=== PATIENT | female | born 1930 | race Caucasian/White ===

== ENCOUNTER 2017-08-20 13:09 | Inpatient (IN) | payer MEDICARE ==
[~2017-08-20] VITALS: Ht 162.6 cm; Wt 49.9 kg
[2017-08-20] MEDS ORDERED: Sodium Chloride 500ML 500 ML IV ONE (13:15)
[2017-08-20] MEDS ORDERED: MULTIGEN FOLIC1 EACH PO (13:19)
[2017-08-20] MEDS ORDERED: DICYCLOMINE HCL10 MG PO (13:19)
--- NOTE | 2017-08-20 13:19 | Emergency Room Report ---
History of Present Illness General Chief Complaint: Multiple Trauma/Fall Source: Patient, Medical Record, EMS Present Illness HPI Patient percent with complaints of fall and left-sided hip pain patient reports that she had a slip and fall denies any lightheadedness as any chest pain denies any focal weakness prior to the fall patient ambulates without any assistance Now she presents with pain to the left hip 06/04 reports of the morphine helped a little bit Denies any neuropathy otherwise Denies any neck pain denies any loss of consciousness Allergies: Coded Allergies: GABAPENTIN (Verified Allergy, Unknown, 08/20/17) HYDROCHLOROTHIAZIDE (Verified Allergy, Unknown, 08/20/17) PENTAZOCINE (Verified Allergy, Unknown, 08/20/17) Patient History Past Medical History: see triage record Pertinent Family History: none Reviewed Nursing Documentation: PMH: Agreed, PSxH: Agreed Nursing Documentation-PMH Past Medical History: No History, Except For Hx Hypertension: Yes Review of Systems All Other Systems: negative except mentioned in HPI Physical Exam Vital Signs Date Time Temp Pulse Resp B/P (MAP) Pulse Ox O2 Delivery O2 Flow Rate FiO2 08/20/17 13:00 97.9 64 16 128/66 98 Room Air Sp02 EP Interpretation: reviewed, normal General Appearance: well appearing, no apparent distress Head: normocephalic, atraumatic Eyes: bilateral eye PERRL, bilateral eye EOMI ENT: hearing grossly normal, normal pharynx, TMs + canals normal, uvula midline Neck: full range of motion, supple, no meningismus, no bony tend Respiratory: lungs clear, normal breath sounds, no rhonchi, no respiratory distress, no retraction, no accessory muscle use Cardiovascular #1: normal peripheral pulses, regular rate, rhythm, no edema, no gallop, no JVD, no murmur Gastrointestinal: normal bowel sounds, non tender, soft, no mass, no organomegaly, non-distended, no guarding, no hernia, no pulsatile mass, no rebound Genitourinary: no CVA tenderness Musculoskeletal: other - Patient is seated with left upper leg flex and even everted, tender with any slight touch. Neurovascularly intact however Neurologic: oriented x3, responsive, sensory intact Psychiatric: mood/affect normal Skin: normal color, no rash, warm/dry, palpation normal Lymphatic: normal inspection, no adenopathy Medical Decision Making Diagnostic Impression: Primary Impression: Hip fracture, left ER Course Given the patient's history and presentation imaging studies are obtained patient had preoperative for a evaluation as well CT imaging that showed left-sided femoral neck fracture Patient was further hydrated pain medications are provided At this time patient requires admission for further care Labs Test 08/20/17 13:35 White Blood Count 9.8 K/UL (4.8-10.8) Red Blood Count 3.16 M/UL (4.20-5.40) Hemoglobin 11.7 G/DL (12.0-16.0) Hematocrit 34.1 % (37.0-47.0) Mean Corpuscular Volume 108 FL (80-99) Mean Corpuscular Hemoglobin 37.1 PG (27.0-31.0) Mean Corpuscular Hemoglobin Concent 34.4 G/DL (32.0-36.0) Red Cell Distribution Width 11.6 % (11.6-14.8) Platelet Count 284 K/UL (150-450) Mean Platelet Volume 5.8 FL (6.5-10.1) Neutrophils (%) (Auto) 75.1 % (45.0-75.0) Lymphocytes (%) (Auto) 14.3 % (20.0-45.0) Monocytes (%) (Auto) 5.5 % (1.0-10.0) Eosinophils (%) (Auto) 4.2 % (0.0-3.0) Basophils (%) (Auto) 0.8 % (0.0-2.0) Prothrombin Time 9.6 SEC (9.30-11.50) Prothromb Time International Ratio 0.9 (0.9-1.1) Activated Partial Thromboplast Time 25 SEC (23-33) Sodium Level 141 MMOL/L (136-145) Potassium Level 4.4 MMOL/L (3.5-5.1) Chloride Level 106 MMOL/L (98-107) Carbon Dioxide Level 25 MMOL/L (21-32) Anion Gap 11 mmol/L (5-15) Blood Urea Nitrogen 32 mg/dL (7-18) Creatinine 1.3 MG/DL (0.55-1.30) Estimat Glomerular Filtration Rate mL/min (>60) Glucose Level 114 MG/DL (74-106) Calcium Level 9.4 MG/DL (8.5-10.1) Total Bilirubin 0.2 MG/DL (0.2-1.0) Aspartate Amino Transf (AST/SGOT) 27 U/L (15-37) Alanine Aminotransferase (ALT/SGPT) 34 U/L (12-78) Alkaline Phosphatase 85 U/L (46-116) Total Creatine Kinase 112 U/L (26-308) Creatine Kinase MB 2.1 NG/ML (0.0-3.6) Creatine Kinase MB Relative Index 1.8 Troponin I 0.017 ng/mL (0.000-0.056) Total Protein 6.9 G/DL (6.4-8.2) Albumin 3.7 G/DL (3.4-5.0) Globulin 3.2 g/dL Albumin/Globulin Ratio 1.2 (1.0-2.7) EKG Diagnostic Results Rate: normal Rhythm: NSR ST Segments: no acute changes Rhythm Strip Diag. Results EP Interpretation: yes Rate: 77 Rhythm: NSR, no PVC's, no ectopy Other X-Ray Diagnostic Results Other X-Ray Diagnostic Results : X-Ray ordered: left femur # of Views/Limited Vs Complete: 2 View Indication: Pain EP Interpretation: Yes Interpretation: no soft tissue swelling, other - Femoral neck fracture, displaced Impression: Other - acute fracture femoral neck Electronically Signed by: Kaveh Santa, CT/MRI/US Diagnostic Results CT/MRI/US Diagnostic Results : Impression CT pelvic:Impression: Severely comminuted and displaced fracture of the distal femoral neck and intertrochanteric region, as described Constipation Possible sequelae of prior L5-S1 spinal fusion with some retained hardware. Grade 1-2 spondylolisthesis of L5 on S1, no associated spondylolysis Other post surgical changes as described,, including right-sided sacral stimulator, evidence of prior hernia repair Colonic diverticulosis. The CT scanner at [facility] is accredited by the [employer] [place] [employer] and the scans are performed using protocols designed to limit radiation exposure to as low as reasonably achievable to attain images of sufficient resolution adequate for diagnostic evaluation. Last Vital Signs Date Time Temp Pulse Resp B/P (MAP) Pulse Ox O2 Delivery O2 Flow Rate FiO2 08/20/17 13:00 97.9 64 16 128/66 98 Room Air Status: improved Disposition: ADMITTED INPATIENT Condition: Serious KAEVH SANTA D.O. Aug 20, 2017 13:19
[2017-08-20] MEDS ORDERED: BUPRENORPHINE1 EAC1 TD (13:28)
[2017-08-20] MEDS ORDERED: BROMELAINS500 MG PO (13:28)
[2017-08-20] MEDS ORDERED: LEVOTHYROXINE75 MCG ORAL (13:28)
[2017-08-20] MEDS ORDERED: NAMENDA10 MG ORAL (13:28)
[2017-08-20] MEDS ORDERED: ASPIR 8181 MG ORAL (13:28)
[2017-08-20] MEDS ORDERED: METOPROLOL SUCC25 MG ORAL (13:28)
[2017-08-20] MEDS ORDERED: PRAVACHOL40 MG ORAL (13:28)
[2017-08-20] MEDS ORDERED: ZANTAC150 MG ORAL (13:28)
[2017-08-20] MEDS ORDERED: BIOTIN5000 MCG PO (13:28)
[2017-08-20] MEDS ORDERED: ALPHA LIPOIC AC50 M1 PO (13:28)
[2017-08-20] MEDS ORDERED: PAMELOR25 MG ORAL (13:28)
[2017-08-20] MEDS: Hydromorphone 0.5mg/0.5ml inj IVP ONE ×2 (13:35→13:37)
[2017-08-20] MEDS ORDERED: Morphine Sulfate 10mg/ml Inj IVP ONE (14:15)
[2017-08-20 14:21] LABS: BASOPHILS % (AUTO) 0.8 % (0.0-2.0); EOSINOPHILS % (AUTO) 4.2 % (0.0-3.0); HEMATOCRIT 34.1 % (37.0-47.0); HEMOGLOBIN 11.7 G/DL (12.0-16.0); LYMPHOCYTES % (AUTO) 14.3 % (20.0-45.0); MEAN CORPUSCULAR VOLUME 108 FL (80-99); MONOCYTES % (AUTO) 5.5 % (1.0-10.0); NEUTROPHILS % (AUTO) 75.1 % (45.0-75.0); PLATELET COUNT 284 K/UL (150-450); RED BLOOD COUNT 3.16 M/UL (4.20-5.40); RED CELL DISTRIBUTION WIDTH 11.6 % (11.6-14.8); WHITE BLOOD COUNT 9.8 K/UL (4.8-10.8)
[2017-08-20 14:28] LABS: INR 0.9 (0.9-1.1)
--- NOTE | 2017-08-20 14:42 | Diagnostic Imaging Report ---
Indication: TRAUMA left hip pain status post fall Technique: Noncontrast spiral acquisitions obtained through the pelvis. Multiplanar reconstructions generated. Total dose length product 369 mGycm. CTDIvol(s) 13 mGy. Dose reduction achieved using automated exposure control Comparison: None Findings: There is a complex severely comminuted fracture of the left femur. The fracture involves the distal femoral neck and the intertrochanteric region. The intertrochanteric portion of the fracture is severely comminuted. The distal femoral shaft is displaced anteriorly by over one bone width and significantly overrides, and the intervening fragments are severely angulated and displaced. There is only minimal if any overlying soft tissue contusion. There is no evidence of associated pelvic fracture. Right hip appears intact. There is a right buttock sacral stimulator artifact in place, with stimulator wire extending through the right S2 neural foramen into the posterior pelvis. The right lateral aspect of the L5-S1 disc appears to be ankylosed. Metallic foreign bodies in this area may represent old spinal fusion surgery hardware. There is grade 1-2 spondylolisthesis of L5 on S1. No associated pars defect The pelvic soft tissues are remarkable for the presence of considerable retained colonic fecal material. There is colonic diverticulosis. Hernia mesh anchors are seen in the anterior lower pelvis, especially to the left of midline Impression: Severely comminuted and displaced fracture of the distal femoral neck and intertrochanteric region, as described Constipation Possible sequelae of prior L5-S1 spinal fusion with some retained hardware. Grade 1-2 spondylolisthesis of L5 on S1, no associated spondylolysis Other post surgical changes as described,, including right-sided sacral stimulator, evidence of prior hernia repair Colonic diverticulosis. The CT scanner at [facility] is accredited by the [employer] and the scans are performed using protocols designed to limit radiation exposure to as low as reasonably achievable to attain images of sufficient resolution adequate for diagnostic evaluation.
[2017-08-20 14:44] LABS: ALANINE AMINOTRANSFERASE 34 U/L (12-78); ALBUMIN 3.7 G/DL (3.4-5.0); ALBUMIN/GLOBULIN RATIO 1.2 (1.0-2.7); ALKALINE PHOSPHATASE 85 U/L (46-116); ANION GAP 11 mmol/L (5-15); ASPARTATE AMINO TRANSFERASE 27 U/L (15-37); BILIRUBIN,TOTAL 0.2 MG/DL (0.2-1.0); BLOOD UREA NITROGEN 32 mg/dL (7-18); CALCIUM 9.4 MG/DL (8.5-10.1); CARBON DIOXIDE 25 MMOL/L (21-32); CHLORIDE 106 MMOL/L (98-107); CKMB 2.1 NG/ML (0.0-3.6); CREATINE KINASE 112 U/L (26-308); CREATININE 1.3 MG/DL (0.55-1.30); POTASSIUM 4.4 MMOL/L (3.5-5.1); SODIUM 141 MMOL/L (136-145)
[2017-08-20] MEDS ORDERED: Mylanta II UD 30ml ORAL PRN (14:45)
[2017-08-20] MEDS ORDERED: Miralax 17gm pkt ORAL PRN (14:45)
[2017-08-20] MEDS ORDERED: Zolpidem 5mg tab ORAL PRN (14:45)
[2017-08-20] MEDS ORDERED: Morphine Sulfate 2mg/ml Inj IVP PRN (14:45)
[2017-08-20 14:56] VITALS: BP 137/63
--- NOTE | 2017-08-20 15:17 | Diagnostic Imaging Report ---
Indication: Chest pain, status post fall Technique: One view of the chest Comparison: none Findings: Lungs are equivocally somewhat hyperinflated. Lung bases are clear. There is extensive tracheobronchial calcification. The heart size is normal. The aorta is tortuous and ectatic. Impression: Possible pulmonary hyperinflation, could indicate COPD changes. No acute process Findings as noted
--- NOTE | 2017-08-20 15:19 | Diagnostic Imaging Report ---
Indications: Pain, trauma, status post fall Technique: One view of the left femur Comparison: CT scan earlier the same day Findings: Severely comminuted fracture of the intertrochanteric region of the left femur noted. This demonstrates significant override, anterior displacement by one bone width. No distal fracture demonstrated. Impression: Positive for left hip intertrochanteric fracture, also previously reported in detail on recent CT scan
[2017-08-20 15:45] VITALS: BP 142/70
[2017-08-20] MEDS: D5 1/2NS 1,000 ML IV SCH (16:00)
[2017-08-20] MEDS: Morphine Sulfate 2mg/ml Inj IVP PRN (17:52)
[2017-08-20 18:00] VITALS: BP 139/70
--- NOTE | 2017-08-20 19:09 | History & Physical ---
History and Physical History & Physicial Dictated for Int Med-Dr Leigh no. [id number]. AEV DICKNISON Aug 20, 2017 19:09
--- NOTE | 2017-08-20 19:09 | History & Physical ---
History and Physical History & Physicial Dictated for Int Med-Dr Leigh no. [id number]. AVE DICKINSON Aug 20, 2017 19:09
--- NOTE | 2017-08-20 19:09 | History & Physical ---
History and Physical History & Physicial Dictated for Int Med-Dr Leigh no. [id number]. AVE DICKINSON Aug 20, 2017 19:09
[2017-08-20 20:00] VITALS: BP 132/69
[2017-08-20] MEDS: Memantine 10mg tab ORAL SCH (20:09)
[2017-08-20] MEDS: Heparin 5000 units/ml inj SUBQ SCH (20:45)
[2017-08-20] MEDS: NovoLOG Insulin Flexpen SUBQ SCH (20:46)
--- NOTE | 2017-08-20 22:01 | History and Physical Report ---
DATE OF ADMISSION: 08/20/2017 CHIEF COMPLAINT: The patient is an 86-year-old white female presents with a chief complaint of left hip pain. HISTORY OF PRESENT ILLNESS: It began approximately at 2:30 this afternoon. The patient was walking from the bedroom to the bathroom. The patient had a slip and fall injury. The patient denies loss of consciousness. The patient presented to [place] emergency room. The patient was complaining of left hip pain. A CT scan and x-rays revealed displaced fracture of the left intertrochanteric femoral neck. The patient is admitted with left intertrochanteric femur fracture. PAST MEDICAL HISTORY: Significant for: 1. Type 2 diabetes. 2. Hypertension. 3. Hypothyroidism. PAST SURGICAL HISTORY: Significant for: 1. Appendectomy. 2. Thyroidectomy. 3. Right elbow open reduction internal fixation. 4. Abdominal hernia repair. CURRENT MEDICATIONS: 1. Aspirin 81 mg one tablet p.o. daily. 2. Buprenorphine patch apply weekly. 3. Bentyl 20 mg one tablet p.o. q.6 hours p.r.n. 4. Iron sulfate one tablet p.o. twice daily. 5. Levoxyl 0.075 mg p.o. daily. 6. Metoprolol 25 mg one tablet p.o. daily. 7. Nortriptyline 75 mg one tablet p.o. daily. 8. Pravachol 40 mg one tablet p.o. at bedtime. 9. Zantac 150 mg one tablet p.o. daily. 10. Metformin 500 mg one tablet p.o. twice daily. ALLERGIES: 1. Pollen. 2. Neurontin. 3. Hydrochlorothiazide. 4. Pentazocine. SOCIAL HISTORY: The patient is and lives with her . The patient denies tobacco or alcohol use. REVIEW OF SYSTEMS: CONSTITUTIONAL: The patient denies weight loss or weight gain. The patient denies fevers or chills. HEENT: The patient denies ear or throat pain. The patient denies headache. CARDIOVASCULAR: The patient denies palpitations or chest pain. CHEST: The patient denies wheeze or shortness of breath. ABDOMEN: The patient denies nausea, vomiting, diarrhea, or constipation. GENITOURINARY: The patient denies dysuria or increased frequency of urination. NEUROMUSCULAR: The patient complains of left hip pain as above. The patient denies seizures or generalized weakness. PHYSICAL EXAMINATION: VITAL SIGNS: Temperature 97.9 degrees, respirations 16, pulse 64, and blood pressure 120/66. GENERAL: The patient is a well-developed and well-nourished, thin appearing, white female, in no apparent distress. HEENT: Eyes, pupils equal and responsive to light and accommodation. Extraocular movements are intact. NECK: Supple without lymphadenopathy. CHEST: Lungs are clear to auscultation bilaterally without wheezes or rales. CARDIOVASCULAR: Regular rhythm and rate. S1 and S2 are normal without murmurs, rubs, or gallops. ABDOMEN: Soft, nontender, and nondistended. Positive bowel sounds. No evidence of hepatosplenomegaly. Currently, no rebound or guarding noted. EXTREMITIES: Negative for clubbing, cyanosis, or edema. There is pain to palpation of the left hip. NEUROLOGIC: Cranial nerves II to XII are grossly intact without focal deficits. LABORATORY STUDIES: WBC 9.8, hemoglobin 11.7, hematocrit 34.1, and platelets 284,000. Sodium 141, potassium 4.4, chloride 106, CO2 25, BUN 32, creatinine 1.3, and glucose 114. A CT scan and x-ray of the left hip revealed a displaced left intertrochanteric femur fracture. ASSESSMENT: This is an 86-year-old white female. 1. Displaced left intertrochanteric femur fracture. 2. Left hip pain. 3. Diabetes type 2. 4. Hypothyroidism. 5. Hypertension. 6. Alzheimer's dementia. TREATMENT: 1. Left hip pain/displaced left intertrochanteric femur fracture. An Orthopedic consultation was obtained with Dr. Guy Granados. A Cardiology clearance for surgery is pending. We will follow recommendations of Orthopedic Surgery. 2. Diabetes type 2. The patient is currently not on antihyperglycemic medication. Accu-Cheks will be performed daily before meals and at bedtime. 3. Hypothyroidism. Continue Levoxyl as above. 4. Hypertension. Continue metoprolol as above. 5. Alzheimer's dementia. Continue Namenda as above. Elliott Alcantara M.D. DR: ALEXANDER JOB#: [id number] CC:
[2017-08-20] MEDS: LORazepam Inj 2mg/ml 1ml IV PRN (23:10)
[2017-08-21] VITALS (18 sets, daily range): BP systolic 88–143; BP diastolic 45–81
[2017-08-21] MEDS: Morphine Sulfate 2mg/ml Inj IVP PRN ×2 (01:43→05:54)
[2017-08-21] MEDS ORDERED: Morphine Sulfate 4mg/ml Inj ONE (05:49)
[2017-08-21] MEDS: NovoLOG Insulin Flexpen SUBQ SCH ×4 (06:02→21:00)
[2017-08-21 07:54] LABS: BASOPHILS % (AUTO) 0.7 % (0.0-2.0); EOSINOPHILS % (AUTO) 0.6 % (0.0-3.0); HEMATOCRIT 29.2 % (37.0-47.0); HEMOGLOBIN 9.9 G/DL (12.0-16.0); LYMPHOCYTES % (AUTO) 22.8 % (20.0-45.0); MEAN CORPUSCULAR VOLUME 107 FL (80-99); MONOCYTES % (AUTO) 16.2 % (1.0-10.0); NEUTROPHILS % (AUTO) 59.7 % (45.0-75.0); PLATELET COUNT 271 K/UL (150-450); RED BLOOD COUNT 2.73 M/UL (4.20-5.40); RED CELL DISTRIBUTION WIDTH 11.6 % (11.6-14.8); WHITE BLOOD COUNT 9.2 K/UL (4.8-10.8)
[2017-08-21 08:06] LABS: INR 0.9 (0.9-1.1)
[2017-08-21 08:22] LABS: ALANINE AMINOTRANSFERASE 26 U/L (12-78); ALBUMIN 3.5 G/DL (3.4-5.0); ALBUMIN/GLOBULIN RATIO 1.1 (1.0-2.7); ALKALINE PHOSPHATASE 73 U/L (46-116); ANION GAP 9 mmol/L (5-15); ASPARTATE AMINO TRANSFERASE 19 U/L (15-37); BILIRUBIN,TOTAL 0.3 MG/DL (0.2-1.0); BLOOD UREA NITROGEN 31 mg/dL (7-18); CALCIUM 8.8 MG/DL (8.5-10.1); CARBON DIOXIDE 25 MMOL/L (21-32); CHLORIDE 105 MMOL/L (98-107); CREATININE 1.5 MG/DL (0.55-1.30); POTASSIUM 4.3 MMOL/L (3.5-5.1); SODIUM 139 MMOL/L (136-145)
[2017-08-21] MEDS: Heparin 5000 units/ml inj SUBQ SCH ×2 (09:00→21:00)
[2017-08-21] MEDS: Nortriptyline 25mg cap ORAL SCH (09:00)
[2017-08-21] MEDS: Memantine 10mg tab ORAL SCH ×2 (09:00→18:00)
--- NOTE | 2017-08-21 09:17 | Consultation ---
History of Present Illness General Date patient seen: Aug 21, 2017 Chief Complaint: Multiple Trauma/Fall Present Illness Allergies: Coded Allergies: GABAPENTIN (Verified Allergy, Unknown, 08/20/17) HYDROCHLOROTHIAZIDE (Verified Allergy, Unknown, 08/20/17) PENTAZOCINE (Verified Allergy, Unknown, 08/20/17) Medication History Scheduled Alpha Lipoic Acid (Alpha Lipoic Acid), Unknown Dose PO DAILY, (Reported) Aspirin* (Aspir 81*), 81 MG ORAL DAILY, (Reported) Biotin (Biotin), 5,000 MCG PO DAILY, (Reported) Bromelains (Bromelains), 500 MG PO DAILY, (Reported) Dicyclomine Hcl* (Dicyclomine Hcl*), 20 MG PO Q6HR, (Reported) Iron Aspgly/C/B12/Fa/Ca-Th/Suc (Multigen Folic Caplet), 1 EACH PO BID, (Reported ) Levothyroxine Sodium* (Levothyroxine Sodium*), 75 MCG ORAL DAILY, (Reported) Memantine Hcl* (Namenda*), 10 MG ORAL TWICE A DAY, (Reported) Metoprolol Succinate* (Metoprolol Succinate*), 25 MG ORAL DAILY, (Reported) Nortriptyline Hcl* (Pamelor*), 75 MG ORAL DAILY, (Reported) Pravastatin Sodium (Pravachol), 40 MG ORAL BEDTIME, (Reported) Ranitidine Hcl* (Zantac*), 150 MG ORAL DAILY, (Reported) Miscellaneous Medications Buprenorphine (Buprenorphine), 1 EACH TD, (Reported) Patient History Healthcare decision maker Resuscitation status Full Code Advanced Directive on File Physical Exam Last 24 Hour Vital Signs Date Time Temp Pulse Resp B/P (MAP) Pulse Ox O2 Delivery O2 Flow Rate FiO2 08/21/17 08:00 99.4 74 18 143/66 98 Room Air 08/21/17 04:09 98.9 69 19 118/81 97 Room Air 08/21/17 00:04 99.9 75 18 131/63 97 Room Air 08/20/17 20:00 99.0 74 18 132/69 95 Room Air 08/20/17 18:00 98.3 60 18 139/70 100 Room Air 08/20/17 15:45 98.5 59 17 142/70 100 Room Air 08/20/17 15:12 97.8 61 16 137/63 100 Room Air 08/20/17 14:56 61 16 137/63 100 Room Air 08/20/17 14:49 97.8 08/20/17 13:00 97.9 64 16 128/66 98 Room Air Laboratory Tests Test 08/20/17 13:35 08/21/17 05:40 White Blood Count 9.8 K/UL (4.8-10.8) 9.2 K/UL (4.8-10.8) Red Blood Count 3.16 M/UL (4.20-5.40) L 2.73 M/UL (4.20-5.40) L Hemoglobin 11.7 G/DL (12.0-16.0) L 9.9 G/DL (12.0-16.0) L Hematocrit 34.1 % (37.0-47.0) L 29.2 % (37.0-47.0) L Mean Corpuscular Volume 108 FL (80-99) H 107 FL (80-99) H Mean Corpuscular Hemoglobin 37.1 PG (27.0-31.0) H 36.2 PG (27.0-31.0) H Mean Corpuscular Hemoglobin Concent 34.4 G/DL (32.0-36.0) 33.9 G/DL (32.0-36.0) Red Cell Distribution Width 11.6 % (11.6-14.8) 11.6 % (11.6-14.8) Platelet Count 284 K/UL (150-450) 271 K/UL (150-450) Mean Platelet Volume 5.8 FL (6.5-10.1) L 5.8 FL (6.5-10.1) L Neutrophils (%) (Auto) 75.1 % (45.0-75.0) H 59.7 % (45.0-75.0) Lymphocytes (%) (Auto) 14.3 % (20.0-45.0) L 22.8 % (20.0-45.0) Monocytes (%) (Auto) 5.5 % (1.0-10.0) 16.2 % (1.0-10.0) H Eosinophils (%) (Auto) 4.2 % (0.0-3.0) H 0.6 % (0.0-3.0) Basophils (%) (Auto) 0.8 % (0.0-2.0) 0.7 % (0.0-2.0) Prothrombin Time 9.6 SEC (9.30-11.50) 9.6 SEC (9.30-11.50) Prothromb Time International Ratio 0.9 (0.9-1.1) 0.9 (0.9-1.1) Activated Partial Thromboplast Time 25 SEC (23-33) Sodium Level 141 MMOL/L (136-145) 139 MMOL/L (136-145) Potassium Level 4.4 MMOL/L (3.5-5.1) 4.3 MMOL/L (3.5-5.1) Chloride Level 106 MMOL/L (98-107) 105 MMOL/L (98-107) Carbon Dioxide Level 25 MMOL/L (21-32) 25 MMOL/L (21-32) Anion Gap 11 mmol/L (5-15) 9 mmol/L (5-15) Blood Urea Nitrogen 32 mg/dL (7-18) H 31 mg/dL (7-18) H Creatinine 1.3 MG/DL (0.55-1.30) 1.5 MG/DL (0.55-1.30) H Estimat Glomerular Filtration Rate mL/min (>60) mL/min (>60) Glucose Level 114 MG/DL (74-106) H 109 MG/DL (74-106) H Hemoglobin A1c 6.1 % (4.3-6.0) H Calcium Level 9.4 MG/DL (8.5-10.1) 8.8 MG/DL (8.5-10.1) Total Bilirubin 0.2 MG/DL (0.2-1.0) 0.3 MG/DL (0.2-1.0) Aspartate Amino Transf (AST/SGOT) 27 U/L (15-37) 19 U/L (15-37) Alanine Aminotransferase (ALT/SGPT) 34 U/L (12-78) 26 U/L (12-78) Alkaline Phosphatase 85 U/L (46-116) 73 U/L (46-116) Total Creatine Kinase 112 U/L (26-308) Creatine Kinase MB 2.1 NG/ML (0.0-3.6) Creatine Kinase MB Relative Index 1.8 Troponin I 0.017 ng/mL (0.000-0.056) Total Protein 6.9 G/DL (6.4-8.2) 6.6 G/DL (6.4-8.2) Albumin 3.7 G/DL (3.4-5.0) 3.5 G/DL (3.4-5.0) Globulin 3.2 g/dL 3.1 g/dL Albumin/Globulin Ratio 1.2 (1.0-2.7) 1.1 (1.0-2.7) Thyroid Stimulating Hormone (TSH) 1.192 uiU/mL (0.360-3.740) Height (Feet): 5 Height (Inches): 4.00 Weight (Pounds): 110 Medications Current Medications Medications (Trade) Dose Ordered Sig/Lesa Route PRN Reason Start Time Stop Time Status Last Admin Dose Admin Acetaminophen (Tylenol) 650 mg Q4H PRN ORAL fever 08/20/17 14:45 09/19/17 14:44 Acetaminophen/ Hydrocodone Bitart (Catherine 10) 1 ea Q6H PRN ORAL moderate pain 08/21/17 09:15 08/28/17 09:14 UNV Al Hydroxide/Mg Hydroxide (Mylanta II) 30 ml Q6H PRN ORAL dyspepsia 08/20/17 14:45 09/19/17 14:44 Dextrose (Dextrose 50%) STAT PRN IV Hypoglycemia 08/20/17 14:45 09/19/17 14:44 Dextrose (Dextrose 50%) STAT PRN IV Hypoglycemia 08/20/17 19:15 09/19/17 19:14 Dextrose/Sodium Chloride 1,000 ml @ 50 mls/hr Q20H IV 08/20/17 14:40 09/19/17 14:39 08/20/17 16:00 Heparin Sodium (Porcine) (Heparin 5000 units/ml) 5,000 units EVERY 12 HOURS SUBQ 08/20/17 21:00 09/19/17 20:59 08/20/17 20:45 Insulin Aspart (NovoLOG) BEFORE MEALS AND HS SUBQ 08/20/17 21:00 09/19/17 20:59 08/21/17 06:02 Levothyroxine Sodium (Synthroid) 75 mcg DAILY ORAL 08/21/17 09:00 09/20/17 08:59 Lorazepam (Ativan 2mg/ml 1ml) 0.5 mg Q4H PRN IV For Anxiety 08/20/17 14:45 08/27/17 14:44 08/20/17 23:10 Memantine (Namenda) 10 mg TWICE A DAY ORAL 08/20/17 18:00 09/19/17 17:59 08/20/17 20:09 Metoprolol Succinate (Toprol XL) 25 mg DAILY ORAL 08/21/17 09:00 09/20/17 08:59 Morphine Sulfate (Morphine Sulfate) 4 mg Q4H PRN IVP For Pain 7-10 08/20/17 14:45 08/27/17 14:44 Nortriptyline HCl (Pamelor) 75 mg DAILY ORAL 08/21/17 09:00 09/20/17 08:59 Ondansetron HCl (Zofran) 4 mg Q6H PRN IVP Nausea & Vomiting 08/20/17 14:45 09/19/17 14:44 Polyethylene Glycol (Miralax) 17 gm HSPRN PRN ORAL Constipation 08/20/17 14:45 09/19/17 14:44 Pravastatin Sodium (Pravachol) 40 mg BEDTIME ORAL 08/20/17 21:00 09/19/17 20:59 08/20/17 20:42 Ranitidine HCl (Zantac) 150 mg DAILY ORAL 08/21/17 09:00 09/20/17 08:59 Zolpidem Tartrate (Ambien) 5 mg HSPRN PRN ORAL Insomnia 08/20/17 14:45 08/27/17 14:44 Assessment/Plan Assessment/Plan (1) Left hip pain (2) Left hip fracture (3) Lumbar DDD (4) Lumbar Spondylosis (5) H/o Lumbar fusion seen dictated BOBY SARMIENTO Aug 21, 2017 09:17
[2017-08-21] MEDS: Metoprolol Succinate XL 25mg tab ORAL SCH (09:41)
[2017-08-21] MEDS ORDERED: Morphine Sulfate 10mg/ml Inj IVP PRN (09:45)
[2017-08-21] MEDS ORDERED: Norco 10mg/325mg tab ORAL PRN (10:00)
[2017-08-21] MEDS: D5 1/2NS 1,000 ML IV SCH (10:16)
--- NOTE | 2017-08-21 12:59 | Cardiac Electrophysiology PN ---
Subjective Subjective consult dictated [id number] EF. Mild , No CHF or CAD. No ischemia on ECG. OK to proceed with Left hip ORIF from cardiac stand point Objective Last 24 Hour Vital Signs Date Time Temp Pulse Resp B/P (MAP) Pulse Ox O2 Delivery O2 Flow Rate FiO2 08/21/17 11:44 98.5 68 20 122/66 98 Room Air 08/21/17 09:41 74 143/66 08/21/17 08:00 99.4 74 18 143/66 98 Room Air 08/21/17 04:09 98.9 69 19 118/81 97 Room Air 08/21/17 00:04 99.9 75 18 131/63 97 Room Air 08/20/17 20:00 99.0 74 18 132/69 95 Room Air 08/20/17 18:00 98.3 60 18 139/70 100 Room Air 08/20/17 15:45 98.5 59 17 142/70 100 Room Air 08/20/17 15:12 97.8 61 16 137/63 100 Room Air 08/20/17 14:56 61 16 137/63 100 Room Air 08/20/17 14:49 97.8 08/20/17 13:00 97.9 64 16 128/66 98 Room Air Intake and Output 08/21/17 08/22/17 19:00 07:00 # Voids 1 Laboratory Tests Test 08/20/17 13:35 08/21/17 05:40 White Blood Count 9.8 K/UL (4.8-10.8) 9.2 K/UL (4.8-10.8) Red Blood Count 3.16 M/UL (4.20-5.40) L 2.73 M/UL (4.20-5.40) L Hemoglobin 11.7 G/DL (12.0-16.0) L 9.9 G/DL (12.0-16.0) L Hematocrit 34.1 % (37.0-47.0) L 29.2 % (37.0-47.0) L Mean Corpuscular Volume 108 FL (80-99) H 107 FL (80-99) H Mean Corpuscular Hemoglobin 37.1 PG (27.0-31.0) H 36.2 PG (27.0-31.0) H Mean Corpuscular Hemoglobin Concent 34.4 G/DL (32.0-36.0) 33.9 G/DL (32.0-36.0) Red Cell Distribution Width 11.6 % (11.6-14.8) 11.6 % (11.6-14.8) Platelet Count 284 K/UL (150-450) 271 K/UL (150-450) Mean Platelet Volume 5.8 FL (6.5-10.1) L 5.8 FL (6.5-10.1) L Neutrophils (%) (Auto) 75.1 % (45.0-75.0) H 59.7 % (45.0-75.0) Lymphocytes (%) (Auto) 14.3 % (20.0-45.0) L 22.8 % (20.0-45.0) Monocytes (%) (Auto) 5.5 % (1.0-10.0) 16.2 % (1.0-10.0) H Eosinophils (%) (Auto) 4.2 % (0.0-3.0) H 0.6 % (0.0-3.0) Basophils (%) (Auto) 0.8 % (0.0-2.0) 0.7 % (0.0-2.0) Prothrombin Time 9.6 SEC (9.30-11.50) 9.6 SEC (9.30-11.50) Prothromb Time International Ratio 0.9 (0.9-1.1) 0.9 (0.9-1.1) Activated Partial Thromboplast Time 25 SEC (23-33) Sodium Level 141 MMOL/L (136-145) 139 MMOL/L (136-145) Potassium Level 4.4 MMOL/L (3.5-5.1) 4.3 MMOL/L (3.5-5.1) Chloride Level 106 MMOL/L (98-107) 105 MMOL/L (98-107) Carbon Dioxide Level 25 MMOL/L (21-32) 25 MMOL/L (21-32) Anion Gap 11 mmol/L (5-15) 9 mmol/L (5-15) Blood Urea Nitrogen 32 mg/dL (7-18) H 31 mg/dL (7-18) H Creatinine 1.3 MG/DL (0.55-1.30) 1.5 MG/DL (0.55-1.30) H Estimat Glomerular Filtration Rate mL/min (>60) mL/min (>60) Glucose Level 114 MG/DL (74-106) H 109 MG/DL (74-106) H Hemoglobin A1c 6.1 % (4.3-6.0) H Calcium Level 9.4 MG/DL (8.5-10.1) 8.8 MG/DL (8.5-10.1) Total Bilirubin 0.2 MG/DL (0.2-1.0) 0.3 MG/DL (0.2-1.0) Aspartate Amino Transf (AST/SGOT) 27 U/L (15-37) 19 U/L (15-37) Alanine Aminotransferase (ALT/SGPT) 34 U/L (12-78) 26 U/L (12-78) Alkaline Phosphatase 85 U/L (46-116) 73 U/L (46-116) Total Creatine Kinase 112 U/L (26-308) Creatine Kinase MB 2.1 NG/ML (0.0-3.6) Creatine Kinase MB Relative Index 1.8 Troponin I 0.017 ng/mL (0.000-0.056) Total Protein 6.9 G/DL (6.4-8.2) 6.6 G/DL (6.4-8.2) Albumin 3.7 G/DL (3.4-5.0) 3.5 G/DL (3.4-5.0) Globulin 3.2 g/dL 3.1 g/dL Albumin/Globulin Ratio 1.2 (1.0-2.7) 1.1 (1.0-2.7) Thyroid Stimulating Hormone (TSH) 1.192 uiU/mL (0.360-3.740) VIVIAN MCCONNELL Aug 21, 2017 12:59
--- NOTE | 2017-08-21 13:53 | Consultation ---
History of Present Illness General Date patient seen: Aug 21, 2017 Time patient seen: 13:00 Chief Complaint: Multiple Trauma/Fall Referring physician: dr Leigh Reason for Consultation: inpatient management Present Illness HPI 86 y/old female with PMH of DM , HTN, hypothyroidism sustained mechanical fall while ambulated to the bathroom in her house She denied LOS, blackouts, dizziness, lightheadedness, head injury, trauma workup in ED revealed left hip severely comminuted and displaced fracture of the distal femoral neck and intertrochanteric region, patient was admitted for further management Allergies: Coded Allergies: GABAPENTIN (Verified Allergy, Unknown, 08/20/17) HYDROCHLOROTHIAZIDE (Verified Allergy, Unknown, 08/20/17) PENTAZOCINE (Verified Allergy, Unknown, 08/20/17) Medication History Scheduled Alpha Lipoic Acid (Alpha Lipoic Acid), Unknown Dose PO DAILY, (Reported) Aspirin* (Aspir 81*), 81 MG ORAL DAILY, (Reported) Biotin (Biotin), 5,000 MCG PO DAILY, (Reported) Bromelains (Bromelains), 500 MG PO DAILY, (Reported) Dicyclomine Hcl* (Dicyclomine Hcl*), 20 MG PO Q6HR, (Reported) Iron Aspgly/C/B12/Fa/Ca-Th/Suc (Multigen Folic Caplet), 1 EACH PO BID, (Reported ) Levothyroxine Sodium* (Levothyroxine Sodium*), 75 MCG ORAL DAILY, (Reported) Memantine Hcl* (Namenda*), 10 MG ORAL TWICE A DAY, (Reported) Metoprolol Succinate* (Metoprolol Succinate*), 25 MG ORAL DAILY, (Reported) Nortriptyline Hcl* (Pamelor*), 75 MG ORAL DAILY, (Reported) Pravastatin Sodium (Pravachol), 40 MG ORAL BEDTIME, (Reported) Ranitidine Hcl* (Zantac*), 150 MG ORAL DAILY, (Reported) Miscellaneous Medications Buprenorphine (Buprenorphine), 1 EACH TD, (Reported) Patient History History Provided By: Patient Healthcare decision maker Resuscitation status Full Code Advanced Directive on File Past Medical/Surgical History Past Medical/Surgical History: (1) Hypothyroidism (2) Diabetes (3) HTN (hypertension) Review of Systems Constitutional: Reports: weakness Eye: Reports: no symptoms ENT: Reports: no symptoms Respiratory: Reports: no symptoms Cardiovascular: Reports: other - HTN Gastrointestinal: Reports: no symptoms Genitourinary: Reports: no symptoms Musculoskeletal: Reports: see HPI Skin: Reports: no symptoms Psychiatric: Reports: no symptoms Neurological: Reports: no symptoms Endocrine: Reports: other - DM, hypothyroidism Hematologic/Lymphatic: Reports: no symptoms Physical Exam General Appearance: alert, other - thin female in NAD Lines, tubes and drains: peripheral HEENT: normocephalic, atraumatic, anicteric Neck: non-tender, supple Respiratory/Chest: lungs clear, no respiratory distress, no accessory muscle use Cardiovascular/Chest: normal peripheral pulses, normal rate, regular rhythm, no JVD Abdomen: normal bowel sounds, non tender, soft Extremities: other - left hi with external rotation Neurologic: abnormal gait, alert, oriented x 3, responsive Last 24 Hour Vital Signs Date Time Temp Pulse Resp B/P (MAP) Pulse Ox O2 Delivery O2 Flow Rate FiO2 08/21/17 11:44 98.5 68 20 122/66 98 Room Air 08/21/17 09:41 74 143/66 08/21/17 08:00 99.4 74 18 143/66 98 Room Air 08/21/17 04:09 98.9 69 19 118/81 97 Room Air 08/21/17 00:04 99.9 75 18 131/63 97 Room Air 08/20/17 20:00 99.0 74 18 132/69 95 Room Air 08/20/17 18:00 98.3 60 18 139/70 100 Room Air 08/20/17 15:45 98.5 59 17 142/70 100 Room Air 08/20/17 15:12 97.8 61 16 137/63 100 Room Air 08/20/17 14:56 61 16 137/63 100 Room Air 08/20/17 14:49 97.8 Intake and Output 08/21/17 08/22/17 19:00 07:00 # Voids 1 Laboratory Tests Test 08/21/17 05:40 White Blood Count 9.2 K/UL (4.8-10.8) Red Blood Count 2.73 M/UL (4.20-5.40) L Hemoglobin 9.9 G/DL (12.0-16.0) L Hematocrit 29.2 % (37.0-47.0) L Mean Corpuscular Volume 107 FL (80-99) H Mean Corpuscular Hemoglobin 36.2 PG (27.0-31.0) H Mean Corpuscular Hemoglobin Concent 33.9 G/DL (32.0-36.0) Red Cell Distribution Width 11.6 % (11.6-14.8) Platelet Count 271 K/UL (150-450) Mean Platelet Volume 5.8 FL (6.5-10.1) L Neutrophils (%) (Auto) 59.7 % (45.0-75.0) Lymphocytes (%) (Auto) 22.8 % (20.0-45.0) Monocytes (%) (Auto) 16.2 % (1.0-10.0) H Eosinophils (%) (Auto) 0.6 % (0.0-3.0) Basophils (%) (Auto) 0.7 % (0.0-2.0) Prothrombin Time 9.6 SEC (9.30-11.50) Prothromb Time International Ratio 0.9 (0.9-1.1) Sodium Level 139 MMOL/L (136-145) Potassium Level 4.3 MMOL/L (3.5-5.1) Chloride Level 105 MMOL/L (98-107) Carbon Dioxide Level 25 MMOL/L (21-32) Anion Gap 9 mmol/L (5-15) Blood Urea Nitrogen 31 mg/dL (7-18) H Creatinine 1.5 MG/DL (0.55-1.30) H Estimat Glomerular Filtration Rate mL/min (>60) Glucose Level 109 MG/DL (74-106) H Calcium Level 8.8 MG/DL (8.5-10.1) Total Bilirubin 0.3 MG/DL (0.2-1.0) Aspartate Amino Transf (AST/SGOT) 19 U/L (15-37) Alanine Aminotransferase (ALT/SGPT) 26 U/L (12-78) Alkaline Phosphatase 73 U/L (46-116) Total Protein 6.6 G/DL (6.4-8.2) Albumin 3.5 G/DL (3.4-5.0) Globulin 3.1 g/dL Albumin/Globulin Ratio 1.1 (1.0-2.7) Thyroid Stimulating Hormone (TSH) 1.192 uiU/mL (0.360-3.740) Height (Feet): 5 Height (Inches): 4.00 Weight (Pounds): 110 Medications Current Medications Medications (Trade) Dose Ordered Sig/Lesa Route PRN Reason Start Time Stop Time Status Last Admin Dose Admin Acetaminophen (Tylenol) 650 mg Q4H PRN ORAL fever 08/20/17 14:45 09/19/17 14:44 Acetaminophen/ Hydrocodone Bitart ([place] 10/325) 1 ea Q6H PRN ORAL Moderate Pain (Pain Scale 4-6) 08/21/17 10:00 08/28/17 09:59 Al Hydroxide/Mg Hydroxide (Mylanta II) 30 ml Q6H PRN ORAL dyspepsia 08/20/17 14:45 09/19/17 14:44 Dextrose (Dextrose 50%) STAT PRN IV Hypoglycemia 08/20/17 19:15 09/19/17 19:14 Dextrose/Sodium Chloride 1,000 ml @ 50 mls/hr Q20H IV 08/20/17 14:40 09/19/17 14:39 08/21/17 10:16 Heparin Sodium (Porcine) (Heparin 5000 units/ml) 5,000 units EVERY 12 HOURS SUBQ 08/20/17 21:00 09/19/17 20:59 08/20/17 20:45 Insulin Aspart (NovoLOG) BEFORE MEALS AND HS SUBQ 08/20/17 21:00 09/19/17 20:59 08/21/17 06:02 Levothyroxine Sodium (Synthroid) 75 mcg DAILY ORAL 08/21/17 09:00 09/20/17 08:59 Lorazepam (Ativan 2mg/ml 1ml) 0.5 mg Q4H PRN IV For Anxiety 08/20/17 14:45 08/27/17 14:44 08/20/17 23:10 Memantine (Namenda) 10 mg TWICE A DAY ORAL 08/20/17 18:00 09/19/17 17:59 08/20/17 20:09 Metoprolol Succinate (Toprol XL) 25 mg DAILY ORAL 08/21/17 09:00 09/20/17 08:59 08/21/17 09:41 Morphine Sulfate (Morphine Sulfate) 4 mg Q4H PRN IVP For Pain 7-10 08/21/17 09:45 08/28/17 13:44 Nortriptyline HCl (Pamelor) 75 mg DAILY ORAL 08/21/17 09:00 09/20/17 08:59 Ondansetron HCl (Zofran) 4 mg Q6H PRN IVP Nausea & Vomiting 08/20/17 14:45 09/19/17 14:44 Polyethylene Glycol (Miralax) 17 gm HSPRN PRN ORAL Constipation 08/20/17 14:45 09/19/17 14:44 Pravastatin Sodium (Pravachol) 40 mg BEDTIME ORAL 08/20/17 21:00 09/19/17 20:59 08/20/17 20:42 Ranitidine HCl (Zantac) 150 mg DAILY ORAL 08/21/17 09:00 09/20/17 08:59 Zolpidem Tartrate (Ambien) 5 mg HSPRN PRN ORAL Insomnia 08/20/17 14:45 08/27/17 14:44 Assessment/Plan Assessment/Plan ASSESSMENT s/p mechanical fall severely comminuted and displaced fracture of the distal femoral neck and intertrochanteric region left hip pain DM HTN anemia possible malnutrition PLAN OF CARE MS floor NPO ortho seen and evaluated , need surgery ORIF L hup cardio follows per cardio -NL EF. Mild , No CHF or CAD. No ischemia on ECG. clearance given for surgery surgery today pain management start DVT prophylaxis after surgery when celared by surgeon start PT after surgery IS at the bedside BS, BP management dietary eval case discussed and evaluated by supervising physician Bethany Rebolledo NP ([place]) Aug 21, 2017 13:53
--- NOTE | 2017-08-21 15:07 | Pre-Procedure Note/Attestation ---
Pre-Procedure Note/Attestation Complete Prior to Procedure Planned Procedure: left Procedure Narrative: hip orif Indications for Procedure Pre-Operative Diagnosis: left hip fracture Attestation I attest that I discussed the nature of the procedure; its benefits; risks and complications; and alternatives (and the risks and benefits of such alternatives ), prior to the procedure, with the patient (or the patient's legal professional healthcare representative). I attest that, if there was a reasonable possibility of needing a blood transfusion, the patient (or the patient's legal professional healthcare representative) was given the [facility] of Health Services standardized written summary, pursuant to the Howard Brinkley Blood Safety Act ([place] Health and Safety Code # 1645, as amended). I attest that I re-evaluated the patient just prior to the surgery and that there has been no change in the patient's H&P, except as documented below: DARIAN ESPARZA Aug 21, 2017 15:07
--- NOTE | 2017-08-21 15:07 | Pre-Procedure Note/Attestation ---
Pre-Procedure Note/Attestation Complete Prior to Procedure Planned Procedure: left Procedure Narrative: hip orif Indications for Procedure Pre-Operative Diagnosis: left hip fracture Attestation I attest that I discussed the nature of the procedure; its benefits; risks and complications; and alternatives (and the risks and benefits of such alternatives ), prior to the procedure, with the patient (or the patient's legal payroll representative). I attest that, if there was a reasonable possibility of needing a blood transfusion, the patient (or the patient's legal payroll representative) was given the [facility] of Health Services standardized written summary, pursuant to the Howard Sebastian Blood Safety Act ([place] Health and Safety Code # 1645, as amended). I attest that I re-evaluated the patient just prior to the surgery and that there has been no change in the patient's H&P, except as documented below: DARIAN ESPARZA Aug 21, 2017 15:07
--- NOTE | 2017-08-21 15:07 | Pre-Procedure Note/Attestation ---
Pre-Procedure Note/Attestation Complete Prior to Procedure Planned Procedure: left Procedure Narrative: hip orif Indications for Procedure Pre-Operative Diagnosis: left hip fracture Attestation I attest that I discussed the nature of the procedure; its benefits; risks and complications; and alternatives (and the risks and benefits of such alternatives ), prior to the procedure, with the patient (or the patient's legal personal banking representative). I attest that, if there was a reasonable possibility of needing a blood transfusion, the patient (or the patient's legal personal banking representative) was given the [facility] of Health Services standardized written summary, pursuant to the Howard Truro Blood Safety Act ([place] Health and Safety Code # 1645, as amended). I attest that I re-evaluated the patient just prior to the surgery and that there has been no change in the patient's H&P, except as documented below: DARIAN ESPARZA Aug 21, 2017 15:07
--- NOTE | 2017-08-21 15:08 | Operative Note - PDOC ---
Operative Note Operative Note Pre-op Diagnosis: left hip fracture Procedure: left hip orif Post-op Diagnosis: same as pre-op plus Operative Findings: consistent w/pre-op dx studies Anesthesia: regional Specimen: none Complications: none Condition: stable Estimated Blood Loss: minimal Implant(s) used?: Yes DARIAN ESPARZA Aug 21, 2017 15:08
[2017-08-21] MEDS ORDERED: cloNIDine 1000mcg/10ml inj ONE (15:30)
[2017-08-21] MEDS ORDERED: Bupivacaine 0.5% Inj 30 ml vial INJ ONE (15:30)
--- NOTE | 2017-08-21 15:57 | Anethesia Preoperative Eval ---
Anesthesia Pre-op PMH/ROS General Date of Evaluation: Aug 21, 2017 Time of Evaluation: 16:16 Anesthesiologist: Samina ASA Score: ASA 3 - Emergency Mallampati Score Class I : Soft palate, uvula, fauces, pillars visible Class II: Soft palate, uvula, fauces visible Class III: Soft palate, base of uvula visible Class IV: Only hard plate visible Mallampati Classification: Class II Surgeon: Darwin Diagnosis: L Hip FX Surgical Procedure: ORIF L Hip Anesthesia History: none Family History: no anesthesia problems Allergies: Coded Allergies: GABAPENTIN (Verified Allergy, Unknown, 08/20/17) HYDROCHLOROTHIAZIDE (Verified Allergy, Unknown, 08/20/17) PENTAZOCINE (Verified Allergy, Unknown, 08/20/17) Medications: see eMAR Past Medical History Cardiovascular: Reports: HTN Endocrine: Reports: DM Hematology/Immune: Reports: anemia PSxH Narrative: Appendectomy, Bladder SX Anesthesia Pre-op Phys. Exam Physician Exam Last Vital Signs Date Time Temp Pulse Resp B/P (MAP) Pulse Ox O2 Delivery O2 Flow Rate FiO2 08/21/17 11:44 98.5 68 20 122/66 98 Room Air Constitutional: NAD Neurologic: CN 2-12 intact Cardiovascular: RRR Respiratory: CTA Gastrointestinal: S/NT/ND Airway Exam Mallampati Score: Class II MO: limited ROM: limited Teeth: missing, intact Anesthesia Pre-op A/P Labs Hematology Test 08/21/17 05:40 White Blood Count 9.2 K/UL (4.8-10.8) Red Blood Count 2.73 M/UL (4.20-5.40) L Hemoglobin 9.9 G/DL (12.0-16.0) L Hematocrit 29.2 % (37.0-47.0) L Mean Corpuscular Volume 107 FL (80-99) H Mean Corpuscular Hemoglobin 36.2 PG (27.0-31.0) H Mean Corpuscular Hemoglobin Concent 33.9 G/DL (32.0-36.0) Red Cell Distribution Width 11.6 % (11.6-14.8) Platelet Count 271 K/UL (150-450) Mean Platelet Volume 5.8 FL (6.5-10.1) L Neutrophils (%) (Auto) 59.7 % (45.0-75.0) Lymphocytes (%) (Auto) 22.8 % (20.0-45.0) Monocytes (%) (Auto) 16.2 % (1.0-10.0) H Eosinophils (%) (Auto) 0.6 % (0.0-3.0) Basophils (%) (Auto) 0.7 % (0.0-2.0) Coagulation Test 08/21/17 05:40 Prothrombin Time 9.6 SEC (9.30-11.50) Prothromb Time International Ratio 0.9 (0.9-1.1) Chemistry Test 08/21/17 05:40 Sodium Level 139 MMOL/L (136-145) Potassium Level 4.3 MMOL/L (3.5-5.1) Chloride Level 105 MMOL/L (98-107) Carbon Dioxide Level 25 MMOL/L (21-32) Anion Gap 9 mmol/L (5-15) Blood Urea Nitrogen 31 mg/dL (7-18) H Creatinine 1.5 MG/DL (0.55-1.30) H Estimat Glomerular Filtration Rate mL/min (>60) Glucose Level 109 MG/DL (74-106) H Calcium Level 8.8 MG/DL (8.5-10.1) Total Bilirubin 0.3 MG/DL (0.2-1.0) Aspartate Amino Transf (AST/SGOT) 19 U/L (15-37) Alanine Aminotransferase (ALT/SGPT) 26 U/L (12-78) Alkaline Phosphatase 73 U/L (46-116) Total Protein 6.6 G/DL (6.4-8.2) Albumin 3.5 G/DL (3.4-5.0) Globulin 3.1 g/dL Albumin/Globulin Ratio 1.1 (1.0-2.7) Thyroid Stimulating Hormone (TSH) 1.192 uiU/mL (0.360-3.740) Risk Assessment & Plan Assessment: ASA 3E Plan: GA, Spinal, BIS Status Change Before Surgery: No Pre-Antibiotics Dru Grams Ancef IV Given Within 1 Hr of Incision: Yes Time Given: 16:21 Junaid Haas MD Aug 21, 2017 15:57
--- NOTE | 2017-08-21 15:58 | Immediate Post-Op Evaluation ---
Immediate Post-Op Evalulation Immediate Post-Op Evalulation Procedure: ORIF L Hip Date of Evaluation: Aug 21, 2017 Time of Evaluation: 17:59 IV Fluids: 700 LR Blood Products: 0 Estimated Blood Loss: 50 Urinary Output: 0 Blood Pressure Systolic: 121 Blood Pressure Diastolic: 82 Pulse Rate: 85 Respiratory Rate: 16 O2 Sat by Pulse Oximetry: 96 Temperature (Fahrenheit): 99.7 Pain Score (1-10): 1 Nausea: No Vomiting: No Complications 0 Patient Status: awake, reacts, patent, none Hydration Status: adequate Dru Grams Ancef IV Given Within 1 Hr of Incision: Yes Time Given: 16:21 Junaid Haas MD Aug 21, 2017 15:58
--- NOTE | 2017-08-21 15:59 | 48 Hour Post Anesthesia Eval ---
Post Anesthesia Evaluation Procedure: ORIF L Hip Date of Evaluation: Aug 21, 2017 Time of Evaluation: 20:14 Blood Pressure Systolic: 117 0: 72 Pulse Rate: 83 Respiratory Rate: 18 Temperature (Fahrenheit): 99.7 O2 Sat by Pulse Oximetry: 100 Airway: patent Nausea: No Vomiting: No Pain Intensity: 1 Hydration Status: adequate Cardiopulmonary Status: Stable Mental Status/LOC: patient returned to baseline Follow-up Care/Observations: 0 Post-Anesthesia Complications: 0 Follow-up care needed: N/A Junaid Haas MD Aug 21, 2017 15:59
[2017-08-21] MEDS ORDERED: Norco 5mg/325mg tab ORAL PRN (16:00)
[2017-08-21] MEDS ORDERED: NS Irrig 1000ml ONE (16:00)
[2017-08-21] MEDS ORDERED: LR 1000ml ONE (16:00)
[2017-08-21] MEDS ORDERED: fentaNYL 100 mcg/2 mL IV PRN (16:00)
[2017-08-21] MEDS ORDERED: Sterile Water Irrig 1000ml IRRIG ONE (16:00)
[2017-08-21] MEDS ORDERED: DiphenhydrAMINE 50mg/ml Inj IVP PRN (16:00)
[2017-08-21] MEDS ORDERED: Norco 7.5mg/325mg tab ORAL PRN (16:00)
[2017-08-21] MEDS ORDERED: Propofol 200mg/20ml IV ONE (16:00)
[2017-08-21] MEDS ORDERED: Atropine Inj 1mg/10ml Syr IV PRN (16:00)
[2017-08-21] MEDS ORDERED: Ketorolac 60mg Inj IV PRN (16:00)
[2017-08-21] MEDS ORDERED: Hydromorphone 0.5mg/0.5ml inj IVP PRN (16:00)
[2017-08-21] MEDS ORDERED: Midazolam 2mg/2ml Inj IVP PRN (16:00)
[2017-08-21] MEDS ORDERED: oxyCODONE HCL/Acetaminophen 5/325mg ORAL PRN (16:00)
[2017-08-21] MEDS: D5 1/2NS w/KCl 20mEq 1,000 ML IV SCH (16:00)
[2017-08-21] MEDS ORDERED: LORazepam Inj 2mg/ml 1ml IV PRN (16:00)
[2017-08-21] MEDS ORDERED: Lidocaine 1% MPF 10mg/ml 5ml ONE (16:00)
[2017-08-21] MEDS ORDERED: Alfentanil 2ml Inj ONE (16:00)
[2017-08-21] MEDS ORDERED: Metoclopramide 10mg/2ml Inj IVP PRN (16:00)
[2017-08-21] MEDS ORDERED: Midazolam 2mg/2ml Inj ONE (16:00)
[2017-08-21] MEDS ORDERED: Dexamethasone 4mg/ml vial ONE (16:00)
[2017-08-21] MEDS ORDERED: Ketorolac 30mg Inj IV PRN (16:00)
[2017-08-21] MEDS ORDERED: NeoSporin Gu Irrig 1ml Amp IRRIG ONE (16:21)
[2017-08-21] MEDS ORDERED: Bacitracin 50000 Units Vial ONE (16:21)
[2017-08-21] MEDS ORDERED: Bupivacaine 0.25% Inj 30ml INJ ONE (16:28)
[2017-08-21] MEDS ORDERED: LR 1000ml 1,000 ML IVLG SCH (17:30)
--- NOTE | 2017-08-21 18:00 | Consultation ---
DATE OF CONSULTATION: ORTHOPEDIC CONSULTATION HISTORY OF PRESENT ILLNESS: The patient is a pleasant 86-year-old female, who sustained a mechanical fall. She has been complaining of difficulty ambulation and brought to the ER where imaging study showed a left intertrochanteric fracture. Orthopedic consultation was obtained for further care and recommendation. PAST MEDICAL HISTORY: Reviewed from the intake chart. PAST SURGICAL HISTORY: Reviewed from the intake chart. MEDICATIONS: Reviewed from the intake chart. PHYSICAL EXAMINATION: GENERAL: The patient is alert and oriented. She is resting comfortably in the exam bed. VITAL SIGNS: Afebrile. Stable vital signs. IMAGING: Imaging studies show left transverse subtrochanteric-intertrochanteric hip fracture. ASSESSMENT: Left subtrochanteric-intertrochanteric hip fracture. DISCUSSION: At this point, what we are going to do is proceed with open reduction and internal fixation. Risks, limitations, expectations, and complications of the procedure were discussed in detail. We are going to have her get cleared for surgery later on today. She will be made NPO in anticipation of clearance. Alternatives discussed with the patient along with risks of surgery. Omar Granados M.D. DR: Karla JOB#: [id number] CC:
--- NOTE | 2017-08-21 18:45 | Consultation ---
DATE OF CONSULTATION: 08/21/2017 PAIN MANAGEMENT CONSULTATION REFERRING PHYSICIANS: 1. Elliott Alcantara M.D. 2. Jeff Leigh M.D. CONSULTING PHYSICIAN: Kushal Foy M.D. PHYSICIAN FUR STRETCHER: Che Mtz CHIEF COMPLAINT: Left hip pain. HISTORY OF PRESENT ILLNESS: This is an 86-year-old female, who is being seen on the Med/Surg floor of [facility] for initial comprehensive pain management consultation. The patient reports that she has been having left hip pain, which started due to fall walking from bedroom to bathroom, found to have a left hip fracture, awaiting to be scheduled for surgery on the left hip. At this time, receiving morphine 2 to 4 mg IV every 4 hours as needed for [id number] pain with minimal pain relief. Due to this, we were consulted so that the patient would have adequate pain control while here in the hospital. PAST MEDICAL HISTORY: Diabetes mellitus, hypertension, and hypothyroidism. PAST SURGICAL HISTORY: Appendectomy, thyroidectomy, right elbow surgery, abdominal hernia repair, lumbar fusion, right toe surgery. MEDICATIONS: Aspirin, buprenorphine, Bentyl, iron, Levoxyl, metoprolol, nortriptyline, Pravachol, Zantac, and metformin. ALLERGIES: Pollen, Neurontin, hydrochlorothiazide, and pentazocine. SOCIAL HISTORY: Denies smoking tobacco, drinking alcohol, or IV drug abuse. REVIEW OF SYSTEMS: Denies rash, fever, chills, sweating, dizziness, drowsiness, blurred vision, sore throat, or change in weight. No shortness of breath, chest pain, palpitations, or cough. No nausea, vomiting, diarrhea, or blood in the stool or urine. No bowel or bladder incontinence. No dysuria. She is complaining of left hip pain. PHYSICAL EXAMINATION: GENERAL: Alert, awake, and oriented. VITAL SIGNS: Blood pressure 143/66, heart rate 74, oxygen saturation 98%, respiratory rate is 18, and temperature is 99.4 degrees Fahrenheit. Height is 5 feet 4 inches and weight is 110 pounds. HEENT: PERRLA. NECK: Range of motion is full in all directions. No tenderness to paracervical muscles. No adenopathy. LUNGS: Clear. HEART: S1 and S2 regular. ABDOMEN: Benign. BACK: Range of motion is decreased in flexion and extension with a surgical scar noted in the lower lumbar spine. EXTREMITIES: Upper extremity range of motion is full in all directions. Motor is intact. No cyanosis. No clubbing. No edema. Sensory is intact. Reflexes are not obtainable. No adenopathy. Lower extremity range of motion is decreased due to the patient's clinical condition with tenderness to palpation of left hip. Sensory is intact. Reflexes are not obtainable. No adenopathy. ASSESSMENT AND PLAN: This is an 86-year-old female with lumbar degenerative disk disease, lumbar spondylosis, history of lumbar fusion, left hip fracture, and left hip pain. The patient will be discontinued off the morphine 2 mg IV and continued on the 4 mg IV every 4 hours as needed for severe pain. She will be started on [place] 10/325 mg 1 tablet every 6 hours as needed for moderate pain and will be continued on the morphine 4 mg IV every 4 hours as needed for severe pain. Waiting to be seen by orthopedic surgeon to be scheduled for surgery once cleared by the staff pharmacist. The patient was discussed with Dr. Foy and Dr. Foy concurred. We will follow the patient. Thank you very much for the courtesy of this consultation. Kushal Foy M.D. ELY Mtz DR: Bhavesh JOB#: [id number] CC:
--- NOTE | 2017-08-21 18:45 | Consultation ---
DATE OF CONSULTATION: 08/21/2017 PAIN MANAGEMENT CONSULTATION REFERRING PHYSICIANS: 1. Elliott Alcantara M.D. 2. Jeff Leigh M.D. CONSULTING PHYSICIAN: Kushal Foy M.D. PHYSICIAN LOOM FIXER: Che Mtz CHIEF COMPLAINT: Left hip pain. HISTORY OF PRESENT ILLNESS: This is an 86-year-old female, who is being seen on the Med/Surg floor of [facility] for initial comprehensive pain management consultation. The patient reports that she has been having left hip pain, which started due to fall walking from bedroom to bathroom, found to have a left hip fracture, awaiting to be scheduled for surgery on the left hip. At this time, receiving morphine 2 to 4 mg IV every 4 hours as needed for [id number] pain with minimal pain relief. Due to this, we were consulted so that the patient would have adequate pain control while here in the hospital. PAST MEDICAL HISTORY: Diabetes mellitus, hypertension, and hypothyroidism. PAST SURGICAL HISTORY: Appendectomy, thyroidectomy, right elbow surgery, abdominal hernia repair, lumbar fusion, right toe surgery. MEDICATIONS: Aspirin, buprenorphine, Bentyl, iron, Levoxyl, metoprolol, nortriptyline, Pravachol, Zantac, and metformin. ALLERGIES: Pollen, Neurontin, hydrochlorothiazide, and pentazocine. SOCIAL HISTORY: Denies smoking tobacco, drinking alcohol, or IV drug abuse. REVIEW OF SYSTEMS: Denies rash, fever, chills, sweating, dizziness, drowsiness, blurred vision, sore throat, or change in weight. No shortness of breath, chest pain, palpitations, or cough. No nausea, vomiting, diarrhea, or blood in the stool or urine. No bowel or bladder incontinence. No dysuria. She is complaining of left hip pain. PHYSICAL EXAMINATION: GENERAL: Alert, awake, and oriented. VITAL SIGNS: Blood pressure 143/66, heart rate 74, oxygen saturation 98%, respiratory rate is 18, and temperature is 99.4 degrees Fahrenheit. Height is 5 feet 4 inches and weight is 110 pounds. HEENT: PERRLA. NECK: Range of motion is full in all directions. No tenderness to paracervical muscles. No adenopathy. LUNGS: Clear. HEART: S1 and S2 regular. ABDOMEN: Benign. BACK: Range of motion is decreased in flexion and extension with a surgical scar noted in the lower lumbar spine. EXTREMITIES: Upper extremity range of motion is full in all directions. Motor is intact. No cyanosis. No clubbing. No edema. Sensory is intact. Reflexes are not obtainable. No adenopathy. Lower extremity range of motion is decreased due to the patient's clinical condition with tenderness to palpation of left hip. Sensory is intact. Reflexes are not obtainable. No adenopathy. ASSESSMENT AND PLAN: This is an 86-year-old female with lumbar degenerative disk disease, lumbar spondylosis, history of lumbar fusion, left hip fracture, and left hip pain. The patient will be discontinued off the morphine 2 mg IV and continued on the 4 mg IV every 4 hours as needed for severe pain. She will be started on [place] 10/325 mg 1 tablet every 6 hours as needed for moderate pain and will be continued on the morphine 4 mg IV every 4 hours as needed for severe pain. Waiting to be seen by orthopedic surgeon to be scheduled for surgery once cleared by the hospital supervisor. The patient was discussed with Dr. Foy and Dr. Foy concurred. We will follow the patient. Thank you very much for the courtesy of this consultation. Kushal Foy M.D. ELY Mtz DR: Bhavesh JOB#: [id number] CC:
--- NOTE | 2017-08-21 18:45 | Consultation ---
DATE OF CONSULTATION: 08/21/2017 PAIN MANAGEMENT CONSULTATION REFERRING PHYSICIANS: 1. Elliott Alcantara M.D. 2. Jeff Leigh M.D. CONSULTING PHYSICIAN: Kushal Foy M.D. PHYSICIAN TUBE BALANCER: Che Mtz CHIEF COMPLAINT: Left hip pain. HISTORY OF PRESENT ILLNESS: This is an 86-year-old female, who is being seen on the Med/Surg floor of [facility] for initial comprehensive pain management consultation. The patient reports that she has been having left hip pain, which started due to fall walking from bedroom to bathroom, found to have a left hip fracture, awaiting to be scheduled for surgery on the left hip. At this time, receiving morphine 2 to 4 mg IV every 4 hours as needed for [id number] pain with minimal pain relief. Due to this, we were consulted so that the patient would have adequate pain control while here in the hospital. PAST MEDICAL HISTORY: Diabetes mellitus, hypertension, and hypothyroidism. PAST SURGICAL HISTORY: Appendectomy, thyroidectomy, right elbow surgery, abdominal hernia repair, lumbar fusion, right toe surgery. MEDICATIONS: Aspirin, buprenorphine, Bentyl, iron, Levoxyl, metoprolol, nortriptyline, Pravachol, Zantac, and metformin. ALLERGIES: Pollen, Neurontin, hydrochlorothiazide, and pentazocine. SOCIAL HISTORY: Denies smoking tobacco, drinking alcohol, or IV drug abuse. REVIEW OF SYSTEMS: Denies rash, fever, chills, sweating, dizziness, drowsiness, blurred vision, sore throat, or change in weight. No shortness of breath, chest pain, palpitations, or cough. No nausea, vomiting, diarrhea, or blood in the stool or urine. No bowel or bladder incontinence. No dysuria. She is complaining of left hip pain. PHYSICAL EXAMINATION: GENERAL: Alert, awake, and oriented. VITAL SIGNS: Blood pressure 143/66, heart rate 74, oxygen saturation 98%, respiratory rate is 18, and temperature is 99.4 degrees Fahrenheit. Height is 5 feet 4 inches and weight is 110 pounds. HEENT: PERRLA. NECK: Range of motion is full in all directions. No tenderness to paracervical muscles. No adenopathy. LUNGS: Clear. HEART: S1 and S2 regular. ABDOMEN: Benign. BACK: Range of motion is decreased in flexion and extension with a surgical scar noted in the lower lumbar spine. EXTREMITIES: Upper extremity range of motion is full in all directions. Motor is intact. No cyanosis. No clubbing. No edema. Sensory is intact. Reflexes are not obtainable. No adenopathy. Lower extremity range of motion is decreased due to the patient's clinical condition with tenderness to palpation of left hip. Sensory is intact. Reflexes are not obtainable. No adenopathy. ASSESSMENT AND PLAN: This is an 86-year-old female with lumbar degenerative disk disease, lumbar spondylosis, history of lumbar fusion, left hip fracture, and left hip pain. The patient will be discontinued off the morphine 2 mg IV and continued on the 4 mg IV every 4 hours as needed for severe pain. She will be started on [place] 10/325 mg 1 tablet every 6 hours as needed for moderate pain and will be continued on the morphine 4 mg IV every 4 hours as needed for severe pain. Waiting to be seen by orthopedic surgeon to be scheduled for surgery once cleared by the project drilling engineer. The patient was discussed with Dr. Foy and Dr. Foy concurred. We will follow the patient. Thank you very much for the courtesy of this consultation. Kushal Foy M.D. ELY Mtz DR: Bhavesh JOB#: [id number] CC:
--- NOTE | 2017-08-21 19:13 | Internal Med Progress Note ---
Subjective Date of Service: Aug 21, [address] Dickinson Attending Physician Jeff Leigh MD Current Medications Medications (Trade) Dose Ordered Sig/Lesa Route PRN Reason Start Time Stop Time Status Last Admin Dose Admin Acetaminophen (Tylenol) 650 mg Q4H PRN ORAL fever 08/20/17 14:45 09/19/17 14:44 Acetaminophen/ Hydrocodone Bitart ([place] 10/325) 1 ea Q6H PRN ORAL Moderate Pain (Pain Scale 4-6) 08/21/17 10:00 08/28/17 09:59 Acetaminophen/ Hydrocodone Bitart ([place] 5/325) 1 tab Q1H PRN ORAL Mild Pain (Pain Scale 1-3) 08/21/17 16:00 08/21/17 22:00 Acetaminophen/ Hydrocodone Bitart ([place] 7.5/325) 1 ea Q1H PRN ORAL Moderate Pain (Pain Scale 4-6) 08/21/17 16:00 08/21/17 23:00 Al Hydroxide/Mg Hydroxide (Mylanta II) 30 ml Q6H PRN ORAL dyspepsia 08/20/17 14:45 09/19/17 14:44 Al Hydroxide/Mg Hydroxide (Mylanta) 15 ml Q1H PRN ORAL gi upset 08/21/17 16:00 08/21/17 23:00 Atropine Sulfate (Atropine) 0.5 mg Q5M PRN IV HR <40 08/21/17 16:00 08/21/17 23:00 Dextrose (Dextrose 50%) STAT PRN IV Hypoglycemia 08/20/17 19:15 09/19/17 19:14 Dextrose/ Electrolytes 1,000 ml @ 75 mls/hr [id number] IV 08/21/17 16:00 09/20/17 15:59 Dextrose/Sodium Chloride 1,000 ml @ 50 mls/hr Q20H IV 08/20/17 14:40 09/19/17 14:39 08/21/17 10:16 Diphenhydramine HCl (Benadryl) 25 mg Q15M PRN IVP Itching 08/21/17 16:00 08/21/17 23:00 Fentanyl Citrate (Sublimaze 100 mcg/2 mL) 25 mcg Q10M PRN IV Moderate Pain (Pain Scale 4-6) 08/21/17 16:00 08/21/17 22:00 Heparin Sodium (Porcine) (Heparin 5000 units/ml) 5,000 units EVERY 12 HOURS SUBQ 08/20/17 21:00 09/19/17 20:59 08/20/17 20:45 Hydralazine HCl (Apresoline) 5 mg Q30M PRN IV SBP>160 / DBP>90 08/21/17 16:00 08/21/17 23:00 Hydromorphone HCl (Dilaudid) 0.5 mg Q15M PRN IVP Severe Pain (Pain Scale 7-10) 08/21/17 16:00 08/21/17 22:00 Insulin Aspart (NovoLOG) BEFORE MEALS AND HS SUBQ 08/20/17 21:00 09/19/17 20:59 08/21/17 06:02 Ketorolac Tromethamine (Toradol 30mg) 15 mg Q1H PRN IV Moderate Breakthru Pain (5-7) 08/21/17 16:00 08/21/17 23:00 Ketorolac Tromethamine (Toradol) 60 mg Q1H PRN IV Severe Breakthru Pain (>7) 08/21/17 16:00 08/21/17 23:00 Lactated Ringer's 1,000 ml @ 10 mls/hr Q24H IVLG 08/21/17 17:30 08/21/17 23:00 Levothyroxine Sodium (Synthroid) 75 mcg DAILY ORAL 08/21/17 09:00 09/20/17 08:59 Lorazepam (Ativan 2mg/ml 1ml) 0.5 mg Q4H PRN IV For Anxiety 08/20/17 14:45 08/27/17 14:44 08/20/17 23:10 Lorazepam (Ativan 2mg/ml 1ml) 1 mg Q15M PRN IV For Anxiety 08/21/17 16:00 08/21/17 23:00 Memantine (Namenda) 10 mg TWICE A DAY ORAL 08/20/17 18:00 09/19/17 17:59 08/20/17 20:09 Metoclopramide HCl (Reglan) 10 mg Q1H PRN IVP Nausea & Vomiting 08/21/17 16:00 08/21/17 23:00 Metoprolol Succinate (Toprol XL) 25 mg DAILY ORAL 08/21/17 09:00 09/20/17 08:59 08/21/17 09:41 Midazolam HCl (Versed 2mg/2ml vial) 1 mg Q15M PRN IVP For Anxiety 08/21/17 16:00 08/21/17 23:00 Morphine Sulfate (Morphine Sulfate) 4 mg Q4H PRN IVP For Pain 7-10 08/21/17 09:45 08/28/17 13:44 Nortriptyline HCl (Pamelor) 75 mg DAILY ORAL 08/21/17 09:00 09/20/17 08:59 Ondansetron HCl (Zofran) 4 mg Q1H PRN IVP Nausea & Vomiting 08/21/17 16:00 08/21/17 23:00 Ondansetron HCl (Zofran) 4 mg Q6H PRN IVP Nausea & Vomiting 08/20/17 14:45 09/19/17 14:44 Oxycodone/ Acetaminophen (Percocet 5-325) 1 tab Q1H PRN ORAL Severe Pain (Pain Scale 7-10) 08/21/17 16:00 08/21/17 23:00 Polyethylene Glycol (Miralax) 17 gm HSPRN PRN ORAL Constipation 08/20/17 14:45 09/19/17 14:44 Pravastatin Sodium (Pravachol) 40 mg BEDTIME ORAL 08/20/17 21:00 09/19/17 20:59 08/20/17 20:42 Ranitidine HCl (Zantac) 150 mg DAILY ORAL 08/21/17 09:00 09/20/17 08:59 Zolpidem Tartrate (Ambien) 5 mg HSPRN PRN ORAL Insomnia 08/20/17 14:45 08/27/17 14:44 Allergies: Coded Allergies: GABAPENTIN (Verified Allergy, Unknown, 08/20/17) HYDROCHLOROTHIAZIDE (Verified Allergy, Unknown, 08/20/17) PENTAZOCINE (Verified Allergy, Unknown, 08/20/17) ROS Limited/Unobtainable: No Constitutional: Reports: no symptoms Cardiovascular: Reports: no symptoms Respiratory: Reports: no symptoms Gastrointestinal/Abdominal: Reports: no symptoms Genitourinary: Reports: no symptoms Neurologic/Psychiatric: Reports: no symptoms Subjective 86 YO F admitted with displaced left intertrochanteric femur fracture. S/P ORIF 10/27/17. Cover for Int Britta Leigh Objective Last Vital Signs Date Time Temp Pulse Resp B/P (MAP) Pulse Ox O2 Delivery O2 Flow Rate FiO2 08/21/17 18:45 70 18 90/56 100 Nasal Cannula 2.0 70 08/21/17 17:48 99.7 General Appearance: WD/WN, no apparent distress, alert EENT: PERRL/EOMI, normal ENT inspection Neck: non-tender, normal alignment, supple, normal inspection Cardiovascular: normal peripheral pulses, normal rate, regular rhythm, no gallop/murmur, no JVD Respiratory/Chest: chest wall non-tender, lungs clear, normal breath sounds, no respiratory distress, no accessory muscle use Abdomen: normal bowel sounds, non tender, soft, no organomegaly, no mass Extremities: normal range of motion Edema: trace edema Neurologic: national coverage specialist II-XII grossly normal, no motor/sensory deficits Skin: normal pigmentation, warm/dry Laboratory Tests Test 08/21/17 05:40 White Blood Count 9.2 K/UL (4.8-10.8) Red Blood Count 2.73 M/UL (4.20-5.40) L Hemoglobin 9.9 G/DL (12.0-16.0) L Hematocrit 29.2 % (37.0-47.0) L Mean Corpuscular Volume 107 FL (80-99) H Mean Corpuscular Hemoglobin 36.2 PG (27.0-31.0) H Mean Corpuscular Hemoglobin Concent 33.9 G/DL (32.0-36.0) Red Cell Distribution Width 11.6 % (11.6-14.8) Platelet Count 271 K/UL (150-450) Mean Platelet Volume 5.8 FL (6.5-10.1) L Neutrophils (%) (Auto) 59.7 % (45.0-75.0) Lymphocytes (%) (Auto) 22.8 % (20.0-45.0) Monocytes (%) (Auto) 16.2 % (1.0-10.0) H Eosinophils (%) (Auto) 0.6 % (0.0-3.0) Basophils (%) (Auto) 0.7 % (0.0-2.0) Prothrombin Time 9.6 SEC (9.30-11.50) Prothromb Time International Ratio 0.9 (0.9-1.1) Sodium Level 139 MMOL/L (136-145) Potassium Level 4.3 MMOL/L (3.5-5.1) Chloride Level 105 MMOL/L (98-107) Carbon Dioxide Level 25 MMOL/L (21-32) Anion Gap 9 mmol/L (5-15) Blood Urea Nitrogen 31 mg/dL (7-18) H Creatinine 1.5 MG/DL (0.55-1.30) H Estimat Glomerular Filtration Rate mL/min (>60) Glucose Level 109 MG/DL (74-106) H Calcium Level 8.8 MG/DL (8.5-10.1) Total Bilirubin 0.3 MG/DL (0.2-1.0) Aspartate Amino Transf (AST/SGOT) 19 U/L (15-37) Alanine Aminotransferase (ALT/SGPT) 26 U/L (12-78) Alkaline Phosphatase 73 U/L (46-116) Total Protein 6.6 G/DL (6.4-8.2) Albumin 3.5 G/DL (3.4-5.0) Globulin 3.1 g/dL Albumin/Globulin Ratio 1.1 (1.0-2.7) Thyroid Stimulating Hormone (TSH) 1.192 uiU/mL (0.360-3.740) Intake and Output 08/21/17 08/22/17 19:00 07:00 Intake Total 700 ml Output Total 50 ml Balance 650 ml IV Total 700 ml Estimated Blood Loss 50 ml # Voids 2 Assessment/Plan Problem List: (1) Dementia (2) Fracture, intertrochanteric, left femur Assessment & Plan: S/P ORIF 08/21/17 (3) HTN (hypertension) Assessment & Plan: Continue hydralazine (4) Hypothyroidism (5) Diabetes Assessment & Plan: cont novolog sliding scale Status: not improved Assessment/Plan Acute rehab vs SNF AVE DICKINSON Aug 21, 2017 19:13
--- NOTE | 2017-08-21 21:15 | Consultation ---
DATE OF CONSULTATION: 08/21/2017 CARDIOLOGY CONSULTATION CONSULTING PHYSICIAN: Estuardo Michel M.D. REFERRING PHYSICIAN: Jeff Leigh M.D. REASON FOR CONSULTATION: Preoperative clearance prior to hip surgery. HISTORY OF PRESENT ILLNESS: The patient is a very pleasant 86-year-old lady, who was walking from bedroom to the bathroom had a slip and fall that resulted in severe left hip pain. The patient came to the emergency room and CT and x-ray revealed displaced left intertrochanteric femoral neck fracture. The patient was admitted and a Cardiology consultation was obtained for further evaluation. PAST MEDICAL HISTORY: 1. Hypertension. 2. Diabetes. 3. Hypothyroidism. The patient denies prior myocardial infarction or congestive heart failure or known coronary artery disease. PAST SURGICAL HISTORY: 1. Thyroidectomy. 2. Appendectomy. 3. Right elbow open reduction and internal fixation. 4. Abdominal hernia repair. MEDICATIONS: Per reconciliation. ALLERGIES: She is allergic to pollen, hydrochlorothiazide, and pentazocine. SOCIAL HISTORY: She is , lives with her . Does not smoke or drink alcohol. REVIEW OF SYSTEMS: Review of systems was thoroughly performed and was negative other than what was mentioned in the history of present illness. PHYSICAL EXAMINATION: VITAL SIGNS: Blood pressure is 122/66, pulse 60, respirations 20, and temperature 98.5 degrees. HEAD AND NECK: No JVD or carotid bruits. LUNGS: Clear. CARDIOVASCULAR: Regular S1 and S2 with no gallop or murmur. ABDOMEN: Soft. EXTREMITIES: There is external rotation of the left hip. LABORATORY AND DIAGNOSTIC DATA: Her labs show white count of 9.2, hemoglobin of 10, hematocrit 29.2, and platelet count of 271. Sodium 139, potassium 4.2, BUN of 31, creatinine 1.5, and glucose of 109. Troponin is negative. Her echocardiogram showed normal left ventricular systolic function with ejection fraction of 70% to 75%. Aortic valve area 1.5 cm2. Her EKG showed normal sinus rhythm with no acute ST-T wave abnormality. ASSESSMENT AND PLAN: 1. Hypertension. Blood pressure is currently stable on Toprol-XL 25 mg daily that would be continued. 2. Status post fall with a hip fracture. The patient has normal left ventricular systolic function. Has mild aortic stenosis. Denies any prior myocardial infarction or congestive heart failure. The patient is laying flat in bed reading newspapers. The patient is okay to proceed with the above-mentioned surgery at moderate risk in view of her age. 3. Hypothyroidism, on Synthroid. 4. Diabetes, on insulin. Thank you very much, Dr. Leigh, for allowing me to participate in the care of this patient. Please do not hesitate to contact me for any questions regarding my evaluation. Estuardo Michel M.D. DR: DAYTON JOB#: [id number] CC:
[2017-08-21] MEDS: Morphine Sulfate 4mg/ml Inj IVP PRN (23:34)
[2017-08-22] VITALS: BP 134/69
--- NOTE | 2017-08-22 03:15 | Operative Note - Dictated ---
DATE OF OPERATION: 08/21/2017 PREOPERATIVE DIAGNOSIS: Left subtrochanteric-intertrochanteric hip fracture. POSTOPERATIVE DIAGNOSIS: Left subtrochanteric-intertrochanteric hip fracture. PROCEDURE: Open reduction and internal fixation of left intertrochanteric-subtrochanteric femur fracture with intramedullary device. SURGEON: Omar Granados M.D. ANESTHESIA: General. INDICATION FOR PROCEDURE: The patient is a pleasant female, who sustained a mechanical fall. She was diagnosed with left subtrochanteric-intertrochanteric hip fracture indicating operative fixation. Risks, limitations, expectations, and complications of the procedure were discussed in detail including continued pain, need for surgery, risk of anesthesia, medical complications, DVT, PE, and mortality risks. All questions were addressed. DESCRIPTION OF PROCEDURE: Informed consent was obtained. The patient was brought to the operating room and placed supine under general anesthesia. The patient was then carefully placed on the fracture table. Reduction under fluoroscopic imaging was then performed. Left hip was prepped and draped in a sterile manner. Ancef was administered. A standard lateral skin incision was then made. Guidewire was put in the proximal aspect of the femur. A 38 x 10 mm long gamma nail was selected after canal was reamed. Through a second stab incision, an 85 mm cannulated screw was placed in the neck head junction. Using a targeting device, two additional locking screws were then placed. Once that was done, the targeting device was removed. The wound was copiously irrigated. Hemostasis using electrocautery. The incision was closed with #1 Vicryl suture, 2-0 Vicryl suture, and 3-0 Monocryl sutures. Steri-Strips and a sterile dressing were applied. The patient was awoken and taken to recovery room with stable vital signs. ESTIMATED BLOOD LOSS: 20 mL. COMPLICATIONS: None. SPECIMENS: None. NAME OF THE IMPLANTS: Include Jc long gamma nail 80 mm cannulated screw and two distal locking screws. Omar Granados M.D. DR: Karla JOB#: [id number] CC:
[2017-08-22] MEDS: Morphine Sulfate 4mg/ml Inj IVP PRN ×2 (03:39→08:16)
[2017-08-22 04:00] VITALS: BP 124/74
[2017-08-22] MEDS: D5 1/2NS w/KCl 20mEq 1,000 ML IV SCH (05:17)
[2017-08-22] MEDS: NovoLOG Insulin Flexpen SUBQ SCH ×4 (06:46→21:02)
[2017-08-22] MEDS: Memantine 10mg tab ORAL SCH ×2 (08:19→17:14)
[2017-08-22] MEDS: Metoprolol Succinate XL 25mg tab ORAL SCH (08:22)
[2017-08-22] MEDS: Nortriptyline 25mg cap ORAL SCH (08:23)
[2017-08-22] MEDS: Heparin 5000 units/ml inj SUBQ SCH ×2 (08:25→21:03)
[2017-08-22 08:26] VITALS: BP 131/65
--- NOTE | 2017-08-22 08:37 | Diagnostic Imaging Report ---
Indication: Pain, status post fall Technique: Digital intraoperative images Comparison: 08/20/2017 Findings: Intraoperative images document repair of previously demonstrated intertrochanteric fracture with compression screw and medullary kimmy. Impression: Intraoperative imaging, as described
[2017-08-22 09:03] LABS: BASOPHILS % (AUTO) 0.5 % (0.0-2.0); HEMATOCRIT 23.3 % (37.0-47.0); HEMOGLOBIN 8.1 G/DL (12.0-16.0); LYMPHOCYTES % (AUTO) 14.3 % (20.0-45.0); MEAN CORPUSCULAR VOLUME 108 FL (80-99); MONOCYTES % (AUTO) 15.4 % (1.0-10.0); NEUTROPHILS % (AUTO) 69.8 % (45.0-75.0); PLATELET COUNT 197 K/UL (150-450); RED BLOOD COUNT 2.17 M/UL (4.20-5.40); RED CELL DISTRIBUTION WIDTH 11.3 % (11.6-14.8); WHITE BLOOD COUNT 10.7 K/UL (4.8-10.8)
[2017-08-22 09:42] LABS: ANION GAP 11 mmol/L (5-15); BLOOD UREA NITROGEN 30 mg/dL (7-18); CALCIUM 8.4 MG/DL (8.5-10.1); CARBON DIOXIDE 24 MMOL/L (21-32); CHLORIDE 105 MMOL/L (98-107); CREATININE 1.4 MG/DL (0.55-1.30); FERRITIN 117 NG/ML (8-388); POTASSIUM 4.1 MMOL/L (3.5-5.1); SODIUM 140 MMOL/L (136-145)
[2017-08-22 10:52] LABS: % IRON SATURATION 9 % (15-50); IRON 17 ug/dL (50-175); TOTAL IRON BINDING CAPACITY 184 ug/dL (250-450)
--- NOTE | 2017-08-22 11:02 | Pulmonology Progress Note ---
Assessment/Plan Problems: (1) Anemia (2) ATN (acute tubular necrosis) (3) Diabetes (4) Fracture, intertrochanteric, left femur (5) Dementia (6) HTN (hypertension) (7) Hypothyroidism Assessment/Plan increase morphine to 6 mg IV q 3 hours pt/ot anemia w/u dc IV fluids check renal parameters dvt prophylaxis Subjective ROS Limited/Unobtainable: No Interval Events: still c/o pain in hip Allergies: Coded Allergies: GABAPENTIN (Verified Allergy, Unknown, 08/20/17) HYDROCHLOROTHIAZIDE (Verified Allergy, Unknown, 08/20/17) PENTAZOCINE (Verified Allergy, Unknown, 08/20/17) Objective Last 24 Hour Vital Signs Date Time Temp Pulse Resp B/P (MAP) Pulse Ox O2 Delivery O2 Flow Rate FiO2 08/22/17 08:26 99.2 91 18 131/65 100 Nasal Cannula 2.0 08/22/17 08:22 91 131/65 08/22/17 04:00 99.5 88 18 124/74 100 Nasal Cannula 2.0 08/22/17 01:36 85 18 100 Room Air 21 08/22/17 01:34 84 18 100 Room Air 21 08/22/17 00:00 98.3 88 19 134/69 100 Nasal Cannula 2.0 08/21/17 21:05 98.3 80 18 136/61 100 Nasal Cannula 2.0 08/21/17 20:05 97.4 80 18 135/57 98 Nasal Cannula 2.0 08/21/17 19:45 98.0 73 17 103/49 100 Nasal Cannula 2.0 08/21/17 19:30 71 16 105/53 100 Nasal Cannula 2.0 08/21/17 19:15 72 16 104/52 100 Nasal Cannula 2.0 08/21/17 19:00 73 17 108/49 100 Nasal Cannula 2.0 08/21/17 18:45 70 18 90/56 100 Nasal Cannula 2.0 70 08/21/17 18:30 70 18 117/56 100 Nasal Cannula 3.0 08/21/17 18:18 78 19 90/50 100 Nasal Cannula 2.0 08/21/17 18:08 77 18 92/45 100 Nasal Cannula 2.0 08/21/17 17:58 76 19 105/52 100 Simple Mask 6.0 10/27/17 17:54 83 18 100 08/21/17 17:53 75 18 88/49 99 Simple Mask 6.0 08/21/17 17:52 85 16 96 08/21/17 17:48 99.7 78 18 101/64 99 Simple Mask 6.0 08/21/17 11:44 98.5 68 20 122/66 98 Room Air General Appearance: cachetic HEENT: normocephalic, atraumatic Respiratory/Chest: chest wall non-tender, lungs clear Breasts: no masses Cardiovascular: normal peripheral pulses Abdomen: normal bowel sounds, soft, non tender Genitourinary: normal external genitalia Extremities: no clubbing Neurologic/Psychiatric: no motor/sensory deficits Laboratory Tests 08/22/17 06:40: White Blood Count 10.7, Red Blood Count 2.17L, Hemoglobin 8.1L, Hematocrit 23.3L , Mean Corpuscular Volume 108H, Mean Corpuscular Hemoglobin 37.5H, Mean Corpuscular Hemoglobin Concent 34.9, Red Cell Distribution Width 11.3L, Platelet Count 197, Mean Platelet Volume 6.1L, Neutrophils (%) (Auto) 69.8, Lymphocytes (%) (Auto) 14.3L, Monocytes (%) (Auto) 15.4H, Eosinophils (%) (Auto ) 0.0, Basophils (%) (Auto) 0.5, Sodium Level 140, Potassium Level 4.1, Chloride Level 105, Carbon Dioxide Level 24, Anion Gap 11, Blood Urea Nitrogen 30H, Creatinine 1.4H, Estimat Glomerular Filtration Rate , Glucose Level 152H, Calcium Level 8.4L, Iron Level 17L, Total Iron Binding Capacity 184L, Percent Iron Saturation 9L, Unsaturated Iron Binding 167, Ferritin 117, Vitamin B12 Level 691, RBC Folate Hemolysate [Pending], Red Blood Cell Folate [Pending] Current Medications Medications (Trade) Dose Ordered Sig/Lesa Route PRN Reason Start Time Stop Time Status Last Admin Dose Admin Acetaminophen (Tylenol) 650 mg Q4H PRN ORAL fever 08/20/17 14:45 09/19/17 14:44 Acetaminophen/ Hydrocodone Bitart ([place] 10/325) 1 ea Q6H PRN ORAL Moderate Pain (Pain Scale 4-6) 08/21/17 10:00 08/28/17 09:59 08/21/17 21:48 Al Hydroxide/Mg Hydroxide (Mylanta II) 30 ml Q6H PRN ORAL dyspepsia 08/20/17 14:45 09/19/17 14:44 Dextrose (Dextrose 50%) STAT PRN IV Hypoglycemia 08/20/17 19:15 09/19/17 19:14 Dextrose/ Electrolytes 1,000 ml @ 75 mls/hr [id number] IV 08/21/17 16:00 09/20/17 15:59 08/22/17 05:17 Heparin Sodium (Porcine) (Heparin 5000 units/ml) 5,000 units EVERY 12 HOURS SUBQ 08/20/17 21:00 09/19/17 20:59 08/22/17 08:25 Insulin Aspart (NovoLOG) BEFORE MEALS AND HS SUBQ 08/20/17 21:00 09/19/17 20:59 08/22/17 06:46 Levothyroxine Sodium (Synthroid) 75 mcg DAILY ORAL 08/21/17 09:00 09/20/17 08:59 08/22/17 08:19 Lorazepam (Ativan 2mg/ml 1ml) 0.5 mg Q4H PRN IV For Anxiety 08/20/17 14:45 08/27/17 14:44 08/20/17 23:10 Memantine (Namenda) 10 mg TWICE A DAY ORAL 08/20/17 18:00 09/19/17 17:59 08/22/17 08:19 Metoprolol Succinate (Toprol XL) 25 mg DAILY ORAL 08/21/17 09:00 09/20/17 08:59 08/22/17 08:22 Morphine Sulfate (Morphine Sulfate) 6 mg EVERY 3 HOURS PRN IVP For Pain 7-10 08/22/17 11:00 08/28/17 13:44 UNV Nortriptyline HCl (Pamelor) 75 mg DAILY ORAL 08/21/17 09:00 09/20/17 08:59 08/22/17 08:23 Ondansetron HCl (Zofran) 4 mg Q6H PRN IVP Nausea & Vomiting 08/20/17 14:45 09/19/17 14:44 Polyethylene Glycol (Miralax) 17 gm HSPRN PRN ORAL Constipation 08/20/17 14:45 09/19/17 14:44 Pravastatin Sodium (Pravachol) 40 mg BEDTIME ORAL 08/20/17 21:00 09/19/17 20:59 08/21/17 21:46 Ranitidine HCl (Zantac) 150 mg DAILY ORAL 08/21/17 09:00 09/20/17 08:59 08/22/17 08:20 Zolpidem Tartrate (Ambien) 5 mg HSPRN PRN ORAL Insomnia 08/20/17 14:45 08/27/17 14:44 LIN TATE Aug 22, 2017 11:02
[2017-08-22] MEDS: Morphine Sulfate 10mg/ml Inj IVP PRN ×3 (11:21→21:07)
[2017-08-22 11:45] LABS: CREATINE KINASE 391 U/L (26-308)
[2017-08-22 12:29] VITALS: BP 119/67
--- NOTE | 2017-08-22 13:27 | Internal Med Progress Note ---
Subjective Date of Service: Aug 22, 2017 Physician Name AlcantaraElliott hall Attending Physician Jeff Leigh MD Current Medications Medications (Trade) Dose Ordered Sig/Lesa Route PRN Reason Start Time Stop Time Status Last Admin Dose Admin Acetaminophen (Tylenol) 650 mg Q4H PRN ORAL fever 08/20/17 14:45 09/19/17 14:44 Acetaminophen/ Hydrocodone Bitart ([place] 10/325) 1 ea Q6H PRN ORAL Moderate Pain (Pain Scale 4-6) 08/21/17 10:00 08/28/17 09:59 08/21/17 21:48 Al Hydroxide/Mg Hydroxide (Mylanta II) 30 ml Q6H PRN ORAL dyspepsia 08/20/17 14:45 09/19/17 14:44 Dextrose (Dextrose 50%) STAT PRN IV Hypoglycemia 08/20/17 19:15 09/19/17 19:14 Heparin Sodium (Porcine) (Heparin 5000 units/ml) 5,000 units EVERY 12 HOURS SUBQ 08/20/17 21:00 09/19/17 20:59 08/22/17 08:25 Insulin Aspart (NovoLOG) BEFORE MEALS AND HS SUBQ 08/20/17 21:00 09/19/17 20:59 08/22/17 12:41 Levothyroxine Sodium (Synthroid) 75 mcg DAILY ORAL 08/21/17 09:00 09/20/17 08:59 08/22/17 08:19 Lorazepam (Ativan 2mg/ml 1ml) 0.5 mg Q4H PRN IV For Anxiety 08/20/17 14:45 08/27/17 14:44 08/20/17 23:10 Memantine (Namenda) 10 mg TWICE A DAY ORAL 08/20/17 18:00 09/19/17 17:59 08/22/17 08:19 Metoprolol Succinate (Toprol XL) 25 mg DAILY ORAL 08/21/17 09:00 09/20/17 08:59 08/22/17 08:22 Morphine Sulfate (Morphine Sulfate) 6 mg Q3H PRN IVP Severe Pain (Pain Scale 7-10) 08/22/17 11:00 08/29/17 10:59 08/22/17 11:21 Nortriptyline HCl (Pamelor) 75 mg DAILY ORAL 08/21/17 09:00 09/20/17 08:59 08/22/17 08:23 Ondansetron HCl (Zofran) 4 mg Q6H PRN IVP Nausea & Vomiting 08/20/17 14:45 09/19/17 14:44 Polyethylene Glycol (Miralax) 17 gm HSPRN PRN ORAL Constipation 08/20/17 14:45 09/19/17 14:44 Pravastatin Sodium (Pravachol) 40 mg BEDTIME ORAL 08/20/17 21:00 09/19/17 20:59 08/21/17 21:46 Ranitidine HCl (Zantac) 150 mg DAILY ORAL 08/21/17 09:00 09/20/17 08:59 08/22/17 08:20 Zolpidem Tartrate (Ambien) 5 mg HSPRN PRN ORAL Insomnia 08/20/17 14:45 08/27/17 14:44 Allergies: Coded Allergies: GABAPENTIN (Verified Allergy, Unknown, 08/20/17) HYDROCHLOROTHIAZIDE (Verified Allergy, Unknown, 08/20/17) PENTAZOCINE (Verified Allergy, Unknown, 08/20/17) ROS Limited/Unobtainable: No Subjective 86 YO F admitted with displaced left intertrochanteric femur fracture. S/P ORIF Thu08/21/17. Cover for Int Med-Dr Leigh Objective Last Vital Signs Date Time Temp Pulse Resp B/P (MAP) Pulse Ox O2 Delivery O2 Flow Rate FiO2 08/22/17 12:29 98.3 94 18 119/67 100 Room Air 08/22/17 08:26 2.0 08/22/17 01:36 21 Laboratory Tests Test 08/22/17 06:40 08/22/17 08:50 White Blood Count 10.7 K/UL (4.8-10.8) Red Blood Count 2.17 M/UL (4.20-5.40) L Hemoglobin 8.1 G/DL (12.0-16.0) L Hematocrit 23.3 % (37.0-47.0) L Mean Corpuscular Volume 108 FL (80-99) H Mean Corpuscular Hemoglobin 37.5 PG (27.0-31.0) H Mean Corpuscular Hemoglobin Concent 34.9 G/DL (32.0-36.0) Red Cell Distribution Width 11.3 % (11.6-14.8) L Platelet Count 197 K/UL (150-450) Mean Platelet Volume 6.1 FL (6.5-10.1) L Neutrophils (%) (Auto) 69.8 % (45.0-75.0) Lymphocytes (%) (Auto) 14.3 % (20.0-45.0) L Monocytes (%) (Auto) 15.4 % (1.0-10.0) H Eosinophils (%) (Auto) 0.0 % (0.0-3.0) Basophils (%) (Auto) 0.5 % (0.0-2.0) Sodium Level 140 MMOL/L (136-145) Potassium Level 4.1 MMOL/L (3.5-5.1) Chloride Level 105 MMOL/L (98-107) Carbon Dioxide Level 24 MMOL/L (21-32) Anion Gap 11 mmol/L (5-15) Blood Urea Nitrogen 30 mg/dL (7-18) H Creatinine 1.4 MG/DL (0.55-1.30) H Estimat Glomerular Filtration Rate mL/min (>60) Glucose Level 152 MG/DL (74-106) H Calcium Level 8.4 MG/DL (8.5-10.1) L Iron Level 17 ug/dL (50-175) L Total Iron Binding Capacity 184 ug/dL (250-450) L Percent Iron Saturation 9 % (15-50) L Unsaturated Iron Binding 167 ug/dL (112-346) Ferritin 117 NG/ML (8-388) Vitamin B12 Level 691 PG/ML (193-986) RBC Folate Hemolysate Pending Red Blood Cell Folate Pending Uric Acid 5.6 MG/DL (2.6-7.2) Total Creatine Kinase 391 U/L (26-308) H Objective General Appearance: WD/WN, no apparent distress, alert EENT: PERRL/EOMI, normal ENT inspection Neck: non-tender, normal alignment, supple, normal inspection Cardiovascular: normal peripheral pulses, normal rate, regular rhythm, no gallop/murmur, no JVD Respiratory/Chest: chest wall non-tender, lungs clear, normal breath sounds, no respiratory distress, no accessory muscle use Abdomen: normal bowel sounds, non tender, soft, no organomegaly, no mass Extremities: normal range of motion Edema: trace edema 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
--- NOTE | 2017-08-22 14:38 | Cardiac Electrophysiology PN ---
Assessment/Plan Assessment/Plan 1. Hypertension. On Toprol-XL 25 mg daily 2. Status post fall with a Left hip fracture.S/P ORIF yesterday. The patient has normal left ventricular systolic function. Denies any prior myocardial infarction or congestive heart failure. 3. Hypothyroidism, on Synthroid. 4. Diabetes, on insulin. Subjective Subjective Tolerated the surgery well. No chest pain or SOB. Objective Last 24 Hour Vital Signs Date Time Temp Pulse Resp B/P (MAP) Pulse Ox O2 Delivery O2 Flow Rate FiO2 08/22/17 12:29 98.3 94 18 119/67 100 Room Air 08/22/17 08:26 99.2 91 18 131/65 100 Nasal Cannula 2.0 08/22/17 08:22 91 131/65 08/22/17 04:00 99.5 88 18 124/74 100 Nasal Cannula 2.0 08/22/17 01:36 85 18 100 Room Air 21 08/22/17 01:34 84 18 100 Room Air 21 08/22/17 00:00 98.3 88 19 134/69 100 Nasal Cannula 2.0 08/21/17 21:05 98.3 80 18 136/61 100 Nasal Cannula 2.0 08/21/17 20:05 97.4 80 18 135/57 98 Nasal Cannula 2.0 08/21/17 19:45 98.0 73 17 103/49 100 Nasal Cannula 2.0 08/21/17 19:30 71 16 105/53 100 Nasal Cannula 2.0 08/21/17 19:15 72 16 104/52 100 Nasal Cannula 2.0 08/21/17 19:00 73 17 108/49 100 Nasal Cannula 2.0 08/21/17 18:45 70 18 90/56 100 Nasal Cannula 2.0 70 08/21/17 18:30 70 18 117/56 100 Nasal Cannula 3.0 08/21/17 18:18 78 19 90/50 100 Nasal Cannula 2.0 08/21/17 18:08 77 18 92/45 100 Nasal Cannula 2.0 08/21/17 17:58 76 19 105/52 100 Simple Mask 6.0 08/21/17 17:54 83 18 100 08/21/17 17:53 75 18 88/49 99 Simple Mask 6.0 08/21/17 17:52 85 16 96 08/21/17 17:48 99.7 78 18 101/64 99 Simple Mask 6.0 Laboratory Tests Test 08/22/17 06:40 08/22/17 08:50 White Blood Count 10.7 K/UL (4.8-10.8) Red Blood Count 2.17 M/UL (4.20-5.40) L Hemoglobin 8.1 G/DL (12.0-16.0) L Hematocrit 23.3 % (37.0-47.0) L Mean Corpuscular Volume 108 FL (80-99) H Mean Corpuscular Hemoglobin 37.5 PG (27.0-31.0) H Mean Corpuscular Hemoglobin Concent 34.9 G/DL (32.0-36.0) Red Cell Distribution Width 11.3 % (11.6-14.8) L Platelet Count 197 K/UL (150-450) Mean Platelet Volume 6.1 FL (6.5-10.1) L Neutrophils (%) (Auto) 69.8 % (45.0-75.0) Lymphocytes (%) (Auto) 14.3 % (20.0-45.0) L Monocytes (%) (Auto) 15.4 % (1.0-10.0) H Eosinophils (%) (Auto) 0.0 % (0.0-3.0) Basophils (%) (Auto) 0.5 % (0.0-2.0) Sodium Level 140 MMOL/L (136-145) Potassium Level 4.1 MMOL/L (3.5-5.1) Chloride Level 105 MMOL/L (98-107) Carbon Dioxide Level 24 MMOL/L (21-32) Anion Gap 11 mmol/L (5-15) Blood Urea Nitrogen 30 mg/dL (7-18) H Creatinine 1.4 MG/DL (0.55-1.30) H Estimat Glomerular Filtration Rate mL/min (>60) Glucose Level 152 MG/DL (74-106) H Calcium Level 8.4 MG/DL (8.5-10.1) L Iron Level 17 ug/dL (50-175) L Total Iron Binding Capacity 184 ug/dL (250-450) L Percent Iron Saturation 9 % (15-50) L Unsaturated Iron Binding 167 ug/dL (112-346) Ferritin 117 NG/ML (8-388) Vitamin B12 Level 691 PG/ML (193-986) RBC Folate Hemolysate Pending Red Blood Cell Folate Pending Uric Acid 5.6 MG/DL (2.6-7.2) Total Creatine Kinase 391 U/L (26-308) H Objective HEAD AND NECK: No JVD or carotid bruits. LUNGS: Clear. CARDIOVASCULAR: Regular S1 and S2 with no gallop or murmur. ABDOMEN: Soft. EXTREMITIES: S/P Left hip ORIF VIVIAN MCCONNELL Aug 22, 2017 14:38
[2017-08-22 16:36] VITALS: BP 132/53
[2017-08-22 20:11] VITALS: BP 127/64
[2017-08-22] MEDS: LORazepam Inj 2mg/ml 1ml IV PRN (23:43)
[2017-08-23] VITALS (8 sets, daily range): BP systolic 99–124; BP diastolic 42–69
[2017-08-23 01:18] LABS: APPEARANCE,URINE CLEAR; BILIRUBIN, URINE NEGATIVE (NEGATIVE); COLOR,URINE PALE YELLOW; GLUCOSE, URINE (UA) NEGATIVE (NEGATIVE); KETONES,URINE NEGATIVE (NEGATIVE); LEUKOCYTE ESTERASE ,URINE 2+ (NEGATIVE); NITRITE,URINE NEGATIVE (NEGATIVE); PH,URINE 5 (4.5-8.0); PROTEIN,URINE 1+ (NEGATIVE); UROBILINOGEN,URINE NORMAL MG/DL (0.0-1.0)
[2017-08-23] MEDS: Morphine Sulfate 10mg/ml Inj IVP PRN ×3 (03:41→22:00)
[2017-08-23] MEDS: NovoLOG Insulin Flexpen SUBQ SCH ×4 (05:54→21:42)
[2017-08-23 08:28] LABS: HEMATOCRIT 18.8 % (37.0-47.0); MEAN CORPUSCULAR VOLUME 107 FL (80-99); PLATELET COUNT 162 K/UL (150-450); RED BLOOD COUNT 1.76 M/UL (4.20-5.40); RED CELL DISTRIBUTION WIDTH 11.8 % (11.6-14.8); WHITE BLOOD COUNT 9.2 K/UL (4.8-10.8)
[2017-08-23 08:33] LABS: HEMOGLOBIN 6.6 G/DL (12.0-16.0)
[2017-08-23] MEDS: Metoprolol Succinate XL 25mg tab ORAL SCH (08:39)
[2017-08-23] MEDS: Memantine 10mg tab ORAL SCH ×2 (08:39→16:54)
[2017-08-23 08:40] LABS: INR 0.9 (0.9-1.1)
[2017-08-23] MEDS: Nortriptyline 25mg cap ORAL SCH (08:40)
[2017-08-23 08:42] LABS: ANION GAP 8 mmol/L (5-15); BLOOD UREA NITROGEN 29 mg/dL (7-18); CALCIUM 8.3 MG/DL (8.5-10.1); CARBON DIOXIDE 25 MMOL/L (21-32); CHLORIDE 106 MMOL/L (98-107); CREATININE 1.4 MG/DL (0.55-1.30); POTASSIUM 4.6 MMOL/L (3.5-5.1); SODIUM 139 MMOL/L (136-145)
[2017-08-23 08:45] LABS: LACTATE DEHYDROGENASE 170 U/L (81-234)
[2017-08-23] MEDS: Heparin 5000 units/ml inj SUBQ SCH ×2 (08:47→21:43)
--- NOTE | 2017-08-23 09:02 | General Progress Note ---
Assessment/Plan Assessment/Plan (1) Left hip pain (2) Left hip fracture s/p ORIF (3) Lumbar DDD (4) Lumbar Spondylosis (5) H/o Lumbar fusion Pt will be continues on Morphine, we will discontinue [place] and start Percocet 5/325mg PO 1.5 tabs Q4H PRN. She will bring in the Butrans patch from home and it will be started as POM. Parameters will placed to hold narcotics for oversedation or SBP<90 or DBP <60 or RR<12. D/w Dr. Foy and he concurred. Subjective Date patient seen: Aug 23, 2017 Time patient seen: 08:45 - am Allergies: Coded Allergies: GABAPENTIN (Verified Allergy, Unknown, 08/20/17) HYDROCHLOROTHIAZIDE (Verified Allergy, Unknown, 08/20/17) PENTAZOCINE (Verified Allergy, Unknown, 08/20/17) Subjective REVIEW OF SYSTEMS: Denies rash, fever, chills, sweating, dizziness, drowsiness, blurred vision, sore throat, or change in weight. No shortness of breath, chest pain, palpitations, or cough. No nausea, vomiting, diarrhea, or blood in the stool or urine. No bowel or bladder incontinence. No dysuria. She is complaining of left hip pain. SUBJECTIVE: Patient is in bed no signs of distress s/o ORIF of left hip fracture. She reports that as an outpt she takes Butrans patch which was last place 2 weeks ago and Percocet. At this time her morphine was increased to 6mg s/p surgery. The [place] is ineffective and says that Percocet works better. Objective Last 24 Hour Vital Signs Date Time Temp Pulse Resp B/P (MAP) Pulse Ox O2 Delivery O2 Flow Rate FiO2 08/23/17 08:39 78 104/62 08/23/17 07:49 98.2 78 19 104/62 93 Nasal Cannula 3.0 08/23/17 04:04 97.6 81 18 113/53 99 Nasal Cannula 3.0 08/23/17 00:08 98.7 77 18 124/69 95 Room Air 08/22/17 20:11 98.8 81 19 127/64 95 Nasal Cannula 3.0 08/22/17 16:36 99.8 79 18 132/53 100 Room Air 08/22/17 12:29 98.3 94 18 119/67 100 Room Air Intake and Output 08/23/17 08/24/17 19:00 07:00 Intake Total 240 ml Balance 240 ml Intake Oral 240 ml Laboratory Tests 08/23/17 00:30: Urine Color Pale yellow, Urine Appearance Clear, Urine pH 5, Urine Specific [place] 1.020, Urine Protein 1+H, Urine Glucose (UA) Negative, Urine Ketones Negative, Urine Occult Blood Negative, Urine Nitrite Negative, Urine Bilirubin Negative, Urine Urobilinogen Normal, Urine Leukocyte Esterase 2+H, Urine RBC 0-2 , Urine WBC 5-10H, Urine Squamous Epithelial Cells Few, Urine Bacteria Few, Urine Eosinophils None seen, Urine Random Sodium < 10L, Urine Potassium Timed 52 08/23/17 06:50: White Blood Count 9.2, Red Blood Count 1.76L, Hemoglobin 6.6*L, Hematocrit 18.8L , Mean Corpuscular Volume 107H, Mean Corpuscular Hemoglobin 37.4H, Mean Corpuscular Hemoglobin Concent 35.1, Red Cell Distribution Width 11.8, Platelet Count 162, Mean Platelet Volume 6.2L, Neutrophils (%) (Auto) , Lymphocytes (%) ( Auto) , Monocytes (%) (Auto) , Eosinophils (%) (Auto) , Basophils (%) (Auto) , Neutrophils % (Manual) [Pending], Lymphocytes % (Manual) [Pending], Platelet Estimate [Pending], Platelet Morphology [Pending], Erythrocyte Sedimentation Rate [Pending], Reticulocyte Count [Pending], Prothrombin Time 9.3, Prothromb Time International Ratio 0.9, Activated Partial Thromboplast Time 27, Sodium Level [Pending], Potassium Level [Pending], Chloride Level [Pending], Carbon Dioxide Level [Pending], Blood Urea Nitrogen [Pending], Creatinine [Pending], Estimat Glomerular Filtration Rate [Pending], Glucose Level [Pending], Calcium Level [Pending], Iron Level [Pending], Unsaturated Iron Binding [Pending], Lactate Dehydrogenase [Pending], Vitamin B12 Level [Pending], Folate [Pending] Height (Feet): 5 Height (Inches): 4.00 Weight (Pounds): 110 BOBY SARMIENTO N. P.A. Aug 23, 2017 09:02
[2017-08-23 09:22] LABS: % IRON SATURATION 7 % (15-50); IRON 10 ug/dL (50-175); TOTAL IRON BINDING CAPACITY 140 ug/dL (250-450)
--- NOTE | 2017-08-23 10:28 | Pulmonology Progress Note ---
Assessment/Plan Problems: (1) Anemia (2) ATN (acute tubular necrosis) (3) Diabetes (4) Fracture, intertrochanteric, left femur (5) Dementia (6) HTN (hypertension) (7) Hypothyroidism Assessment/Plan increase morphine to 8 mg IV q 3 hours pt/ot anemia w/u transfuse prbc Lozenges for sore throat check renal parameters dvt prophylaxis Subjective ROS Limited/Unobtainable: No Interval Events: c/o sore throat Allergies: Coded Allergies: GABAPENTIN (Verified Allergy, Unknown, 08/20/17) HYDROCHLOROTHIAZIDE (Verified Allergy, Unknown, 08/20/17) PENTAZOCINE (Verified Allergy, Unknown, 08/20/17) Objective Last 24 Hour Vital Signs Date Time Temp Pulse Resp B/P (MAP) Pulse Ox O2 Delivery O2 Flow Rate FiO2 08/23/17 08:39 78 104/62 08/23/17 07:49 98.2 78 19 104/62 93 Nasal Cannula 3.0 08/23/17 04:04 97.6 81 18 113/53 99 Nasal Cannula 3.0 08/23/17 00:08 98.7 77 18 124/69 95 Room Air 08/22/17 20:11 98.8 81 19 127/64 95 Nasal Cannula 3.0 08/22/17 16:36 99.8 79 18 132/53 100 Room Air 08/22/17 12:29 98.3 94 18 119/67 100 Room Air Intake and Output 08/23/17 08/24/17 19:00 07:00 Intake Total 240 ml Balance 240 ml Intake Oral 240 ml General Appearance: WD/WN HEENT: normocephalic, atraumatic Respiratory/Chest: chest wall non-tender, lungs clear Abdomen: normal bowel sounds, soft, non tender Genitourinary: normal external genitalia Extremities: no clubbing Skin: no ulcers 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 Lymphatic: no neck adenopathy Laboratory Tests 08/23/17 00:30: Urine Color Pale yellow, Urine Appearance Clear, Urine pH 5, Urine Specific [place] 1.020, Urine Protein 1+H, Urine Glucose (UA) Negative, Urine Ketones Negative, Urine Occult Blood Negative, Urine Nitrite Negative, Urine Bilirubin Negative, Urine Urobilinogen Normal, Urine Leukocyte Esterase 2+H, Urine RBC 0-2 , Urine WBC 5-10H, Urine Squamous Epithelial Cells Few, Urine Bacteria Few, Urine Eosinophils None seen, Urine Random Sodium < 10L, Urine Potassium Timed 52 08/23/17 06:50: White Blood Count 9.2, Red Blood Count 1.76L, Hemoglobin 6.6*L, Hematocrit 18.8L , Mean Corpuscular Volume 107H, Mean Corpuscular Hemoglobin 37.4H, Mean Corpuscular Hemoglobin Concent 35.1, Red Cell Distribution Width 11.8, Platelet Count 162, Mean Platelet Volume 6.2L, Neutrophils (%) (Auto) , Lymphocytes (%) ( Auto) , Monocytes (%) (Auto) , Eosinophils (%) (Auto) , Basophils (%) (Auto) , Differential Total Cells Counted 100, Neutrophils % (Manual) 71, Lymphocytes % ( Manual) 15L, Monocytes % (Manual) 12H, Eosinophils % (Manual) 2, Basophils % ( Manual) 0, Band Neutrophils 0, Platelet Estimate Adequate, Platelet Morphology Normal, Erythrocyte Sedimentation Rate 90H, Reticulocyte Count 2.3H, Prothrombin Time 9.3, Prothromb Time International Ratio 0.9, Activated Partial Thromboplast Time 27, Sodium Level 139, Potassium Level 4.6, Chloride Level 106 , Carbon Dioxide Level 25, Anion Gap 8, Blood Urea Nitrogen 29H, Creatinine 1.4H , Estimat Glomerular Filtration Rate , Glucose Level 117H, Calcium Level 8.3L, Iron Level 10L, Total Iron Binding Capacity 140L, Percent Iron Saturation 7L, Unsaturated Iron Binding 130, Lactate Dehydrogenase 170, Vitamin B12 Level 530, Folate 35.5H Current Medications Medications (Trade) Dose Ordered Sig/Lesa Route PRN Reason Start Time Stop Time Status Last Admin Dose Admin Acetaminophen (Tylenol) 650 mg Q4H PRN ORAL fever 08/20/17 14:45 09/19/17 14:44 Al Hydroxide/Mg Hydroxide (Mylanta II) 30 ml Q6H PRN ORAL dyspepsia 08/20/17 14:45 09/19/17 14:44 Dextrose (Dextrose 50%) STAT PRN IV Hypoglycemia 08/20/17 19:15 09/19/17 19:14 Heparin Sodium (Porcine) (Heparin 5000 units/ml) 5,000 units EVERY 12 HOURS SUBQ 08/20/17 21:00 09/19/17 20:59 08/23/17 08:47 Insulin Aspart (NovoLOG) BEFORE MEALS AND HS SUBQ 08/20/17 21:00 09/19/17 20:59 08/23/17 05:54 Levothyroxine Sodium (Synthroid) 75 mcg DAILY ORAL 08/21/17 09:00 09/20/17 08:59 08/23/17 08:39 Lorazepam (Ativan 2mg/ml 1ml) 0.5 mg Q4H PRN IV For Anxiety 08/20/17 14:45 08/27/17 14:44 08/22/17 23:43 Memantine (Namenda) 10 mg TWICE A DAY ORAL 08/20/17 18:00 09/19/17 17:59 08/23/17 08:39 Metoprolol Succinate (Toprol XL) 25 mg DAILY ORAL 08/21/17 09:00 09/20/17 08:59 08/23/17 08:39 Morphine Sulfate (Morphine Sulfate) 6 mg Q3H PRN IVP Severe Pain (Pain Scale 7-10) 08/22/17 11:00 08/29/17 10:59 08/23/17 07:02 Nortriptyline HCl (Pamelor) 75 mg DAILY ORAL 08/21/17 09:00 09/20/17 08:59 08/23/17 08:40 Ondansetron HCl (Zofran) 4 mg Q6H PRN IVP Nausea & Vomiting 08/20/17 14:45 09/19/17 14:44 Oxycodone/ Acetaminophen (Percocet 5-325) 1.5 tab Q4H PRN ORAL Moderate Pain (Pain Scale 4-6) 08/23/17 09:00 08/30/17 08:59 Polyethylene Glycol (Miralax) 17 gm HSPRN PRN ORAL Constipation 08/20/17 14:45 09/19/17 14:44 Pravastatin Sodium (Pravachol) 40 mg BEDTIME ORAL 08/20/17 21:00 09/19/17 20:59 08/22/17 21:03 Ranitidine HCl (Zantac) 150 mg DAILY ORAL 08/21/17 09:00 09/20/17 08:59 08/23/17 08:39 Zolpidem Tartrate (Ambien) 5 mg HSPRN PRN ORAL Insomnia 08/20/17 14:45 08/27/17 14:44 LIN TATE Aug 23, 2017 10:28
[2017-08-23] MEDS: oxyCODONE HCL/Acetaminophen 5/325mg ORAL PRN ×2 (11:53→16:54)
--- NOTE | 2017-08-23 15:28 | Internal Med Progress Note ---
Subjective Date of Service: Aug 23, [address] Dickinson Attending Physician Jeff Leigh MD Current Medications Medications (Trade) Dose Ordered Sig/Lesa Route PRN Reason Start Time Stop Time Status Last Admin Dose Admin Acetaminophen (Tylenol) 650 mg Q4H PRN ORAL fever 08/20/17 14:45 09/19/17 14:44 Al Hydroxide/Mg Hydroxide (Mylanta II) 30 ml Q6H PRN ORAL dyspepsia 08/20/17 14:45 09/19/17 14:44 Cetylpyridinium Chloride (Cepacol) 1 lozenge Q2H PRN ROMAN THROAT PAIN 08/23/17 10:30 09/22/17 10:29 Dextrose (Dextrose 50%) STAT PRN IV Hypoglycemia 08/20/17 19:15 09/19/17 19:14 Heparin Sodium (Porcine) (Heparin 5000 units/ml) 5,000 units EVERY 12 HOURS SUBQ 08/20/17 21:00 09/19/17 20:59 08/23/17 08:47 Insulin Aspart (NovoLOG) BEFORE MEALS AND HS SUBQ 08/20/17 21:00 09/19/17 20:59 08/23/17 12:02 Levothyroxine Sodium (Synthroid) 75 mcg DAILY ORAL 08/21/17 09:00 09/20/17 08:59 08/23/17 08:39 Lorazepam (Ativan 2mg/ml 1ml) 0.5 mg Q4H PRN IV For Anxiety 08/20/17 14:45 08/27/17 14:44 08/22/17 23:43 Memantine (Namenda) 10 mg TWICE A DAY ORAL 08/20/17 18:00 09/19/17 17:59 08/23/17 08:39 Metoprolol Succinate (Toprol XL) 25 mg DAILY ORAL 08/21/17 09:00 09/20/17 08:59 08/23/17 08:39 Morphine Sulfate (Morphine Sulfate) 8 mg Q3H PRN IVP Severe Pain (Pain Scale 7-10) 08/23/17 11:00 08/30/17 10:59 Nortriptyline HCl (Pamelor) 75 mg DAILY ORAL 08/21/17 09:00 09/20/17 08:59 08/23/17 08:40 Ondansetron HCl (Zofran) 4 mg Q6H PRN IVP Nausea & Vomiting 08/20/17 14:45 09/19/17 14:44 Oxycodone/ Acetaminophen (Percocet 5-325) 1.5 tab Q4H PRN ORAL Moderate Pain (Pain Scale 4-6) 08/23/17 09:00 08/30/17 08:59 08/23/17 11:53 Polyethylene Glycol (Miralax) 17 gm HSPRN PRN ORAL Constipation 08/20/17 14:45 09/19/17 14:44 Pravastatin Sodium (Pravachol) 40 mg BEDTIME ORAL 08/20/17 21:00 09/19/17 20:59 08/22/17 21:03 Ranitidine HCl (Zantac) 150 mg DAILY ORAL 08/21/17 09:00 09/20/17 08:59 08/23/17 08:39 Zolpidem Tartrate (Ambien) 5 mg HSPRN PRN ORAL Insomnia 08/20/17 14:45 08/27/17 14:44 Allergies: Coded Allergies: GABAPENTIN (Verified Allergy, Unknown, 08/20/17) HYDROCHLOROTHIAZIDE (Verified Allergy, Unknown, 08/20/17) PENTAZOCINE (Verified Allergy, Unknown, 08/20/17) ROS Limited/Unobtainable: No Constitutional: Reports: no symptoms HEENT: Reports: no symptoms Cardiovascular: Reports: no symptoms Respiratory: Reports: no symptoms Gastrointestinal/Abdominal: Reports: no symptoms Genitourinary: Reports: no symptoms Neurologic/Psychiatric: Reports: no symptoms Subjective 86 YO F admitted with displaced left intertrochanteric femur fracture. S/P ORIF Thu08/21/17. Cover for Int [place]-Dr Leigh Objective Last Vital Signs Date Time Temp Pulse Resp B/P (MAP) Pulse Ox O2 Delivery O2 Flow Rate FiO2 08/23/17 12:30 98.4 75 19 100/55 99 Room Air 08/23/17 07:49 3.0 08/22/17 01:36 21 Laboratory Tests Test 08/23/17 00:30 08/23/17 06:50 Urine Color Pale yellow Urine Appearance Clear Urine pH 5 (4.5-8.0) Urine Specific [place] 1.020 (1.005-1.035) Urine Protein 1+ (NEGATIVE) H Urine Glucose (UA) Negative (NEGATIVE) Urine Ketones Negative (NEGATIVE) Urine Occult Blood Negative (NEGATIVE) Urine Nitrite Negative (NEGATIVE) Urine Bilirubin Negative (NEGATIVE) Urine Urobilinogen Normal MG/DL (0.0-1.0) Urine Leukocyte Esterase 2+ (NEGATIVE) H Urine RBC 0-2 /HPF (0 - 2) Urine WBC 5-10 /HPF (0 - 2) H Urine Squamous Epithelial Cells Few /LPF (NONE/OCC) Urine Bacteria Few /HPF (NONE) Urine Eosinophils None seen Urine Random Sodium < 10 MEQ/L (20-110) L Urine Potassium Timed 52 mmol/L (12-62) White Blood Count 9.2 K/UL (4.8-10.8) Red Blood Count 1.76 M/UL (4.20-5.40) L Hemoglobin 6.6 G/DL (12.0-16.0) *L Hematocrit 18.8 % (37.0-47.0) L Mean Corpuscular Volume 107 FL (80-99) H Mean Corpuscular Hemoglobin 37.4 PG (27.0-31.0) H Mean Corpuscular Hemoglobin Concent 35.1 G/DL (32.0-36.0) Red Cell Distribution Width 11.8 % (11.6-14.8) Platelet Count 162 K/UL (150-450) Mean Platelet Volume 6.2 FL (6.5-10.1) L Neutrophils (%) (Auto) % (45.0-75.0) Lymphocytes (%) (Auto) % (20.0-45.0) Monocytes (%) (Auto) % (1.0-10.0) Eosinophils (%) (Auto) % (0.0-3.0) Basophils (%) (Auto) % (0.0-2.0) Differential Total Cells Counted 100 Neutrophils % (Manual) 71 % (45-75) Lymphocytes % (Manual) 15 % (20-45) L Monocytes % (Manual) 12 % (1-10) H Eosinophils % (Manual) 2 % (0-3) Basophils % (Manual) 0 % (0-2) Band Neutrophils 0 % (0-8) Platelet Estimate Adequate Platelet Morphology Normal Erythrocyte Sedimentation Rate 90 MM/HR (0-42) H Reticulocyte Count 2.3 % (0.0-2.0) H Prothrombin Time 9.3 SEC (9.30-11.50) Prothromb Time International Ratio 0.9 (0.9-1.1) Activated Partial Thromboplast Time 27 SEC (23-33) Sodium Level 139 MMOL/L (136-145) Potassium Level 4.6 MMOL/L (3.5-5.1) Chloride Level 106 MMOL/L (98-107) Carbon Dioxide Level 25 MMOL/L (21-32) Anion Gap 8 mmol/L (5-15) Blood Urea Nitrogen 29 mg/dL (7-18) H Creatinine 1.4 MG/DL (0.55-1.30) H Estimat Glomerular Filtration Rate mL/min (>60) Glucose Level 117 MG/DL (74-106) H Calcium Level 8.3 MG/DL (8.5-10.1) L Iron Level 10 ug/dL (50-175) L Total Iron Binding Capacity 140 ug/dL (250-450) L Percent Iron Saturation 7 % (15-50) L Unsaturated Iron Binding 130 ug/dL (112-346) Lactate Dehydrogenase 170 U/L (81-234) Vitamin B12 Level 530 PG/ML (193-986) Folate 35.5 NG/ML (3.1-17.5) H Intake and Output 08/23/17 08/24/17 19:00 07:00 Intake Total 700 ml Balance 700 ml Intake Oral 700 ml # Voids 1 Objective General Appearance: WD/WN, no apparent distress, alert EENT: PERRL/EOMI, normal ENT inspection Neck: non-tender, normal alignment, supple, normal inspection Cardiovascular: normal peripheral pulses, normal rate, regular rhythm, no gallop/murmur, no JVD Respiratory/Chest: chest wall non-tender, lungs clear, normal breath sounds, no respiratory distress, no accessory muscle use Abdomen: normal bowel sounds, non tender, soft, no organomegaly, no mass Extremities: normal range of motion Edema: trace edema 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 Transfuse 1 unit PRBC today Status: progressing Assessment/Plan Acute rehab vs [facility] [address] D[place]INSON Aug 23, 2017 15:28
[2017-08-23] MEDS ORDERED: NS 500ML IV ONE (15:36)
[2017-08-23] MEDS ORDERED: Tubing Blood Filter IV ONE (15:36)
--- NOTE | 2017-08-23 17:29 | Cardiac Electrophysiology PN ---
Assessment/Plan Assessment/Plan 1. Hypertension. On Toprol-XL 25 mg daily 2. Status post fall with a Left hip fracture.S/P ORIF 08/21/17. The patient has normal left ventricular systolic function. Denies any prior myocardial infarction or congestive heart failure. 3. Hypothyroidism, on Synthroid. 4. Diabetes, on insulin. 5. anemia. Getting 2 PRBCs. stool OB pending. Subjective Subjective Bertrand one unit PRBC and expecting another one. No chest pain or SOB. Objective Last 24 Hour Vital Signs Date Time Temp Pulse Resp B/P (MAP) Pulse Ox O2 Delivery O2 Flow Rate FiO2 08/23/17 16:00 98.6 72 18 99/42 94 Room Air 08/23/17 12:30 98.4 75 19 100/55 99 Room Air 08/23/17 08:39 78 104/62 08/23/17 07:49 98.2 78 19 104/62 93 Nasal Cannula 3.0 08/23/17 04:04 97.6 81 18 113/53 99 Nasal Cannula 3.0 08/23/17 00:08 98.7 77 18 124/69 95 Room Air 08/22/17 20:11 98.8 81 19 127/64 95 Nasal Cannula 3.0 Intake and Output 08/23/17 08/24/17 19:00 07:00 Intake Total 700 ml Balance 700 ml Intake Oral 700 ml # Voids 1 Laboratory Tests Test 08/23/17 00:30 08/23/17 06:50 Urine Color Pale yellow Urine Appearance Clear Urine pH 5 (4.5-8.0) Urine Specific [place] 1.020 (1.005-1.035) Urine Protein 1+ (NEGATIVE) H Urine Glucose (UA) Negative (NEGATIVE) Urine Ketones Negative (NEGATIVE) Urine Occult Blood Negative (NEGATIVE) Urine Nitrite Negative (NEGATIVE) Urine Bilirubin Negative (NEGATIVE) Urine Urobilinogen Normal MG/DL (0.0-1.0) Urine Leukocyte Esterase 2+ (NEGATIVE) H Urine RBC 0-2 /HPF (0 - 2) Urine WBC 5-10 /HPF (0 - 2) H Urine Squamous Epithelial Cells Few /LPF (NONE/OCC) Urine Bacteria Few /HPF (NONE) Urine Eosinophils None seen Urine Random Sodium < 10 MEQ/L (20-110) L Urine Potassium Timed 52 mmol/L (12-62) White Blood Count 9.2 K/UL (4.8-10.8) Red Blood Count 1.76 M/UL (4.20-5.40) L Hemoglobin 6.6 G/DL (12.0-16.0) *L Hematocrit 18.8 % (37.0-47.0) L Mean Corpuscular Volume 107 FL (80-99) H Mean Corpuscular Hemoglobin 37.4 PG (27.0-31.0) H Mean Corpuscular Hemoglobin Concent 35.1 G/DL (32.0-36.0) Red Cell Distribution Width 11.8 % (11.6-14.8) Platelet Count 162 K/UL (150-450) Mean Platelet Volume 6.2 FL (6.5-10.1) L Neutrophils (%) (Auto) % (45.0-75.0) Lymphocytes (%) (Auto) % (20.0-45.0) Monocytes (%) (Auto) % (1.0-10.0) Eosinophils (%) (Auto) % (0.0-3.0) Basophils (%) (Auto) % (0.0-2.0) Differential Total Cells Counted 100 Neutrophils % (Manual) 71 % (45-75) Lymphocytes % (Manual) 15 % (20-45) L Monocytes % (Manual) 12 % (1-10) H Eosinophils % (Manual) 2 % (0-3) Basophils % (Manual) 0 % (0-2) Band Neutrophils 0 % (0-8) Platelet Estimate Adequate Platelet Morphology Normal Erythrocyte Sedimentation Rate 90 MM/HR (0-42) H Reticulocyte Count 2.3 % (0.0-2.0) H Prothrombin Time 9.3 SEC (9.30-11.50) Prothromb Time International Ratio 0.9 (0.9-1.1) Activated Partial Thromboplast Time 27 SEC (23-33) Sodium Level 139 MMOL/L (136-145) Potassium Level 4.6 MMOL/L (3.5-5.1) Chloride Level 106 MMOL/L (98-107) Carbon Dioxide Level 25 MMOL/L (21-32) Anion Gap 8 mmol/L (5-15) Blood Urea Nitrogen 29 mg/dL (7-18) H Creatinine 1.4 MG/DL (0.55-1.30) H Estimat Glomerular Filtration Rate mL/min (>60) Glucose Level 117 MG/DL (74-106) H Calcium Level 8.3 MG/DL (8.5-10.1) L Iron Level 10 ug/dL (50-175) L Total Iron Binding Capacity 140 ug/dL (250-450) L Percent Iron Saturation 7 % (15-50) L Unsaturated Iron Binding 130 ug/dL (112-346) Lactate Dehydrogenase 170 U/L (81-234) Vitamin B12 Level 530 PG/ML (193-986) Folate 35.5 NG/ML (3.1-17.5) H Objective HEAD AND NECK: No JVD or carotid bruits. LUNGS: Clear. CARDIOVASCULAR: Regular S1 and S2 with no gallop or murmur. ABDOMEN: Soft. EXTREMITIES: S/P Left hip ORIF VIVIAN MCCONNELL Aug 23, 2017 17:29
--- NOTE | 2017-08-23 18:00 | Cardiology Report ---
APPROVED REPORT EXAM: Two-dimensional and M-mode echocardiogram with Doppler and color Doppler. INDICATION Preop eval M-Mode DIMENSIONS IVSd0.9 (0.7-1.1cm)Left Atrium (MM)2.9 (1.6-4.0cm) LVDd3.8 (3.5-5.6cm)Aortic Root3.0 (2.0-3.7cm) PWd1.6 (0.7-1.1cm)Aortic Cusp Exc.0.9 (1.5-2.0cm) IVSs1.2 cm LVDs2.7 (2.5-4.0cm) PWs2.1 cm Normal left ventricular chamber size, hyperdynamic systolic function and wall motion. Left ventricular ejection fraction estimated to be 70-75 %. Moderate left ventricular hypertrophy by 2-D. Anterior Echo-free space, may be due to pericardial fat or effusion. All other cardiac chamber sizes are within normal limits. Aortic valve calcification with decreased cusp excursion c/w moderate aortic stenosis. Thickened mitral valve leaflets with sclerotic appearing ant mitral valve with normal excursion. Mitral annulus and aortic root calcification. Pulmonic valve not well visualized. Normal tricuspid valve structure. IVC at normal size with physiologic collapse. A color flow and spectral Doppler study was performed and revealed: Mild aortic regurgitation. Peak aortic valve gradient of 31 mm Hg and a mean of 17 mmHg. Aortic valve area 1.5 cm2 calculated by continuity equation suggestive of moderate aortic stenosis. Trace mitral regurgitation. Mitral diastolic velocities suggest reduced left ventricular relaxation c/w mild LV diastolic dysfunction (Grade I). Trace tricuspid regurgitation. Tricuspid systolic velocities suggests peak right ventricular systolic pressure of 20 mmHg. Pulmonic regurgitation present.
--- NOTE | 2017-08-23 18:47 | Cardiology Report ---
APPROVED REPORT EKG Measurement Heart [id number] [place] [id number] Normal sinus rhythm Possible Anterior infarct, age undetermined Abnormal ECG
--- NOTE | 2017-08-23 18:47 | Cardiology Report ---
APPROVED REPORT EKG Measurement Heart [id number] [place] [id number] Normal sinus rhythm Possible Anterior infarct, age undetermined Abnormal ECG
--- NOTE | 2017-08-23 18:47 | Cardiology Report ---
APPROVED REPORT EKG Measurement Heart [id number] [place] [id number] Normal sinus rhythm Possible Anterior infarct, age undetermined Abnormal ECG
[2017-08-24] MEDS: Morphine Sulfate 10mg/ml Inj IVP PRN (03:50)
[2017-08-24 04:31] VITALS: BP 109/55
[2017-08-24] MEDS: NovoLOG Insulin Flexpen SUBQ SCH ×2 (06:37→12:07)
[2017-08-24] MEDS: oxyCODONE HCL/Acetaminophen 5/325mg ORAL PRN (06:48)
[2017-08-24 08:00] VITALS: BP 119/50
--- NOTE | 2017-08-24 08:27 | General Progress Note ---
Assessment/Plan Assessment/Plan (1) Left hip pain (2) Left hip fracture s/p ORIF (3) Lumbar DDD (4) Lumbar Spondylosis (5) H/o Lumbar fusion Pt will be continues on Morphine reduced to 4mg IV Q4H PRN, Percocet. We will start Morphine 15mg PO 1 tab Q8H ATC. D/w Dr. Foy and he concurred. Subjective Date patient seen: Aug 24, 2017 Time patient seen: 07:15 - am Allergies: Coded Allergies: GABAPENTIN (Verified Allergy, Unknown, 08/20/17) HYDROCHLOROTHIAZIDE (Verified Allergy, Unknown, 08/20/17) PENTAZOCINE (Verified Allergy, Unknown, 08/20/17) Subjective REVIEW OF SYSTEMS: Denies rash, fever, chills, sweating, dizziness, drowsiness, blurred vision, sore throat, or change in weight. No shortness of breath, chest pain, palpitations, or cough. No nausea, vomiting, diarrhea, or blood in the stool or urine. No bowel or bladder incontinence. No dysuria. She is complaining of left hip pain. SUBJECTIVE: Patient is standing and doing PT with at bed side. Butrans patch was not brought in from home. The Morphine was increased to 8mg. I d/w patient about starting her on Morphine ER and reducing the Morphine IV and she understands. Objective Last 24 Hour Vital Signs Date Time Temp Pulse Resp B/P (MAP) Pulse Ox O2 Delivery O2 Flow Rate FiO2 08/24/17 08:00 98.7 76 19 119/50 98 Room Air 08/24/17 04:31 98.6 66 19 109/55 98 Room Air 3.0 08/24/17 04:20 98.6 08/23/17 23:57 98.6 65 19 111/58 97 Nasal Cannula 2.0 08/23/17 20:35 98.4 68 20 112/53 97 Nasal Cannula 2.0 21 08/23/17 19:59 98.8 72 20 115/49 97 Nasal Cannula 2.0 08/23/17 16:00 98.6 72 18 99/42 94 Room Air 08/23/17 12:30 98.4 75 19 100/55 99 Room Air 08/23/17 08:39 78 104/62 Height (Feet): 5 Height (Inches): 4.00 Weight (Pounds): 110 BOBY SARMIENTO Aug 24, 2017 08:27
[2017-08-24] MEDS: Metoprolol Succinate XL 25mg tab ORAL SCH (09:00)
[2017-08-24] MEDS ORDERED: MS Contin 15mg tab ORAL SCH (09:00)
[2017-08-24] MEDS: Heparin 5000 units/ml inj SUBQ SCH (09:00)
[2017-08-24] MEDS: Memantine 10mg tab ORAL SCH (09:18)
[2017-08-24] MEDS: Nortriptyline 25mg cap ORAL SCH (09:18)
[2017-08-24] MEDS ORDERED: Naloxegol Oxalate 25mg tab ORAL SCH (10:00)
[2017-08-24] MEDS ORDERED: Morphine Sulfate 4mg/ml Inj IVP PRN (11:00)
--- NOTE | 2017-08-24 11:07 | Internal Med Progress Note ---
Subjective Date of Service: Aug 24, [address] Dickinson Attending Physician Jeff Leigh MD Current Medications Medications (Trade) Dose Ordered Sig/Lesa Route PRN Reason Start Time Stop Time Status Last Admin Dose Admin Acetaminophen (Tylenol) 650 mg Q4H PRN ORAL fever 08/20/17 14:45 09/19/17 14:44 Al Hydroxide/Mg Hydroxide (Mylanta II) 30 ml Q6H PRN ORAL dyspepsia 08/20/17 14:45 09/19/17 14:44 Cetylpyridinium Chloride (Cepacol) 1 lozenge Q2H PRN ROMAN THROAT PAIN 08/23/17 10:30 09/22/17 10:29 Dextrose (Dextrose 50%) STAT PRN IV Hypoglycemia 08/20/17 19:15 09/19/17 19:14 Heparin Sodium (Porcine) (Heparin 5000 units/ml) 5,000 units EVERY 12 HOURS SUBQ 08/20/17 21:00 09/19/17 20:59 08/23/17 21:43 Insulin Aspart (NovoLOG) BEFORE MEALS AND HS SUBQ 08/20/17 21:00 09/19/17 20:59 08/24/17 06:37 Levothyroxine Sodium (Synthroid) 75 mcg DAILY ORAL 08/21/17 09:00 09/20/17 08:59 08/24/17 09:19 Lorazepam (Ativan 2mg/ml 1ml) 0.5 mg Q4H PRN IV For Anxiety 08/20/17 14:45 08/27/17 14:44 08/22/17 23:43 Memantine (Namenda) 10 mg TWICE A DAY ORAL 08/20/17 18:00 09/19/17 17:59 08/24/17 09:18 Metoprolol Succinate (Toprol XL) 25 mg DAILY ORAL 08/21/17 09:00 09/20/17 08:59 08/23/17 08:39 Morphine Sulfate (MS Contin) 15 mg Q8H ORAL 08/24/17 09:00 08/31/17 08:59 08/24/17 10:37 Morphine Sulfate (Morphine Sulfate) 4 mg Q3H PRN IVP Severe Pain (Pain Scale 7-10) 08/24/17 11:00 08/31/17 10:59 Naloxegol (Movantik) 12.5 mg DAILY ORAL 08/24/17 10:00 09/23/17 09:59 08/24/17 10:37 Nortriptyline HCl (Pamelor) 75 mg DAILY ORAL 08/21/17 09:00 09/20/17 08:59 08/24/17 09:18 Ondansetron HCl (Zofran) 4 mg Q6H PRN IVP Nausea & Vomiting 08/20/17 14:45 09/19/17 14:44 Oxycodone/ Acetaminophen (Percocet 5-325) 1.5 tab Q4H PRN ORAL Moderate Pain (Pain Scale 4-6) 08/23/17 09:00 08/30/17 08:59 08/24/17 06:48 Polyethylene Glycol (Miralax) 17 gm HSPRN PRN ORAL Constipation 08/27/17 00:00 09/26/17 00:00 Pravastatin Sodium (Pravachol) 40 mg BEDTIME ORAL 08/20/17 21:00 09/19/17 20:59 08/23/17 21:45 Ranitidine HCl (Zantac) 150 mg DAILY ORAL 08/21/17 09:00 09/20/17 08:59 08/24/17 09:18 Zolpidem Tartrate (Ambien) 5 mg HSPRN PRN ORAL Insomnia 08/20/17 14:45 08/27/17 14:44 Allergies: Coded Allergies: GABAPENTIN (Verified Allergy, Unknown, 08/20/17) HYDROCHLOROTHIAZIDE (Verified Allergy, Unknown, 08/20/17) PENTAZOCINE (Verified Allergy, Unknown, 08/20/17) ROS Limited/Unobtainable: No Constitutional: Reports: no symptoms HEENT: Reports: no symptoms Cardiovascular: Reports: no symptoms Respiratory: Reports: no symptoms Gastrointestinal/Abdominal: Reports: no symptoms Genitourinary: Reports: no symptoms Neurologic/Psychiatric: Reports: no symptoms Subjective 86 YO F admitted with displaced left intertrochanteric femur fracture. S/P ORIF Thu08/21/17. Cover for Int Britta Leigh Objective Last Vital Signs Date Time Temp Pulse Resp B/P (MAP) Pulse Ox O2 Delivery O2 Flow Rate FiO2 08/24/17 09:00 76 119/50 08/24/17 08:00 98.7 19 98 Room Air 08/24/17 04:31 3.0 08/23/17 20:35 21 Intake and Output 08/24/17 08/25/17 19:00 07:00 Intake Total 240 ml Balance 240 ml Intake Oral 240 ml # Voids 3 Objective General Appearance: WD/WN, no apparent distress, alert EENT: PERRL/EOMI, normal ENT inspection Neck: non-tender, normal alignment, supple, normal inspection Cardiovascular: normal peripheral pulses, normal rate, regular rhythm, no gallop/murmur, no JVD Respiratory/Chest: chest wall non-tender, lungs clear, normal breath sounds, no respiratory distress, no accessory muscle use Abdomen: normal bowel sounds, non tender, soft, no organomegaly, no mass Extremities: normal range of motion Edema: trace edema 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 S/P Transfusion 2 units PRBC 08/23/17. Labs pending today Status: progressing Assessment/Plan Discharge planning: [facility] [address] DICKINSON Aug 24, 2017 11:07
[2017-08-24 12:00] VITALS: BP 106/51
--- NOTE | 2017-08-24 12:13 | Diagnostic Imaging Report ---
Indication: Elevated renal function tests Technique: Grayscale and duplex images of the kidneys, retroperitoneum, and bladder were obtained. Comparison:None Findings: Right kidney measures 8.6 cm in length. Left kidney measures 8.3 cm in length. Both kidneys demonstrate normal echogenicity. No hydronephrosis. There is a 3 cm left upper pole renal cyst.. Normal inferior vena cava. Bladder is normal. Patient reportedly has a bladder implant device. This is not imaged Impression: Negative for hydronephrosis or other significant abnormality Incidental finding left upper pole renal cyst.
[2017-08-24 12:25] LABS: BASOPHILS % (AUTO) 0.7 % (0.0-2.0); EOSINOPHILS % (AUTO) 6.7 % (0.0-3.0); HEMOGLOBIN 9.3 G/DL (12.0-16.0); LYMPHOCYTES % (AUTO) 11.9 % (20.0-45.0); MEAN CORPUSCULAR VOLUME 101 FL (80-99); MONOCYTES % (AUTO) 11.8 % (1.0-10.0); NEUTROPHILS % (AUTO) 68.9 % (45.0-75.0); PLATELET COUNT 177 K/UL (150-450); RED BLOOD COUNT 2.78 M/UL (4.20-5.40); WHITE BLOOD COUNT 11.9 K/UL (4.8-10.8)
[2017-08-24 12:44] LABS: INR 0.8 (0.9-1.1)
[2017-08-24 12:51] LABS: ALANINE AMINOTRANSFERASE 28 U/L (12-78); ALBUMIN 2.7 G/DL (3.4-5.0); ALBUMIN/GLOBULIN RATIO 0.8 (1.0-2.7); ALKALINE PHOSPHATASE 72 U/L (46-116); ANION GAP 6 mmol/L (5-15); ASPARTATE AMINO TRANSFERASE 27 U/L (15-37); BILIRUBIN,TOTAL 0.3 MG/DL (0.2-1.0); BLOOD UREA NITROGEN 40 mg/dL (7-18); CALCIUM 8.3 MG/DL (8.5-10.1); CARBON DIOXIDE 26 MMOL/L (21-32); CHLORIDE 103 MMOL/L (98-107); CREATININE 1.5 MG/DL (0.55-1.30); PHOSPHORUS 2.8 MG/DL (2.5-4.9); POTASSIUM 4.4 MMOL/L (3.5-5.1); SODIUM 135 MMOL/L (136-145)
--- NOTE | 2017-08-24 13:10 | Pulmonology Progress Note ---
Assessment/Plan Problems: (1) Anemia (2) ATN (acute tubular necrosis) (3) Diabetes (4) Fracture, intertrochanteric, left femur (5) Dementia (6) HTN (hypertension) (7) Hypothyroidism Assessment/Plan increase morphine to 8 mg IV q 3 hours, pain is better controlled transfused 2 unites prbc Lozenges for sore throat check renal parameters avoid nephrotoxins dvt prophylaxis Subjective ROS Limited/Unobtainable: No Constitutional: Reports: no symptoms HEENT: Repors: no symptoms Allergies: Coded Allergies: GABAPENTIN (Verified Allergy, Unknown, 08/20/17) HYDROCHLOROTHIAZIDE (Verified Allergy, Unknown, 08/20/17) PENTAZOCINE (Verified Allergy, Unknown, 08/20/17) Objective Last 24 Hour Vital Signs Date Time Temp Pulse Resp B/P (MAP) Pulse Ox O2 Delivery O2 Flow Rate FiO2 08/24/17 12:00 97.8 76 19 106/51 95 Nasal Cannula 2.0 08/24/17 09:00 76 119/50 08/24/17 08:00 98.7 76 19 119/50 98 Room Air 08/24/17 04:31 98.6 66 19 109/55 98 Room Air 3.0 08/24/17 04:20 98.6 08/23/17 23:57 98.6 65 19 111/58 97 Nasal Cannula 2.0 08/23/17 20:35 98.4 68 20 112/53 97 Nasal Cannula 2.0 21 08/23/17 19:59 98.8 72 20 115/49 97 Nasal Cannula 2.0 08/23/17 16:00 98.6 72 18 99/42 94 Room Air Intake and Output 08/24/17 08/25/17 19:00 07:00 Intake Total 240 ml Balance 240 ml Intake Oral 240 ml # Voids 3 General Appearance: WD/WN HEENT: normocephalic, atraumatic Respiratory/Chest: chest wall non-tender, lungs clear Cardiovascular: normal peripheral pulses, normal rate Abdomen: normal bowel sounds, soft, non tender Genitourinary: normal external genitalia Extremities: no cyanosis Skin: no rash Laboratory Tests 08/24/17 11:45: White Blood Count 11.9H, Red Blood Count 2.78L, Hemoglobin 9.3#L, Hematocrit 28.0#L, Mean Corpuscular Volume 101H, Mean Corpuscular Hemoglobin 33.6H, Mean Corpuscular Hemoglobin Concent 33.3, Red Cell Distribution Width 15.0H, Platelet Count 177, Mean Platelet Volume 6.8, Neutrophils (%) (Auto) 68.9, Lymphocytes (%) (Auto) 11.9L, Monocytes (%) (Auto) 11.8H, Eosinophils (%) (Auto ) 6.7H, Basophils (%) (Auto) 0.7, Prothrombin Time 8.7L, Prothromb Time International Ratio 0.8L, Activated Partial Thromboplast Time 25, Sodium Level 135L, Potassium Level 4.4, Chloride Level 103, Carbon Dioxide Level 26, Anion Gap 6, Blood Urea Nitrogen 40H, Creatinine 1.5H, Estimat Glomerular Filtration Rate , Glucose Level 125H, Calcium Level 8.3L, Phosphorus Level 2.8, Magnesium Level 2.6H, Total Bilirubin 0.3, Aspartate Amino Transf (AST/SGOT) 27, Alanine Aminotransferase (ALT/SGPT) 28, Alkaline Phosphatase 72, Total Protein 6.0L, Albumin 2.7L, Globulin 3.3, Albumin/Globulin Ratio 0.8L Current Medications Medications (Trade) Dose Ordered Sig/Lesa Route PRN Reason Start Time Stop Time Status Last Admin Dose Admin Acetaminophen (Tylenol) 650 mg Q4H PRN ORAL fever 08/20/17 14:45 09/19/17 14:44 Al Hydroxide/Mg Hydroxide (Mylanta II) 30 ml Q6H PRN ORAL dyspepsia 08/20/17 14:45 09/19/17 14:44 Cetylpyridinium Chloride (Cepacol) 1 lozenge Q2H PRN ROMAN THROAT PAIN 08/23/17 10:30 09/22/17 10:29 Dextrose (Dextrose 50%) STAT PRN IV Hypoglycemia 08/20/17 19:15 09/19/17 19:14 Heparin Sodium (Porcine) (Heparin 5000 units/ml) 5,000 units EVERY 12 HOURS SUBQ 08/20/17 21:00 09/19/17 20:59 08/23/17 21:43 Insulin Aspart (NovoLOG) BEFORE MEALS AND HS SUBQ 08/20/17 21:00 09/19/17 20:59 08/24/17 12:07 Levothyroxine Sodium (Synthroid) 75 mcg DAILY ORAL 08/21/17 09:00 09/20/17 08:59 08/24/17 09:19 Lorazepam (Ativan 2mg/ml 1ml) 0.5 mg Q4H PRN IV For Anxiety 08/20/17 14:45 08/27/17 14:44 08/22/17 23:43 Memantine (Namenda) 10 mg TWICE A DAY ORAL 08/20/17 18:00 09/19/17 17:59 08/24/17 09:18 Metoprolol Succinate (Toprol XL) 25 mg DAILY ORAL 08/21/17 09:00 09/20/17 08:59 08/23/17 08:39 Morphine Sulfate (MS Contin) 15 mg Q8H ORAL 08/24/17 09:00 08/31/17 08:59 08/24/17 10:37 Morphine Sulfate (Morphine Sulfate) 4 mg Q3H PRN IVP Severe Pain (Pain Scale 7-10) 08/24/17 11:00 08/31/17 10:59 Naloxegol (Movantik) 12.5 mg DAILY ORAL 08/24/17 10:00 09/23/17 09:59 08/24/17 10:37 Nortriptyline HCl (Pamelor) 75 mg DAILY ORAL 08/21/17 09:00 09/20/17 08:59 08/24/17 09:18 Ondansetron HCl (Zofran) 4 mg Q6H PRN IVP Nausea & Vomiting 08/20/17 14:45 09/19/17 14:44 Oxycodone/ Acetaminophen (Percocet 5-325) 1.5 tab Q4H PRN ORAL Moderate Pain (Pain Scale 4-6) 08/23/17 09:00 08/30/17 08:59 08/24/17 06:48 Polyethylene Glycol (Miralax) 17 gm HSPRN PRN ORAL Constipation 08/27/17 00:00 09/26/17 00:00 Pravastatin Sodium (Pravachol) 40 mg BEDTIME ORAL 08/20/17 21:00 09/19/17 20:59 08/23/17 21:45 Ranitidine HCl (Zantac) 150 mg DAILY ORAL 08/21/17 09:00 09/20/17 08:59 08/24/17 09:18 Zolpidem Tartrate (Ambien) 5 mg HSPRN PRN ORAL Insomnia 08/20/17 14:45 08/27/17 14:44 LIN TATE Aug 24, 2017 13:10
--- NOTE | 2017-08-24 14:38 | Cardiac Electrophysiology PN ---
Assessment/Plan Assessment/Plan 1. Hypertension. On Toprol-XL 25 mg daily 2. Status post fall with a Left hip fracture.S/P ORIF 08/21/17. The patient has normal left ventricular systolic function. Denies any prior myocardial infarction or congestive heart failure. 3. Hypothyroidism, on Synthroid. 4. Diabetes, on insulin. 5. Anemia. S/P 2 PRBCs. Still no Stool for OB. Subjective Subjective Had 2 units PRBC and expecting DC today. No chest pain or SOB. Objective Last 24 Hour Vital Signs Date Time Temp Pulse Resp B/P (MAP) Pulse Ox O2 Delivery O2 Flow Rate FiO2 08/24/17 12:00 97.8 76 19 106/51 95 Nasal Cannula 2.0 08/24/17 09:00 76 119/50 08/24/17 08:00 98.7 76 19 119/50 98 Room Air 08/24/17 04:31 98.6 66 19 109/55 98 Room Air 3.0 08/24/17 04:20 98.6 08/23/17 23:57 98.6 65 19 111/58 97 Nasal Cannula 2.0 08/23/17 20:35 98.4 68 20 112/53 97 Nasal Cannula 2.0 21 08/23/17 19:59 98.8 72 20 115/49 97 Nasal Cannula 2.0 08/23/17 16:00 98.6 72 18 99/42 94 Room Air Intake and Output 08/24/17 08/25/17 19:00 07:00 Intake Total 590 ml Balance 590 ml Intake Oral 590 ml # Voids 3 Laboratory Tests Test 08/24/17 11:45 White Blood Count 11.9 K/UL (4.8-10.8) H Red Blood Count 2.78 M/UL (4.20-5.40) L Hemoglobin 9.3 G/DL (12.0-16.0) #L Hematocrit 28.0 % (37.0-47.0) #L Mean Corpuscular Volume 101 FL (80-99) H Mean Corpuscular Hemoglobin 33.6 PG (27.0-31.0) H Mean Corpuscular Hemoglobin Concent 33.3 G/DL (32.0-36.0) Red Cell Distribution Width 15.0 % (11.6-14.8) H Platelet Count 177 K/UL (150-450) Mean Platelet Volume 6.8 FL (6.5-10.1) Neutrophils (%) (Auto) 68.9 % (45.0-75.0) Lymphocytes (%) (Auto) 11.9 % (20.0-45.0) L Monocytes (%) (Auto) 11.8 % (1.0-10.0) H Eosinophils (%) (Auto) 6.7 % (0.0-3.0) H Basophils (%) (Auto) 0.7 % (0.0-2.0) Prothrombin Time 8.7 SEC (9.30-11.50) L Prothromb Time International Ratio 0.8 (0.9-1.1) L Activated Partial Thromboplast Time 25 SEC (23-33) Sodium Level 135 MMOL/L (136-145) L Potassium Level 4.4 MMOL/L (3.5-5.1) Chloride Level 103 MMOL/L (98-107) Carbon Dioxide Level 26 MMOL/L (21-32) Anion Gap 6 mmol/L (5-15) Blood Urea Nitrogen 40 mg/dL (7-18) H Creatinine 1.5 MG/DL (0.55-1.30) H Estimat Glomerular Filtration Rate mL/min (>60) Glucose Level 125 MG/DL (74-106) H Calcium Level 8.3 MG/DL (8.5-10.1) L Phosphorus Level 2.8 MG/DL (2.5-4.9) Magnesium Level 2.6 MG/DL (1.8-2.4) H Total Bilirubin 0.3 MG/DL (0.2-1.0) Aspartate Amino Transf (AST/SGOT) 27 U/L (15-37) Alanine Aminotransferase (ALT/SGPT) 28 U/L (12-78) Alkaline Phosphatase 72 U/L (46-116) Total Protein 6.0 G/DL (6.4-8.2) L Albumin 2.7 G/DL (3.4-5.0) L Globulin 3.3 g/dL Albumin/Globulin Ratio 0.8 (1.0-2.7) L Objective HEAD AND NECK: No JVD or carotid bruits. LUNGS: Clear. CARDIOVASCULAR: Regular S1 and S2 with no gallop or murmur. ABDOMEN: Soft. EXTREMITIES: S/P Left hip ORIF VIVIAN MCCONNELL Aug 24, 2017 14:38
[2017-08-24 16:00] VITALS: BP 115/52
--- NOTE | 2017-08-25 13:02 | Discharge Summary ---
Discharge Summary Hospital Course Date of Admission Aug 20, 2017 at 14:00 Date of Discharge Aug 24, 2017 at 16:47 Admitting Diagnosis left hip fracture ISRAEL Pena is a 86 year old female who was admitted on Aug 20, 2017 at 14:00 for Left Hip Fractur Hospital Course dc summary [id number] Discharge Medications Continued Medications: Levothyroxine Sodium* (Levothyroxine Sodium*) 75 Mcg Tablet 75 MCG ORAL DAILY, TAB Take in the morning on an empty stomach, at least 30 minutes before food. Memantine Hcl* (Namenda*) 10 Mg Tablet 10 MG ORAL TWICE A DAY, TAB Metoprolol Succinate* (Metoprolol Succinate*) 25 Mg Tab.er.24h 25 MG ORAL DAILY, TAB Nortriptyline Hcl* (Pamelor*) 25 Mg Capsule 75 MG ORAL DAILY, #10 CAP 0 Refills Pravastatin Sodium (Pravachol) 40 Mg Tablet 40 MG ORAL BEDTIME, TAB Ranitidine Hcl* (Zantac*) 150 Mg Tablet 150 MG ORAL DAILY, #30 TAB 0 Refills Discharge Condition Upon Discharge: stable Discharge Disposition Patient was discharged to SNF Discharge Diagnoses: Amaury (Vivien)Bethany NP Aug 25, 2017 13:02
--- NOTE | 2017-08-25 13:02 | Discharge Summary ---
Discharge Summary Hospital Course Date of Admission Aug 20, 2017 at 14:00 Date of Discharge Aug 24, 2017 at 16:47 Admitting Diagnosis left hip fracture ISRAEL Pena is a 86 year old female who was admitted on Aug 20, 2017 at 14:00 for Left Hip Fractur Hospital Course dc summary [id number] Discharge Medications Continued Medications: Levothyroxine Sodium* (Levothyroxine Sodium*) 75 Mcg Tablet 75 MCG ORAL DAILY, TAB Take in the morning on an empty stomach, at least 30 minutes before food. Memantine Hcl* (Namenda*) 10 Mg Tablet 10 MG ORAL TWICE A DAY, TAB Metoprolol Succinate* (Metoprolol Succinate*) 25 Mg Tab.er.24h 25 MG ORAL DAILY, TAB Nortriptyline Hcl* (Pamelor*) 25 Mg Capsule 75 MG ORAL DAILY, #10 CAP 0 Refills Pravastatin Sodium (Pravachol) 40 Mg Tablet 40 MG ORAL BEDTIME, TAB Ranitidine Hcl* (Zantac*) 150 Mg Tablet 150 MG ORAL DAILY, #30 TAB 0 Refills Discharge Condition Upon Discharge: stable Discharge Disposition Patient was discharged to SNF Discharge Diagnoses: Amaury (Vivien)Bethany NP Aug 25, 2017 13:02
--- NOTE | 2017-08-25 13:02 | Discharge Summary ---
Discharge Summary Hospital Course Date of Admission Aug 20, 2017 at 14:00 Date of Discharge Aug 24, 2017 at 16:47 Admitting Diagnosis left hip fracture ISRAEL Pena is a 86 year old female who was admitted on Aug 20, 2017 at 14:00 for Left Hip Fractur Hospital Course dc summary [id number] Discharge Medications Continued Medications: Levothyroxine Sodium* (Levothyroxine Sodium*) 75 Mcg Tablet 75 MCG ORAL DAILY, TAB Take in the morning on an empty stomach, at least 30 minutes before food. Memantine Hcl* (Namenda*) 10 Mg Tablet 10 MG ORAL TWICE A DAY, TAB Metoprolol Succinate* (Metoprolol Succinate*) 25 Mg Tab.er.24h 25 MG ORAL DAILY, TAB Nortriptyline Hcl* (Pamelor*) 25 Mg Capsule 75 MG ORAL DAILY, #10 CAP 0 Refills Pravastatin Sodium (Pravachol) 40 Mg Tablet 40 MG ORAL BEDTIME, TAB Ranitidine Hcl* (Zantac*) 150 Mg Tablet 150 MG ORAL DAILY, #30 TAB 0 Refills Discharge Condition Upon Discharge: stable Discharge Disposition Patient was discharged to SNF Discharge Diagnoses: Amaury (Vivien)Bethany NP Aug 25, 2017 13:02
--- NOTE | 2017-08-25 21:45 | Discharge Summary 2 SIG ---
DATE OF ADMISSION: 08/20/2017 DATE OF DISCHARGE: 08/24/2017 REASON FOR ADMISSION: 86-year-old female with past medical history of diabetes, hypertension, hypothyroidism, sustained mechanical fall while ambulating to the bathroom in her house. She denied loss of consciousness, blackout, dizziness, lightheadedness, head injury, or trauma. Workup in the emergency department revealed left hip severely comminuted and displaced fracture of the distal femoral neck and intertrochanteric region. The patient was admitted for further management for left femoral neck fracture. HOSPITAL STAY: The patient was admitted to Med/Surg floor. Orthopedic consult was requested along with the pain specialist and Cardiology consult for clearance for surgery. Orthopedics surgeon initially seen and evaluated the patient, and discussed in detail the need for surgery. County Treasurer followed. Echocardiogram revealed preserved ejection fraction and mild aortic stenosis. No congestive heart failure or coronary artery disease. No ischemia on EKG. County Treasurer gave clearance for surgery. The patient undergone open reduction and internal fixation on 08/21/2017. Pain management was addressed and pain was controlled. Pain specialist followed. In addition to current surgery, the patient also had a lumbar degenerative disk disease, lumbar spondylosis, and history of lumbar fusion. Pain management was effective. The patient was started to work with physical therapist and be out of bed as tolerated. DVT prophylaxis started after surgery. Incentive spirometer was at the bedside, and the patient was encouraged to use it while in the bed. Blood pressure was managed with beta-fernandez and was stable. Blood sugar was managed with sliding scale of insulin. Hemoglobin A1c -6.1, at goal. TSH was within normal limits. Current dose of levothyroxine was continued. The patient was started on the diet and was advanced as tolerated. The patient was able to tolerate diet. No nausea. No vomiting. The patient was noted to be anemic with hemoglobin- 6.6 and hematocrit-18.8. The patient received two units of packed red blood cells. Hemoglobin up to 9.3 and hematocrit up to 28. Anemia workup revealed findings consistent with anemia of chronic disease. Monitor counts as outpatient. The patient was also noted to have evidence of acute kidney injury with creatinine of 1.4-1.5 . Renal ultrasound revealed no hydronephrosis and demonstrated normal echogenicity of both kidneys. The patient was cachectic with possible evidence of malnutrition. Dietary evaluation was requested. Nutritional assessment revealed moderate risk for malnutrition. The patient was started on Glucerna and Garcia as recommended by clinical account executive and to be continued at detention facility. The patient was stable for discharge. Pain controlled. Incision clean and dry. She was able to ambulate and voided freely. Tolerated diet . Blood pressure and blood sugar were controlled. Hemoglobin and hematocrit were stable after transfusion. FINAL DIAGNOSES: 1. Status post mechanical fall. 2. Severe comminuted and displaced fracture of the left distal femoral neck and intertrochanteric region. 3. Left hip pain. 4. Status post open reduction and internal fixation of the left hip fracture on 08/21/2017. 5. Diabetes mellitus. 6. Hypertension. 7. Anemia requiring blood transfusion (status post two units packed red blood cells). 8. Possible moderate malnutrition. 9. Hypothyroidism. 10. Lumbar degenerative disk disease. 11. Lumbar spondylosis. 12. History of lumbar fusion. 13. Acute kidney injury/acute tubular necrosis. DISCHARGE MEDICATIONS: See medication reconciliation list. DISCHARGE INSTRUCTIONS: The patient was discharged to detention facility for short-term rehabilitation. Follow up with medical doctor at the facility. Jeff Leigh M.D. [facility] Del [facility]St[facility] ShorePebbles N.POri DR: CLAUDETTE JOB#: [id number] CC: ERIN
--- NOTE | 2017-08-25 21:45 | Discharge Summary 2 SIG ---
DATE OF ADMISSION: 08/20/2017 DATE OF DISCHARGE: 08/24/2017 REASON FOR ADMISSION: 86-year-old female with past medical history of diabetes, hypertension, hypothyroidism, sustained mechanical fall while ambulating to the bathroom in her house. She denied loss of consciousness, blackout, dizziness, lightheadedness, head injury, or trauma. Workup in the emergency department revealed left hip severely comminuted and displaced fracture of the distal femoral neck and intertrochanteric region. The patient was admitted for further management for left femoral neck fracture. HOSPITAL STAY: The patient was admitted to Med/Surg floor. Orthopedic consult was requested along with the pain specialist and Cardiology consult for clearance for surgery. Orthopedics surgeon initially seen and evaluated the patient, and discussed in detail the need for surgery. Prior Authorization Nurse followed. Echocardiogram revealed preserved ejection fraction and mild aortic stenosis. No congestive heart failure or coronary artery disease. No ischemia on EKG. Prior Authorization Nurse gave clearance for surgery. The patient undergone open reduction and internal fixation on 08/21/2017. Pain management was addressed and pain was controlled. Pain specialist followed. In addition to current surgery, the patient also had a lumbar degenerative disk disease, lumbar spondylosis, and history of lumbar fusion. Pain management was effective. The patient was started to work with physical therapist and be out of bed as tolerated. DVT prophylaxis started after surgery. Incentive spirometer was at the bedside, and the patient was encouraged to use it while in the bed. Blood pressure was managed with beta-fernandez and was stable. Blood sugar was managed with sliding scale of insulin. Hemoglobin A1c -6.1, at goal. TSH was within normal limits. Current dose of levothyroxine was continued. The patient was started on the diet and was advanced as tolerated. The patient was able to tolerate diet. No nausea. No vomiting. The patient was noted to be anemic with hemoglobin- 6.6 and hematocrit-18.8. The patient received two units of packed red blood cells. Hemoglobin up to 9.3 and hematocrit up to 28. Anemia workup revealed findings consistent with anemia of chronic disease. Monitor counts as outpatient. The patient was also noted to have evidence of acute kidney injury with creatinine of 1.4-1.5 . Renal ultrasound revealed no hydronephrosis and demonstrated normal echogenicity of both kidneys. The patient was cachectic with possible evidence of malnutrition. Dietary evaluation was requested. Nutritional assessment revealed moderate risk for malnutrition. The patient was started on Glucerna and Garcia as recommended by medical technical writer and to be continued at detention facility. The patient was stable for discharge. Pain controlled. Incision clean and dry. She was able to ambulate and voided freely. Tolerated diet . Blood pressure and blood sugar were controlled. Hemoglobin and hematocrit were stable after transfusion. FINAL DIAGNOSES: 1. Status post mechanical fall. 2. Severe comminuted and displaced fracture of the left distal femoral neck and intertrochanteric region. 3. Left hip pain. 4. Status post open reduction and internal fixation of the left hip fracture on 08/21/2017. 5. Diabetes mellitus. 6. Hypertension. 7. Anemia requiring blood transfusion (status post two units packed red blood cells). 8. Possible moderate malnutrition. 9. Hypothyroidism. 10. Lumbar degenerative disk disease. 11. Lumbar spondylosis. 12. History of lumbar fusion. 13. Acute kidney injury/acute tubular necrosis. DISCHARGE MEDICATIONS: See medication reconciliation list. DISCHARGE INSTRUCTIONS: The patient was discharged to detention facility for short-term rehabilitation. Follow up with medical doctor at the facility. Jeff Leigh M.D. [facility]any Del RioJames [facility] Center[facility] N.POri DR: CLAUDETTE JOB#: [id number] CC: ERIN
--- NOTE | 2017-08-25 21:45 | Discharge Summary 2 SIG ---
DATE OF ADMISSION: 08/20/2017 DATE OF DISCHARGE: 08/24/2017 REASON FOR ADMISSION: 86-year-old female with past medical history of diabetes, hypertension, hypothyroidism, sustained mechanical fall while ambulating to the bathroom in her house. She denied loss of consciousness, blackout, dizziness, lightheadedness, head injury, or trauma. Workup in the emergency department revealed left hip severely comminuted and displaced fracture of the distal femoral neck and intertrochanteric region. The patient was admitted for further management for left femoral neck fracture. HOSPITAL STAY: The patient was admitted to Med/Surg floor. Orthopedic consult was requested along with the pain specialist and Cardiology consult for clearance for surgery. Orthopedics surgeon initially seen and evaluated the patient, and discussed in detail the need for surgery. Teletypesetter followed. Echocardiogram revealed preserved ejection fraction and mild aortic stenosis. No congestive heart failure or coronary artery disease. No ischemia on EKG. Teletypesetter gave clearance for surgery. The patient undergone open reduction and internal fixation on 08/21/2017. Pain management was addressed and pain was controlled. Pain specialist followed. In addition to current surgery, the patient also had a lumbar degenerative disk disease, lumbar spondylosis, and history of lumbar fusion. Pain management was effective. The patient was started to work with physical therapist and be out of bed as tolerated. DVT prophylaxis started after surgery. Incentive spirometer was at the bedside, and the patient was encouraged to use it while in the bed. Blood pressure was managed with beta-fernandez and was stable. Blood sugar was managed with sliding scale of insulin. Hemoglobin A1c -6.1, at goal. TSH was within normal limits. Current dose of levothyroxine was continued. The patient was started on the diet and was advanced as tolerated. The patient was able to tolerate diet. No nausea. No vomiting. The patient was noted to be anemic with hemoglobin- 6.6 and hematocrit-18.8. The patient received two units of packed red blood cells. Hemoglobin up to 9.3 and hematocrit up to 28. Anemia workup revealed findings consistent with anemia of chronic disease. Monitor counts as outpatient. The patient was also noted to have evidence of acute kidney injury with creatinine of 1.4-1.5 . Renal ultrasound revealed no hydronephrosis and demonstrated normal echogenicity of both kidneys. The patient was cachectic with possible evidence of malnutrition. Dietary evaluation was requested. Nutritional assessment revealed moderate risk for malnutrition. The patient was started on Glucerna and Garcia as recommended by nurse infection control and to be continued at group home facility. The patient was stable for discharge. Pain controlled. Incision clean and dry. She was able to ambulate and voided freely. Tolerated diet . Blood pressure and blood sugar were controlled. Hemoglobin and hematocrit were stable after transfusion. FINAL DIAGNOSES: 1. Status post mechanical fall. 2. Severe comminuted and displaced fracture of the left distal femoral neck and intertrochanteric region. 3. Left hip pain. 4. Status post open reduction and internal fixation of the left hip fracture on 08/21/2017. 5. Diabetes mellitus. 6. Hypertension. 7. Anemia requiring blood transfusion (status post two units packed red blood cells). 8. Possible moderate malnutrition. 9. Hypothyroidism. 10. Lumbar degenerative disk disease. 11. Lumbar spondylosis. 12. History of lumbar fusion. 13. Acute kidney injury/acute tubular necrosis. DISCHARGE MEDICATIONS: See medication reconciliation list. DISCHARGE INSTRUCTIONS: The patient was discharged to group home facility for short-term rehabilitation. Follow up with medical doctor at the facility. Jeff Leigh M.D. [facility]any [facility] Hospital[facility] N.POri [facility]: CLAUDETTE JOB#: [id number] CC: ERIN
[2017-08-27] MEDS ORDERED: Miralax 17gm pkt ORAL PRN
== END 2017-08-24 16:47 | DRG 480 ==
LOC: EDBD 13:09 → EMR 13:52 → 3E 14:00 → EDBEDREQ 14:35
PROC: 0QS706Z Reposition Left Upper Femur with Intramedullary Internal Fixation Device, Open Approach (ICD-10-PCS; principal; 2017-08-21 16:15)
PROC: 30233N1 Transfusion of Nonautologous Red Blood Cells into Peripheral Vein, Percutaneous Approach (ICD-10-PCS; 2017-08-23)
DX: S72.142A Displaced intertrochanteric fracture of left femur, initial encounter for closed fracture (principal); N17.0 Acute kidney failure with tubular necrosis; E44.0 Moderate protein-calorie malnutrition; I10 Essential (primary) hypertension; E11.9 Type 2 diabetes mellitus without complications; D64.9 Anemia, unspecified; S72.22XA Displaced subtrochanteric fracture of left femur, initial encounter for closed fracture; Y92.009 Unspecified place in unspecified non-institutional (private) residence as the place of occurrence of the external cause; G30.9 Alzheimer's disease, unspecified; F02.80 Dementia in other diseases classified elsewhere, unspecified severity, without behavioral disturbance, psychotic disturbance, mood disturbance, and anxiety; W19.XXXA Unspecified fall, initial encounter; E89.0 Postprocedural hypothyroidism; Z88.6 Allergy status to analgesic agent; Z88.8 Allergy status to other drugs, medicaments and biological substances; Z79.4 Long term (current) use of insulin
CPT/HCPCS: 36415; 71010; 72192; 73502; 76001; 76775; 80048; 80053; 81001; 82550; 82553; 82607; 82728; 82746; 82747; 82962; 83036; 83540; 83550; 83615; 83735; 84100; 84133; 84300; 84443; 84484; 84550; 85007; 85025; 85044; 85060; 85610; 85651; 85730; 86850; 86900; 86901; 86920; 89050; 93005; 93306; 94003; 94150; 97802; 99285; J1815; J2250; J2405; J3490

== ENCOUNTER 2017-10-09 09:56 | Emergency (ER) | payer MEDICARE ==
[~2017-10-09] VITALS: Ht 162.6 cm; Wt 59.0 kg
[~2017-10-09 09:56] MED LIST: ALPHA LIPOIC AC50 M1 PO; ASPIR 8181 MG ORAL; BIOTIN5000 MCG PO; BROMELAINS500 MG PO; BUPRENORPHINE1 EAC1 TD; DICYCLOMINE HCL10 MG PO; LEVOTHYROXINE75 MCG ORAL; METOPROLOL SUCC25 MG ORAL; MULTIGEN FOLIC1 EACH PO; NAMENDA10 MG ORAL; PAMELOR25 MG ORAL; PRAVACHOL40 MG ORAL; ZANTAC150 MG ORAL
[2017-10-09 09:58] VITALS: BP 153/63
--- NOTE | 2017-10-09 10:17 | Emergency Room Report ---
History of Present Illness General Chief Complaint: Dyspnea/Respdistress Source: Patient, Medical Record, EMS Present Illness HPI 87-year-old female brought in by ambulance with polyuria since last night. Now associated with dysuria. Has diabetes, took insulin last night, glucose 87 on scene per EMS. Patient denies chest pain, shortness of breath, abdominal pain Complaining of pain to left hip, states had hip surgery in July, which is verified by review of the EMR Patient requesting Rhame States she takes Rhame every 6 hours States that Tylenol, ibuprofen, Toradol "don't work" multiple request for narcotics here however states that she does have issues with constipation Allergies: Coded Allergies: GABAPENTIN (Verified Allergy, Unknown, 08/20/17) HYDROCHLOROTHIAZIDE (Verified Allergy, Unknown, 08/20/17) PENTAZOCINE (Verified Allergy, Unknown, 08/20/17) Patient History Past Medical History: other - see history of present illness Past Surgical History: other - hip surgery Pertinent Family History: none Social History: Denies: smoking, alcohol use, drug use Now: No Immunizations: UTD Reviewed Nursing Documentation: PMH: Agreed, PSxH: Agreed Nursing Documentation-PMH Past Medical History: No History, Except For Hx Cardiac Problems: No Hx Hypertension: Yes Hx Diabetes: Yes Hx Cancer: No Hx Neurological Problems: No Review of Systems All Other Systems: negative except mentioned in HPI Physical Exam Vital Signs Date Time Temp Pulse Resp B/P (MAP) Pulse Ox O2 Delivery O2 Flow Rate FiO2 10/09/17 09:37 104 16 184/96 99 Room Air Sp02 EP Interpretation: reviewed, normal General Appearance: normal inspection, well appearing, no apparent distress, alert, GCS 15, non-toxic Head: normocephalic, atraumatic Eyes: bilateral eye PERRL, bilateral eye EOMI ENT: normal ENT inspection, hearing grossly normal, normal pharynx, no angioedema, normal voice, TMs + canals normal, uvula midline, moist mucus membranes Neck: normal inspection, full range of motion, supple, thyroid normal, no meningismus, no bony tend Respiratory: normal inspection, lungs clear, normal breath sounds, no rhonchi, no respiratory distress, no retraction, no accessory muscle use, no wheezing, speaking full sentences Cardiovascular #1: regular rate, rhythm, no edema, no JVD, normal capillary refill Gastrointestinal: normal inspection, normal bowel sounds, non tender, soft, no mass, no peritonitis, non-distended, no guarding, no hernia, no pulsatile mass Genitourinary: no CVA tenderness Musculoskeletal: normal inspection, back normal, normal range of motion, non- tender, no calf tenderness, pelvis stable, Aziza's Sign negative, other - no sign of infection at left hip Neurologic: normal inspection, alert, oriented x3, responsive, documentation writer III-XII nml as tested, motor strength/tone normal, cerebellar normal, normal gait, speech normal Psychiatric: normal inspection, judgement/insight normal, mood/affect normal, no suicidal/homicidal ideation, no delusions Skin: normal inspection, normal color, no rash Lymphatic: normal inspection, no adenopathy Medical Decision Making Diagnostic Impression: Primary Impression: Polyuria Additional Impressions: Left hip pain Narcotic dependence ER Course Labs significant for possible UTI We'll treat with Rx Macrobid, given polyuria, symptoms Multiple requests for pain medication from patient and - very concerned for narcotic dependence states patient does have a bowel regimen at home that is over-the- counter Advised to followup with PMD or orthopedist for pain management referral if severe pain continues glucose normal on multiple checks - low suspicion that hyperglycemia is contributing to polyuria ER course: Patient has remained stable during ED stay. Patient is to be discharged to home. Prescriptions given are macrobid Patient is instructed to follow up with their primary care doctor within 5 days. Patient is instructed to follow up with orthopedist in 3 days Strict return precautions discussed with patient such as fever, chills, worsening/severe pain, nausea, vomiting, which may indicate severe illness. Patient verbalizes understanding and agrees with plan. Please note that this Emergency Department Report was dictated using [employer]colix[employer] order clerk technology software, occasionally this can lead to erroneous entry secondary to interpretation by the dictation equipment Rhythm Strip Diag. Results EP Interpretation: yes Rate: 84 Rhythm: NSR, no PVC's, no ectopy Last Vital Signs Date Time Temp Pulse Resp B/P (MAP) Pulse Ox O2 Delivery O2 Flow Rate FiO2 10/09/17 09:37 104 16 184/96 99 Room Air Status: improved Disposition: HOME, SELF-CARE Scripts Nitrofurantoin Monohyd/M-Cryst* (MACROBID 100 MG*) 100 Mg Capsule 100 MG ORAL EVERY 12 HOURS for 7 Days, #14 CAP Prov: ALFREDA SALES M.D. 10/09/17 ALFREDA SALES M.D. Oct 09, 2017 10:17
[2017-10-09 10:26] LABS: BASOPHILS % (AUTO) 0.9 % (0.0-2.0); EOSINOPHILS % (AUTO) 1.2 % (0.0-3.0); LYMPHOCYTES % (AUTO) 18.2 % (20.0-45.0); MEAN CORPUSCULAR HGB CONC 31.3 G/DL (32.0-36.0); MEAN CORPUSCULAR VOLUME 106 FL (80-99); MEAN PLATELET VOLUME 5.5 FL (6.5-10.1); MONOCYTES % (AUTO) 9.8 % (1.0-10.0); PLATELET COUNT 531 K/UL (150-450); RED BLOOD COUNT 4.17 M/UL (4.20-5.40); RED CELL DISTRIBUTION WIDTH 13.7 % (11.6-14.8); WHITE BLOOD COUNT 9.3 K/UL (4.8-10.8)
[2017-10-09] MEDS: Tylenol #3 tab (300mg/30mg) ORAL ONE (10:30)
[2017-10-09 10:36] LABS: APPEARANCE,URINE CLEAR; KETONES,URINE NEGATIVE (NEGATIVE); LEUKOCYTE ESTERASE ,URINE 1+ (NEGATIVE); NITRITE,URINE NEGATIVE (NEGATIVE); PH,URINE 5 (4.5-8.0); PROTEIN,URINE 3+ (NEGATIVE); UROBILINOGEN,URINE 1 MG/DL (0.0-1.0)
[2017-10-09 10:45] LABS: ANION GAP 9 mmol/L (5-15); CALCIUM 10.2 MG/DL (8.5-10.1); CARBON DIOXIDE 28 MMOL/L (21-32); CHLORIDE 103 MMOL/L (98-107); CREATININE 1.3 MG/DL (0.55-1.30); POTASSIUM 3.4 MMOL/L (3.5-5.1); SODIUM 140 MMOL/L (136-145)
[2017-10-09 10:49] LABS: ALANINE AMINOTRANSFERASE 18 U/L (12-78); ASPARTATE AMINO TRANSFERASE 23 U/L (15-37); TOTAL PROTEIN 8.7 G/DL (6.4-8.2)
[2017-10-09 10:54] LABS: BACTERIA,URINE FEW /HPF; HYALINE CASTS, URINE 0-2 /LPF; MUCUS,URINE FEW /LPF (NONE/OCC); SQUAMOUS EPITHELIAL CELL,UR FEW /LPF (NONE/OCC)
[2017-10-09] MEDS ORDERED: NITROFURANTOIN100 M2 ORAL (11:56)
[2017-10-09] MEDS: Norco 5mg/325mg tab ORAL ONE (12:33)
[2017-10-09 12:53] VITALS: BP 188/73
== END 2017-10-09 12:43 | disposition home or self-care (01) ==
LOC: EDBD 09:56 → EMR 10:50
DX: R35.8 Other polyuria (principal); R30.0 Dysuria; E11.9 Type 2 diabetes mellitus without complications; Z79.4 Long term (current) use of insulin; Z88.8 Allergy status to other drugs, medicaments and biological substances; I10 Essential (primary) hypertension; M25.552 Pain in left hip; F19.20 Other psychoactive substance dependence, uncomplicated
CPT/HCPCS: 36415; 80053; 81003; 82962; 85025; 99282

== ENCOUNTER 2017-10-14 13:23 | Inpatient (IN) | payer MEDICARE ==
[~2017-10-14] VITALS: Ht 162.6 cm; Wt 63.5 kg
[~2017-10-14 13:23] MED LIST changes: +NITROFURANTOIN100 M2 ORAL
[2017-10-14 13:27] VITALS: BP 170/86
[2017-10-14] MEDS ORDERED: NS 1000ml 1,900 ML IVLG ONE (13:45)
[2017-10-14 14:32] LABS: ANION GAP 6 mmol/L (5-15); CALCIUM 9.3 MG/DL (8.5-10.1); CARBON DIOXIDE 28 MMOL/L (21-32); CHLORIDE 103 MMOL/L (98-107); CREATININE 1.3 MG/DL (0.55-1.30); POTASSIUM 4.1 MMOL/L (3.5-5.1); SODIUM 137 MMOL/L (136-145)
[2017-10-14 14:33] LABS: BASOPHILS % (AUTO) 1.4 % (0.0-2.0); EOSINOPHILS % (AUTO) 1.4 % (0.0-3.0); MEAN CORPUSCULAR HEMOGLOBIN 33.1 PG (27.0-31.0); MEAN CORPUSCULAR HGB CONC 31.3 G/DL (32.0-36.0); MEAN CORPUSCULAR VOLUME 106 FL (80-99); MEAN PLATELET VOLUME 6.2 FL (6.5-10.1); MONOCYTES % (AUTO) 15.2 % (1.0-10.0); NEUTROPHILS % (AUTO) 63.1 % (45.0-75.0); PLATELET COUNT 409 K/UL (150-450); RED BLOOD COUNT 3.76 M/UL (4.20-5.40); RED CELL DISTRIBUTION WIDTH 13.5 % (11.6-14.8); WHITE BLOOD COUNT 6.6 K/UL (4.8-10.8)
[2017-10-14 14:45] LABS: ALANINE AMINOTRANSFERASE 19 U/L (12-78); ALBUMIN/GLOBULIN RATIO 1.2 (1.0-2.7); ASPARTATE AMINO TRANSFERASE 23 U/L (15-37); CKMB 10.3 NG/ML (0.0-3.6); TOTAL PROTEIN 7.2 G/DL (6.4-8.2)
[2017-10-14] MEDS ORDERED: Tylenol #3 tab (300mg/30mg) ORAL ONE (14:45)
[2017-10-14 14:55] LABS: REFLEX LACTIC ACID YES OR NO YES
--- NOTE | 2017-10-14 15:03 | Emergency Room Report ---
History of Present Illness General Chief Complaint: Generalized Weakness Source: Medical Record Present Illness HPI 87-year-old female presents ED for evaluation. Patient brought in by generator mechanic. States she's been feeling dizzy and weak. States that she normally takes Ambien at night for insomnia. States she took her Ambien last night as usual but was still unable to sleep. Then took melatonin and [place]. Patient states since taking the medications be she's been feeling dizzy and weak. Sometimes unsteady. Denies any headache. Denies chest pain or shortness of breath. Denies fevers chills. No other aggravating relieving factors. Denies any other associated symptoms Allergies: Coded Allergies: GABAPENTIN (Verified Allergy, Unknown, 08/20/17) HYDROCHLOROTHIAZIDE (Verified Allergy, Unknown, 08/20/17) PENTAZOCINE (Verified Allergy, Unknown, 08/20/17) Uncoded Allergies: NEUROTIN (Allergy, Unknown, 10/14/17) Patient History Past Medical History: none Past Surgical History: none Pertinent Family History: none Social History: Denies: smoking, alcohol use, drug use Now: No Immunizations: UTD Reviewed Nursing Documentation: PMH: Agreed, PSxH: Agreed Nursing Documentation-PMH Past Medical History: No History, Except For Hx Hypertension: Yes Hx Diabetes: Yes Hx Cancer: No Hx Neurological Problems: No Review of Systems All Other Systems: negative except mentioned in HPI Physical Exam Vital Signs Date Time Temp Pulse Resp B/P (MAP) Pulse Ox O2 Delivery O2 Flow Rate FiO2 10/14/17 13:07 98.2 90 18 170/86 98 Room Air Sp02 EP Interpretation: reviewed, normal General Appearance: no apparent distress, alert, GCS 15, non-toxic Head: normocephalic, atraumatic Eyes: bilateral eye normal inspection, bilateral eye PERRL ENT: hearing grossly normal, normal pharynx, no angioedema, normal voice Neck: full range of motion, supple/symm/no masses Respiratory: chest non-tender, lungs clear, normal breath sounds, speaking full sentences Cardiovascular #1: regular rate, rhythm, no edema Cardiovascular #2: 2+ carotid (R), 2+ carotid (L), 2+ radial (R), 2+ radial (L) , 2+ dorsalis pedis (R), 2+ dorsalis pedis (L) Gastrointestinal: normal bowel sounds, non tender, soft, non-distended, no guarding, no rebound Rectal: deferred Genitourinary: normal inspection, no CVA tenderness Musculoskeletal: back normal, gait/station normal, normal range of motion, non- tender Neurologic: alert, oriented x3, responsive, motor strength/tone normal, sensory intact, speech normal Psychiatric: judgement/insight normal, memory normal, mood/affect normal, no suicidal/homicidal ideation Reflexes: 3+ bicep (R), 3+ bicep (L), 3+ tricep (R), 3+ tricep (L), 3+ knee (R) , 3+ knee (L) Skin: normal color, no rash, warm/dry, well hydrated Lymphatic: no adenopathy Medical Decision Making Diagnostic Impression: Primary Impression: Dizziness Additional Impression: Elevated troponin ER Course Hospital Course 87-year-old female presents ED complaining of dizziness, weakness. Started after taking several sleep medications Differential diagnoses include: VA/unstable angina, dehydration, overdose Clinical course Patient placed on stretcher. on cardiac rehabilitation program director. After initial history and physical I ordered labs, EKG, chest x-ray, IVFs labs reviewed- no leukocytosis, hb/hct stable, electrolytes ok, trop 0.407, UA negative, lactate > 2 EKG - NSR, no acute ischemic changes interpreted by me Chest x-ray- unremarkable Patient denies any chest pain. Discussed case with covering physician of PMD Dr Corona Freeman. Recommended that patient be admitted for IV hydration and observation Case discussed with Dr. Leigh and he agreed to accept the patient to his service for further care and support I. I feel this is a highly complex case requiring extensive working including EKG/Rhythm strip, Xray/CT/US, Blood/urine lab work, repeat exams while in ED, and administration of strong opiates/narcotics for pain control, admission to hospital or close patient follow up. Diagnosis - dizziness, elevated troponin admitted to telemetry in serious condition Labs Test 10/14/17 14:00 White Blood Count 6.6 K/UL (4.8-10.8) Red Blood Count 3.76 M/UL (4.20-5.40) Hemoglobin 12.5 G/DL (12.0-16.0) Hematocrit 39.8 % (37.0-47.0) Mean Corpuscular Volume 106 FL (80-99) Mean Corpuscular Hemoglobin 33.1 PG (27.0-31.0) Mean Corpuscular Hemoglobin Concent 31.3 G/DL (32.0-36.0) Red Cell Distribution Width 13.5 % (11.6-14.8) Platelet Count 409 K/UL (150-450) Mean Platelet Volume 6.2 FL (6.5-10.1) Neutrophils (%) (Auto) 63.1 % (45.0-75.0) Lymphocytes (%) (Auto) 19.0 % (20.0-45.0) Monocytes (%) (Auto) 15.2 % (1.0-10.0) Eosinophils (%) (Auto) 1.4 % (0.0-3.0) Basophils (%) (Auto) 1.4 % (0.0-2.0) Sodium Level 137 MMOL/L (136-145) Potassium Level 4.1 MMOL/L (3.5-5.1) Chloride Level 103 MMOL/L (98-107) Carbon Dioxide Level 28 MMOL/L (21-32) Anion Gap 6 mmol/L (5-15) Blood Urea Nitrogen 33 mg/dL (7-18) Creatinine 1.3 MG/DL (0.55-1.30) Estimat Glomerular Filtration Rate mL/min (>60) Glucose Level 140 MG/DL (74-106) Lactic Acid Level 2.40 mmol/L (0.66-2.22) Calcium Level 9.3 MG/DL (8.5-10.1) Total Bilirubin 0.2 MG/DL (0.2-1.0) Aspartate Amino Transf (AST/SGOT) 23 U/L (15-37) Alanine Aminotransferase (ALT/SGPT) 19 U/L (12-78) Alkaline Phosphatase 102 U/L (46-116) Total Creatine Kinase 121 U/L (26-308) Creatine Kinase MB 10.3 NG/ML (0.0-3.6) Creatine Kinase MB Relative Index 8.5 Troponin I 0.407 ng/mL (0.000-0.056) Total Protein 7.2 G/DL (6.4-8.2) Albumin 3.9 G/DL (3.4-5.0) Globulin 3.3 g/dL Albumin/Globulin Ratio 1.2 (1.0-2.7) EKG Diagnostic Results Rate: normal Rhythm: NSR ST Segments: no acute changes Rhythm Strip Diag. Results EP Interpretation: yes Rhythm: NSR, no PVC's, no ectopy Chest X-Ray Diagnostic Results Chest X-Ray Diagnostic Results : Chest X-Ray Ordered: Yes # of Views/Limited/Complete: 1 View Indication: Other - dizziness Interpretation: no consolidation, no effusion, no pneumothorax, no acute cardiopulmonary disease Impression: Other - hyperinflated lungs Electronically Signed by: Electronically signed by Moses Foster MD Last Vital Signs Date Time Temp Pulse Resp B/P (MAP) Pulse Ox O2 Delivery O2 Flow Rate FiO2 10/14/17 13:27 18 170/86 98 Room Air 10/14/17 13:07 98.2 90 Status: improved Disposition: ADMITTED INPATIENT Condition: Serious MOSES FOSTER M.D. Oct 14, 2017 15:03
--- NOTE | 2017-10-14 15:32 | Diagnostic Imaging Report ---
Indication: Reason For Exam: WEAK Technique: One view of the chest Comparison: 08/20/2017 Findings: Central bronchial wall thickening is again demonstrated. The lungs and pleural spaces are otherwise clear. A power pack overlies the left chest. This could tear pathology. The heart size is normal. Impression: No acute process
[2017-10-14 15:48] VITALS: BP 172/93
[2017-10-14 16:33] LABS: APPEARANCE,URINE CLEAR; KETONES,URINE 1+ (NEGATIVE); LEUKOCYTE ESTERASE ,URINE 1+ (NEGATIVE); NITRITE,URINE NEGATIVE (NEGATIVE); PH,URINE 6 (4.5-8.0); PROTEIN,URINE 2+ (NEGATIVE); UROBILINOGEN,URINE 1 MG/DL (0.0-1.0)
[2017-10-14 16:40] LABS: RBC,URINE 0-2 /HPF (0 - 2); WBC,URINE 0-2 /HPF (0 - 2)
[2017-10-14] MEDS ORDERED: Norco 5mg/325mg tab ORAL ONE (17:15)
[2017-10-14 18:16] VITALS: BP 141/62
[2017-10-14] MEDS ORDERED: Nitroglycerin Subl 0.4mg tab SL PRN (19:45)
[2017-10-14] MEDS: Norco 7.5mg/325mg tab ORAL PRN (20:12)
[2017-10-14 20:30] VITALS: BP 158/77
[2017-10-14 20:50] VITALS: BP 167/81
[2017-10-14] MEDS ORDERED: METFORMIN HCL500 M5 PO (20:51)
[2017-10-14] MEDS ORDERED: metFORMIN 500mg tab ORAL SCH (21:00)
[2017-10-14] MEDS ORDERED: Fleet's Mineral Oil Enema RECTAL ONE (21:30)
[2017-10-14] MEDS ORDERED: Fleet's Enema 133ml RECTAL ONE (22:15)
[2017-10-14] MEDS: Memantine 10mg tab ORAL SCH (22:33)
[2017-10-14] MEDS: Nortriptyline 25mg cap ORAL SCH (22:33)
[2017-10-14] MEDS: Heparin 5000 units/ml inj SUBQ SCH (22:34)
[2017-10-14] MEDS: Nitrofurantoin Macrocrystal 50mg cap ORAL SCH (23:59)
[2017-10-15] MEDS ORDERED: Dicyclomine 10mg Cap ORAL SCH ×2
[2017-10-15 00:41] VITALS: BP 163/81
[2017-10-15] MEDS: Tylenol #3 tab (300mg/30mg) ORAL PRN ×2 (01:58→12:53)
[2017-10-15 04:42] VITALS: BP 142/78
[2017-10-15] MEDS: Heparin 5000 units/ml inj SUBQ SCH ×3 (06:20→21:55)
[2017-10-15] MEDS ORDERED: Metoprolol Succinate XL 25mg tab ORAL SCH (09:00)
[2017-10-15] MEDS: Nitrofurantoin Macrocrystal 50mg cap ORAL SCH (09:07)
[2017-10-15 09:09] LABS: BASOPHILS % (AUTO) 0.8 % (0.0-2.0); EOSINOPHILS % (AUTO) 1.8 % (0.0-3.0); MEAN CORPUSCULAR HEMOGLOBIN 34.2 PG (27.0-31.0); MEAN CORPUSCULAR HGB CONC 32.4 G/DL (32.0-36.0); MEAN CORPUSCULAR VOLUME 105 FL (80-99); MEAN PLATELET VOLUME 5.9 FL (6.5-10.1); MONOCYTES % (AUTO) 10.7 % (1.0-10.0); NEUTROPHILS % (AUTO) 66.7 % (45.0-75.0); PLATELET COUNT 378 K/UL (150-450); RED BLOOD COUNT 3.51 M/UL (4.20-5.40); RED CELL DISTRIBUTION WIDTH 13.5 % (11.6-14.8)
[2017-10-15] MEDS: Aspirin EC 81mg tab ORAL SCH (09:09)
[2017-10-15] MEDS: Memantine 10mg tab ORAL SCH ×2 (09:14→18:34)
[2017-10-15 09:27] LABS: ANION GAP 10 mmol/L (5-15); CALCIUM 8.7 MG/DL (8.5-10.1); CARBON DIOXIDE 27 MMOL/L (21-32); CHLORIDE 104 MMOL/L (98-107); CREATININE 1.3 MG/DL (0.55-1.30); MAGNESIUM 1.7 MG/DL (1.8-2.4); PHOSPHORUS 4.4 MG/DL (2.5-4.9); POTASSIUM 3.5 MMOL/L (3.5-5.1); SODIUM 141 MMOL/L (136-145)
--- NOTE | 2017-10-15 15:12 | History & Physical ---
History and Physical History & Physicial Jeff Leigh MD Oct 15, 2017 15:12
[2017-10-15] MEDS: Norco 7.5mg/325mg tab ORAL PRN ×2 (16:09→22:18)
[2017-10-15] MEDS: NS w/KCl 20mEq 1,000 ML IV SCH (18:34)
[2017-10-15 20:50] VITALS: BP 150/78
[2017-10-15] MEDS: Carvedilol 6.25mg Tab ORAL SCH (21:48)
[2017-10-15] MEDS: Nortriptyline 25mg cap ORAL SCH (21:51)
--- NOTE | 2017-10-15 22:45 | History and Physical Report ---
DATE OF ADMISSION: 10/14/2017 CHIEF COMPLAINT: Weakness. HISTORY OF PRESENT ILLNESS: This is an 87-year-old female with past medical history significant for diabetic type 2 with diabetic polyneuropathy, hypertension, dyslipidemia and history of left hip fracture, status post ORIF, who presented to the hospital accompanied with the caregiver after it was found the patient feels dizzy and weak. The patient normally takes Ambien at night for sleep. However, she took Ambien and was not responding and then she took the melatonin and senna and that did not respond. The patient became dizzy and weak, more confused than usual and sometimes unsteady. Shortly after initial evaluation in the emergency, the patient was admitted to the hospital with severe dizziness and weakness, possible volume depletion, and dehydration as well as atypical chest pain. The patient denies any shortness of breath. Denies any headache. Denies any double vision. Complained about nausea. Denies any fever or chills. Denies any cough. Denies any flu-like symptoms. MEDICATIONS: Medications at home is significant for alpha-lipoprotein acid, aspirin, Biotene and bromelain. The patient is on , dicyclomine, iron, levothyroxine, Namenda, metformin, metoprolol, nitrofurantoin, nortriptyline, Pravachol, Zantac and ranitidine. ALLERGIES: To gabapentin, hydrochlorothiazide and pentazocine as well as Neurontin, which is same as gabapentin. SOCIAL HISTORY: Denies any smoking, alcohol, or drugs. She lives with her . FAMILY HISTORY: Father with history of kidney disease and from sequelae of that, and heart disease and stroke runs in the parents. REVIEW OF SYSTEMS: Mostly as above. Denies any dysuria, frequency, or hematuria. Complained about weakness and nausea. Denies any hemoptysis or hematochezia. Denies any suicidal or homicidal ideation. Denies any loss of consciousness. Denies any double vision. Denies any seizure activity. PHYSICAL EXAMINATION: VITAL SIGNS: On admission, temperature 98.2, pulse of 90, respirations 18 and blood pressure 170/86. GENERAL: The patient is awake, responsive and anxious. HEAD AND NECK: Pupils reactive to light. Extraocular movements intact. NECK: Supple. No JVD. LUNGS: Good air entry. No wheezing or rales. HEART: S1 and S2. Regular rhythm. Normal gallop. ABDOMEN: Soft, nondistended, and nontender. Positive bowel sounds. EXTREMITIES: No cyanosis, clubbing, or edema. NEUROLOGIC: Cranial nerves II through XII grossly intact. Motor is 5/5 in all extremities. Gait is intact. LABORATORY DATA: On admission significant for sodium 137, potassium 4.1, chloride 103, bicarbonate 28, BUN 33, creatinine 1.3, glucose is 140 and calcium is 9.3. Total bilirubin of 0.2. Troponin is 0.407. Lactic acid is 2.40. WBC of 6.6, hemoglobin 12, hematocrit 39, and platelet is 409,000. Urinalysis +2 protein, +1 ketone, +1 leukocyte, otherwise negative. No nitrite. The patient had a chest x-ray, no acute cardiopulmonary disease. EKG was noted to be normal sinus rhythm with ventricular rate of 87. No ST elevation. No T-wave inversion. ASSESSMENT: 1. Dehydration. 2. Severe weakness. 3. Mild elevation of the lactic acidosis. 4. Diabetes type 2 with diabetic neuropathy. 5. Hypertension. 6. Dyslipidemia. 7. Hypovolemia with acute kidney injury with acute tubular necrosis. PLAN: Admit the patient to telemetry. We will follow up with IV hydration. Monitor laboratory. Accu-Chek with sliding scale. PT evaluation. Code status is Full Code. DVT prophylaxis. Heparin subcutaneous. We will resume home medication. Jeff Leigh M.D. DR: DYLON JOB#: [id number] CC:
[2017-10-16] MEDS: Tylenol #3 tab (300mg/30mg) ORAL PRN ×3 (00:07→15:15)
[2017-10-16 00:40] VITALS: BP 138/64
[2017-10-16] MEDS: Norco 7.5mg/325mg tab ORAL PRN ×3 (04:14→18:16)
[2017-10-16 04:44] VITALS: BP 140/67
[2017-10-16] MEDS: Heparin 5000 units/ml inj SUBQ SCH ×3 (06:24→21:33)
[2017-10-16] MEDS: NS w/KCl 20mEq 1,000 ML IV SCH ×2 (06:50→18:18)
[2017-10-16 08:00] VITALS: BP 175/79
[2017-10-16 08:22] LABS: BASOPHILS % (AUTO) 1.1 % (0.0-2.0); EOSINOPHILS % (AUTO) 4.8 % (0.0-3.0); LYMPHOCYTES % (AUTO) 27.6 % (20.0-45.0); MEAN CORPUSCULAR HEMOGLOBIN 32.6 PG (27.0-31.0); MEAN CORPUSCULAR HGB CONC 31.2 G/DL (32.0-36.0); MEAN CORPUSCULAR VOLUME 105 FL (80-99); MEAN PLATELET VOLUME 6.1 FL (6.5-10.1); NEUTROPHILS % (AUTO) 54.5 % (45.0-75.0); PLATELET COUNT 359 K/UL (150-450); RED BLOOD COUNT 3.57 M/UL (4.20-5.40); RED CELL DISTRIBUTION WIDTH 13.7 % (11.6-14.8); WHITE BLOOD COUNT 6.4 K/UL (4.8-10.8)
[2017-10-16 08:34] LABS: ANION GAP 7 mmol/L (5-15); CALCIUM 7.9 MG/DL (8.5-10.1); CARBON DIOXIDE 26 MMOL/L (21-32); CHLORIDE 105 MMOL/L (98-107); MAGNESIUM 2.1 MG/DL (1.8-2.4); PHOSPHORUS 3.5 MG/DL (2.5-4.9); POTASSIUM 3.8 MMOL/L (3.5-5.1); SODIUM 138 MMOL/L (136-145)
[2017-10-16] MEDS: Aspirin EC 81mg tab ORAL SCH (08:56)
[2017-10-16] MEDS: Carvedilol 6.25mg Tab ORAL SCH ×2 (08:56→21:30)
[2017-10-16] MEDS: Memantine 10mg tab ORAL SCH ×2 (08:57→18:16)
[2017-10-16 12:00] VITALS: BP 151/82
[2017-10-16] MEDS ORDERED: ALPRAZolam 0.25mg tab ORAL PRN ×2 (12:30→17:30)
--- NOTE | 2017-10-16 14:16 | Internal Med Progress Note ---
Subjective Physician Name Jeff Leigh Attending Physician Jeff Leigh MD Current Medications Medications (Trade) Dose Ordered Sig/Lesa Route PRN Reason Start Time Stop Time Status Last Admin Dose Admin Acetaminophen/ Codeine Phosphate (Tylenol #3) 1 tab Q6H PRN ORAL Moderate Pain (Pain Scale 4-6) 10/14/17 19:45 10/21/17 19:44 10/16/17 08:57 Acetaminophen/ Hydrocodone Bitart ([place] 7.5/325) 1 ea Q6H PRN ORAL Severe Pain (Pain Scale 7-10) 10/14/17 19:45 10/21/17 19:44 10/16/17 10:21 Alprazolam (Xanax) 0.25 mg Q6H PRN ORAL For Anxiety 10/16/17 12:30 10/23/17 12:29 10/16/17 13:07 Aspirin (Ecotrin) 81 mg DAILY ORAL 10/15/17 09:00 11/14/17 08:59 10/16/17 08:56 Carvedilol (Coreg) 6.25 mg EVERY 12 HOURS ORAL 10/15/17 21:00 11/14/17 20:59 10/16/17 08:56 Heparin Sodium (Porcine) (Heparin 5000 units/ml) 5,000 units EVERY 8 HOURS SUBQ 10/14/17 22:00 11/13/17 21:59 10/16/17 06:24 Levothyroxine Sodium (Synthroid) 75 mcg ACBREAKFAST ORAL 10/15/17 06:30 11/14/17 06:29 10/16/17 06:22 Memantine (Namenda) 10 mg TWICE A DAY ORAL 10/14/17 21:00 11/13/17 20:59 10/16/17 08:57 Nitroglycerin (Ntg) 0.4 mg Q5MIN PRN SL Prn Chest Pain 10/14/17 19:45 11/13/17 19:44 Nortriptyline HCl (Pamelor) 75 mg QHS ORAL 10/14/17 21:00 11/13/17 20:59 10/15/17 21:51 Ondansetron HCl (Zofran) 4 mg Q6H PRN IV Nausea & Vomiting 10/15/17 15:00 11/14/17 14:59 10/16/17 10:19 Pravastatin Sodium (Pravachol) 40 mg BEDTIME ORAL 10/14/17 21:00 11/13/17 20:59 10/15/17 21:48 Ranitidine HCl (Zantac) 150 mg DAILY ORAL 10/15/17 09:00 11/14/17 08:59 10/16/17 08:57 Sodium Chloride 1,000 ml @ 75 mls/hr [id number] IV 10/15/17 16:30 11/14/17 16:29 10/16/17 06:50 Allergies: Coded Allergies: GABAPENTIN (Verified Allergy, Unknown, 08/20/17) HYDROCHLOROTHIAZIDE (Verified Allergy, Unknown, 08/20/17) PENTAZOCINE (Verified Allergy, Unknown, 08/20/17) Uncoded Allergies: NEUROTIN (Allergy, Unknown, 10/14/17) Subjective awake, alert, responsive, C/O LLQ abdominal pain Objective Last Vital Signs Date Time Temp Pulse Resp B/P (MAP) Pulse Ox O2 Delivery O2 Flow Rate FiO2 10/16/17 08:56 72 175/79 10/16/17 08:00 97.9 18 98 Room Air Laboratory Tests Test 10/16/17 07:45 White Blood Count 6.4 K/UL (4.8-10.8) Red Blood Count 3.57 M/UL (4.20-5.40) L Hemoglobin 11.6 G/DL (12.0-16.0) L Hematocrit 37.3 % (37.0-47.0) Mean Corpuscular Volume 105 FL (80-99) H Mean Corpuscular Hemoglobin 32.6 PG (27.0-31.0) H Mean Corpuscular Hemoglobin Concent 31.2 G/DL (32.0-36.0) L Red Cell Distribution Width 13.7 % (11.6-14.8) Platelet Count 359 K/UL (150-450) Mean Platelet Volume 6.1 FL (6.5-10.1) L Neutrophils (%) (Auto) 54.5 % (45.0-75.0) Lymphocytes (%) (Auto) 27.6 % (20.0-45.0) Monocytes (%) (Auto) 12.0 % (1.0-10.0) H Eosinophils (%) (Auto) 4.8 % (0.0-3.0) H Basophils (%) (Auto) 1.1 % (0.0-2.0) Sodium Level 138 MMOL/L (136-145) Potassium Level 3.8 MMOL/L (3.5-5.1) Chloride Level 105 MMOL/L (98-107) Carbon Dioxide Level 26 MMOL/L (21-32) Anion Gap 7 mmol/L (5-15) Blood Urea Nitrogen 17 mg/dL (7-18) Creatinine 1.0 MG/DL (0.55-1.30) Estimat Glomerular Filtration Rate mL/min (>60) Glucose Level 105 MG/DL (74-106) Calcium Level 7.9 MG/DL (8.5-10.1) L Phosphorus Level 3.5 MG/DL (2.5-4.9) Magnesium Level 2.1 MG/DL (1.8-2.4) Microbiology Date/Time Source Procedure Growth Status 10/14/17 14:00 Blood Blood Culture - Preliminary NO GROWTH AFTER 24 HOURS Resulted 10/14/17 13:45 Blood Blood Culture - Preliminary NO GROWTH AFTER 24 HOURS Resulted Intake and Output 10/15/17 10/16/17 19:00 07:00 Intake Total 600 ml 925 ml Output Total 300 ml Balance 600 ml 625 ml Intake Oral 500 ml IV Total 100 ml 925 ml Output Urine Total 300 ml # Voids 5 Objective GENERAL: The patient is awake, responsive and anxious. HEAD AND NECK: Pupils reactive to light. Extraocular movements intact. NECK: Supple. No JVD. LUNGS: Good air entry. No wheezing or rales. HEART: S1 and S2. Regular rhythm. No Murmur. ABDOMEN: Soft, nondistended, and LLQ tenderness. Positive bowel sounds. EXTREMITIES: No cyanosis, clubbing, or edema. NEUROLOGIC: Cranial nerves II through XII grossly intact. Motor is 5/5 in all extremities. Gait is intact. Assessment/Plan Assessment/Plan ASSESSMENT: 1. Dehydration. 2. Severe weakness. 3. Mild elevation of the lactic acidosis. 4. Diabetes type 2 with diabetic neuropathy. 5. Hypertension. 6. Dyslipidemia. 7. Hypovolemia with acute kidney injury with acute tubular necrosis. 8. LLQ abdominal pain PLAN: DC telemetry. IV hydration. Accu-Chek with sliding scale. PT evaluation. Code status is Full Code. DVT prophylaxis: Heparin SQ CT abdominal and pelvic Jeff Leigh MD Oct 16, 2017 14:16
[2017-10-16 16:00] VITALS: BP 172/77
[2017-10-16] MEDS ORDERED: Tylenol #3 tab (300mg/30mg) ORAL PRN (17:30)
[2017-10-16] MEDS ORDERED: Nitroglycerin Subl 0.4mg tab SL PRN (17:30)
[2017-10-16 20:00] VITALS: BP 121/62
[2017-10-16] MEDS ORDERED: Nortriptyline 25mg cap ORAL SCH (21:00)
--- NOTE | 2017-10-16 22:00 | Consultation ---
DATE OF CONSULTATION: 10/14/2017 HISTORY OF PRESENT ILLNESS: This is an 87-year-old female with a history of anxiety disorder, who has been admitted to the hospital for medical stabilization. The patient presents with anxiety, irritable mood, weakness and at times agitated. PAST PSYCHIATRIC HISTORY: She has a history of anxiety disorder, has been treated with Xanax. PAST MEDICAL HISTORY: She has multiple medical problems including diabetes, acute tubular necrosis, dementia, hypertension, diabetes and hip fractures. SUBSTANCE ABUSE HISTORY: No known history of illicit drug use or alcohol. MENTAL STATUS EXAMINATION: The patient is alert and oriented times self, place, and situation. The patient is disheveled. Mood is dysphoric. Affect is constricted, congruent with mood. Thought process is linear. Thought content, no suicidal or homicidal ideations. ASSESSMENT: AXIS I Anxiety disorder and depression. AXIS II Deferred. AXIS III As above. AXIS IV Low. AXIS V Global assessment of functioning is 20. PLAN: 1. The patient will be continued on current medication. 2. Provide the patient with supportive therapy and reality orientation. Pop Miller M.D. DR: COREEN JOB#: [id number] CC:
[2017-10-17] VITALS: BP 151/76
--- NOTE | 2017-10-17 00:26 | Cardiology Report ---
APPROVED REPORT EKG Measurement Heart [id number] Normal sinus rhythm Septal infarct, age undetermined Abnormal ECG
[2017-10-17] MEDS: Norco 7.5mg/325mg tab ORAL PRN ×3 (01:44→16:27)
--- NOTE | 2017-10-17 02:45 | Progress Note ---
DATE: 10/16/2017 SUBJECTIVE: The patient is anxious and irritable. She states that she wants to go home to spend [place]. Dr. Leigh recommended rehabilitation . The patient is easily agitated and is illogical. was present in the room who appears to be illogical as well. The patient has mood instability and presenting with anxiety and decreased appetite. MENTAL STATUS EXAMINATION: The patient is alert and oriented times self, place, and situation she is in. Mood is anxious. Affect is constricted. Congruent with mood. Thought process is concrete. Thought content, no suicidal or homicidal ideations. ASSESSMENT: 1. Anxiety disorder. 2. Depression. PLAN: 1. The patient will be continued on current medication. 2. We will continue to provide the patient with supportive therapy and reality orientation. Pop Miller M.D. DR: COREEN JOB#: [id number] CC:
[2017-10-17 04:00] VITALS: BP 187/85
[2017-10-17] MEDS: NS w/KCl 20mEq 1,000 ML IV SCH (05:50)
[2017-10-17] MEDS: Heparin 5000 units/ml inj SUBQ SCH ×2 (05:59→15:11)
[2017-10-17 08:00] VITALS: BP 144/74
[2017-10-17] MEDS ORDERED: Aspirin EC 81mg tab ORAL SCH (09:00)
[2017-10-17] MEDS: Carvedilol 6.25mg Tab ORAL SCH (09:45)
[2017-10-17] MEDS: Memantine 10mg tab ORAL SCH ×2 (09:45→18:00)
[2017-10-17 12:00] VITALS: BP 132/65
--- NOTE | 2017-10-17 12:09 | Diagnostic Imaging Report ---
Indication: Abdominal pain Technique: CT of the abdomen and pelvis utilizing automated exposure control with intravenous contrast. Venous scanning performed. CT dose: Total DLP 531.6 mGycm; CTDI vol 11.66 mGy Comparison: CT of the pelvis 08/20/2017 Findings: Dependent atelectasis noted in the lung bases. Heart is mildly enlarged. There is no pericardial effusion. Well-circumscribed low-attenuation lesions are noted within the liver. One such lesion measures 1.4 cm and is in the posterior right hepatic lobe. This is not meet criteria for simple hepatic cyst and may represent a hemangioma. Definitive characterization with dynamic contrast-enhanced liver protocol MRI or CT may be obtained as clinically indicated. The gallbladder is mildly distended. There is no CT evidence to suggest an acute cholecystitis. No biliary ductal dilatation. There is a subcentimeter low-attenuation lesion in the superior spleen which may represent a cyst or hemangioma. There is bilateral adrenal gland hyperplasia without discrete nodule or mass. Age-related fatty atrophy of the pancreas is noted. No discrete pancreatic mass lesion appreciated. No appreciable pancreatic ductal dilatation. A 2.7 cm cyst is noted in the upper pole of the left kidney. There is no hydronephrosis bilaterally. Bladder is unremarkable in appearance. Uterus appears mildly atrophic. There is no evidence of free intraperitoneal air. Limited evaluation of the stomach given underdistention. Wall thickening or hyperplasia cannot be excluded. Copious stool is noted throughout the colon. Appendix is not definitively visualized. No definite evidence to suggest obstruction. Diverticulosis without evidence of acute diverticulitis. Severe atherosclerotic calcification of a normal caliber abdominal aorta and its branches. Infrarenal IVC filter in place. Spinal cord stimulator in place. There are severe multilevel degenerative changes of the lower thoracic and lumbar spine. There is grade 1 anterolisthesis of L4 on L5. There is evidence of prior vertebroplasty at L1. Status post fixation of left femoral fracture. Impression: Copious stool throughout the colon possibly reflective of constipation. Correlate clinically. No definite obstruction at this time. No free intraperitoneal air. Limited evaluation of the stomach due to poor distention. Wall thickening cannot be excluded. Consider direct visualization/endoscopy. Diverticulosis without evidence of acute diverticulitis. Mildly distended gallbladder. No evidence to suggest acute cholecystitis. Severe atherosclerotic disease. Additional findings as above. This corresponds with the statrad preliminary report. The CT scanner at [facility] is accredited by the [employer] and the scans are performed using protocols designed to limit radiation exposure to as low as reasonably achievable to attain images of sufficient resolution adequate for diagnostic evaluation.
--- NOTE | 2017-10-17 15:52 | Internal Med Progress Note ---
Subjective Physician Name Jeff Leigh Attending Physician Jeff Leigh MD Current Medications Medications (Trade) Dose Ordered Sig/Lesa Route PRN Reason Start Time Stop Time Status Last Admin Dose Admin Acetaminophen/ Codeine Phosphate (Tylenol #3) 1 tab Q6H PRN ORAL Moderate Pain (Pain Scale 4-6) 10/16/17 17:30 10/21/17 17:29 Acetaminophen/ Hydrocodone Bitart ([place] 7.5/325) 1 ea Q6H PRN ORAL Severe Pain (Pain Scale 7-10) 10/16/17 17:30 10/21/17 17:29 10/17/17 08:05 Alprazolam (Xanax) 0.25 mg Q6H PRN ORAL For Anxiety 10/16/17 17:30 10/23/17 17:29 Aspirin (Ecotrin) 81 mg DAILY ORAL 10/17/17 09:00 11/14/17 08:59 10/17/17 09:45 Carvedilol (Coreg) 6.25 mg EVERY 12 HOURS ORAL 10/16/17 21:00 11/14/17 20:59 10/17/17 09:45 Escitalopram Oxalate (Lexapro) 10 mg DAILY ORAL 10/17/17 09:00 11/16/17 08:59 10/17/17 09:44 Heparin Sodium (Porcine) (Heparin 5000 units/ml) 5,000 units EVERY 8 HOURS SUBQ 10/16/17 22:00 11/13/17 21:59 10/17/17 15:11 Levothyroxine Sodium (Synthroid) 75 mcg ACBREAKFAST ORAL 10/17/17 06:30 11/14/17 06:29 10/17/17 06:10 Memantine (Namenda) 10 mg TWICE A DAY ORAL 10/16/17 18:00 11/13/17 20:59 10/17/17 09:45 Nitroglycerin (Ntg) 0.4 mg Q5MIN X 3 DOSES PRN SL Prn Chest Pain 10/16/17 17:30 11/15/17 17:29 Nortriptyline HCl (Pamelor) 75 mg QHS ORAL 10/16/17 21:00 11/13/17 20:59 10/16/17 21:29 Ondansetron HCl (Zofran) 4 mg Q6H PRN IV Nausea & Vomiting 10/16/17 21:00 11/14/17 14:59 Pravastatin Sodium (Pravachol) 40 mg BEDTIME ORAL 10/16/17 21:00 11/13/17 20:59 10/16/17 21:28 Sodium Chloride 1,000 ml @ 75 mls/hr [id number] IV 10/16/17 17:30 11/14/17 17:29 10/17/17 05:50 Allergies: Coded Allergies: GABAPENTIN (Verified Allergy, Unknown, 08/20/17) HYDROCHLOROTHIAZIDE (Verified Allergy, Unknown, 08/20/17) PENTAZOCINE (Verified Allergy, Unknown, 08/20/17) Uncoded Allergies: NEUROTIN (Allergy, Unknown, 10/14/17) Subjective awake, alert, responsive, C/O less LLQ abdominal pain Objective Last Vital Signs Date Time Temp Pulse Resp B/P (MAP) Pulse Ox O2 Delivery O2 Flow Rate FiO2 10/17/17 12:00 98.2 81 20 132/65 95 Room Air Microbiology Date/Time Source Procedure Growth Status 10/15/17 06:00 Nasal Nares MRSA Culture - Final NO METHICILLIN RESISTANT STAPH AUREUS... Complete 10/15/17 06:00 Rectum VRE Culture - Final NO VANCOMYCIN RESISTANT ENTEROCOCCUS ... Complete Intake and Output 10/16/17 10/17/17 19:00 07:00 Intake Total 1265 ml 1065 ml Output Total 550 ml Balance 715 ml 1065 ml Intake Oral 590 ml 240 ml IV Total 675 ml 825 ml Output Urine Total 550 ml # Voids 1 5 Objective GENERAL: The patient is awake, responsive and anxious. HEAD AND NECK: Pupils reactive to light. Extraocular movements intact. NECK: Supple. No JVD. LUNGS: Good air entry. No wheezing or rales. HEART: S1 and S2. Regular rhythm. No Murmur. ABDOMEN: Soft, nondistended, and less LLQ tenderness. Positive bowel sounds. EXTREMITIES: No cyanosis, clubbing, or edema. NEUROLOGIC: Cranial nerves II through XII grossly intact. Motor is 5/5 in all extremities. Gait is intact. Assessment/Plan Assessment/Plan ASSESSMENT: 1. Dehydration. 2. Severe weakness. 3. Mild elevation of the lactic acidosis. 4. Diabetes type 2 with diabetic neuropathy. 5. Hypertension. 6. Dyslipidemia. 7. Hypovolemia with acute kidney injury with acute tubular necrosis. 8. LLQ abdominal pain most likely due to constipation. PLAN: Accu-Chek with sliding scale. PT evaluation. Code status is Full Code. DVT prophylaxis: Heparin SQ Fleet enema DC to SNF today. CT abdominal and pelvic Impression: Copious stool throughout the colon possibly reflective of constipation. Correlate clinically. No definite obstruction at this time. No free intraperitoneal air. Limited evaluation of the stomach due to poor distention. Wall thickening cannot be excluded. Consider direct visualization/endoscopy. Diverticulosis without evidence of acute diverticulitis. Mildly distended gallbladder. No evidence to suggest acute cholecystitis Severe atherosclerotic disease. Jeff Leigh MD Oct 17, 2017 15:52
[2017-10-17] MEDS ORDERED: ALPRAZOLAM0.25 M2 ORAL (15:58)
[2017-10-17 16:00] VITALS: BP 139/86
[2017-10-17] MEDS ORDERED: ACETAMINOPHEN-1 EAC1 ORAL (16:00)
[2017-10-17] MEDS ORDERED: XANAX0.25 MG ORAL (16:04)
[2017-10-17] MEDS ORDERED: Fleet's Enema 133ml RECTAL ONE (16:15)
[2017-10-17] MEDS ORDERED: COREG6.25 MG ORAL (16:24)
[2017-10-17] MEDS ORDERED: LEXAPRO10 MG ORAL (16:25)
[2017-10-17] MEDS ORDERED: NORCO1 E1 ORAL ×2 (16:27→16:28)
[2017-10-17] MEDS ORDERED: NITROGLYCERIN0.4 MG SL (16:34)
--- NOTE | 2017-10-18 03:30 | Progress Note ---
DATE: 10/17/2017 SUBJECTIVE: The patient is doing well, still anxious, and has insight into her mental condition. The patient's is slightly decreased. Mood is anxious. with medications, she has been taking Lexapro, and I spoke with her . MENTAL STATUS EXAMINATION: The patient is alert and oriented times self, place, date, and situation. Mood is anxious. Affect is constricted, congruent with mood. Thought process is linear. Thought content, no suicidal or homicidal ideations. Insight and judgment is poor. ASSESSMENT: 1. Major depressive disorder. 2. Anxiety disorder. PLAN: 1. Continue Lexapro. May consider Klonopin low-dose. 2. I recommend alf versus home. Pop Miller M.D. DR: COREEN JOB#: [id number] CC:
--- NOTE | 2017-10-18 15:21 | Cardiology Report ---
APPROVED REPORT EKG Measurement Heart [id number] Normal sinus rhythm Septal infarct, age undetermined Abnormal ECG
--- NOTE | 2017-10-21 20:50 | Discharge Summary ---
Discharge Summary Hospital Course Date of Admission Oct 14, 2017 at 17:39 Date of Discharge Oct 17, 2017 at 18:58 Admitting Diagnosis WEAKNESS DIZZINESS HPI Radha Pena is a 87 year old female who was admitted on Oct 14, 2017 at 17:39 for Weakness/Diziness Hospital Course dc summary #[id number] Discharge Medications Continued Medications: Acetaminophen With Codeine (T#3) (Tylenol #3 Tab*) Y Tab 1 TAB ORAL Q6HR PRN for Moderate Pain (Pain Scale 4-6), TAB Acetaminophen/Hydrocodone ([place] 7.5-325 Tablet) 1 Each Tablet 1 TAB ORAL Q6HR PRN for Severe Pain (Pain Scale 7-10), #30 TAB 0 Refills Alprazolam (Alprazolam) 0.25 Mg Tab.rapdis 0.25 MG ORAL Q6HR PRN for For Anxiety, TAB Aspirin* (Aspir 81*) 81 Mg Tablet.dr 81 MG ORAL DAILY, TAB Carvedilol (Coreg) 6.25 Mg Tablet 6.25 MG ORAL EVERY 12 HOURS, TAB Escitalopram Oxalate* (Lexapro*) 10 Mg Tablet 10 MG ORAL DAILY, TAB Levothyroxine Sodium* (Levothyroxine Sodium*) 75 Mcg Tablet 75 MCG ORAL DAILY, TAB Take in the morning on an empty stomach, at least 30 minutes before food. Memantine Hcl* (Namenda*) 10 Mg Tablet 10 MG ORAL TWICE A DAY, TAB Nitroglycerin (Nitroglycerin) 0.4 Mg Tab.subl 0.4 MG SL, TAB Nortriptyline Hcl* (Pamelor*) 25 Mg Capsule 75 MG ORAL DAILY, #10 CAP 0 Refills Pravastatin Sodium (Pravachol) 40 Mg Tablet 40 MG ORAL BEDTIME, TAB Discontinued Medications: Acetaminophen/Hydrocodone ([place] 7.5-325 Tablet) 1 Each Tablet 1 TAB ORAL Q6H PRN for Severe Pain (Pain Scale 7-10), TAB 0 Refills Alpha Lipoic Acid (Alpha Lipoic Acid) 50 Mg Capsule Unknown Dose PO DAILY, CAP Alprazolam* (Xanax*) 0.25 Mg Tablet 0.25 MG ORAL Q6HR, #30 TAB 0 Refills Biotin (Biotin) 5,000 Mcg Tab.rapdis 5000 MCG PO DAILY, TAB Bromelains (Bromelains) 500 Mg Tablet 500 MG PO DAILY, TAB Buprenorphine (Buprenorphine) 1 Each Patch.tdwk 1 EACH TD, PATCH Dicyclomine Hcl* (Dicyclomine Hcl*) 10 Mg Capsule 20 MG PO Q6HR, CAP Iron Aspgly/C/B12/Fa/Ca-Th/Suc (Multigen Folic Caplet) 1 Each Tablet 1 EACH PO BID, TAB Metformin HCl (Metformin HCl ER) 500 Mg [id number] 500 MG PO BID, TAB Metoprolol Succinate* (Metoprolol Succinate*) 25 Mg Tab.er.24h 25 MG ORAL DAILY, TAB Nitrofurantoin Monohyd/M-Cryst* (Macrobid 100 Mg*) 100 Mg Capsule 100 MG ORAL EVERY 12 HOURS for 7 Days, #14 CAP Ranitidine Hcl* (Zantac*) 150 Mg Tablet 150 MG ORAL DAILY, #30 TAB 0 Refills Discharge Condition Upon Discharge: stable Discharge Disposition Patient was discharged to SNF/Subacute Facility(03) Discharge Diagnoses: Discharge Instructions Discharge Instructions Special Instructions I have been assigned to complete a D/C Summary on this account. I was not involved in the patient management Bethany Rebolledo NP ([place]) Oct 21, 2017 20:50
--- NOTE | 2017-10-22 04:45 | Discharge Summary 2 SIG ---
DATE OF ADMISSION: 10/14/2017 DATE OF DISCHARGE: 10/17/2017 REASON FOR ADMISSION: 87 years old female with past medical history of hypertension, diabetes, dyslipidemia and diabetic polyneuropathy, history of left hip fracture, status post open reduction and internal fixation, was brought to the hospital with complaints of dizziness and weakness. Laboratory workup revealed no leukocytosis, stable hemoglobin and hematocrit, stable electrolytes. Chest x-ray revealed no acute cardiopulmonary pathology. EKG revealed normal sinus rhythm. BUN -33 and creatinine -1.3. Lactic acid above 2. Urinalysis negative. The patient was admitted with diagnoses of acute kidney injury with acute tubular necrosis secondary to hypovolemia, diabetes mellitus type 2, diabetic neuropathy , hypertension, dyslipidemia, dehydration, severe weakness, and mild lactic acidosis. HOSPITAL COURSE: The patient was admitted to telemetry floor. The patient was started on the IV hydration. Renal parameters and electrolytes were closely monitored. Blood sugar was managed with sliding scale of insulin. Blood pressure was managed with beta-fernandez, remained stable. DVT and GI prophylaxes provided. With IV hydration renal parameters down to normal. BUN from 33 down to 17 and creatinine from 1.3 down to 1.0. The patient complained of left lower quadrant abdominal pain. CT of the abdomen and pelvis revealed copious stool throughout the colon, likely representing constipation. Intensive bowel regimen was instituted. The patient had bowel movement. Left lower quadrant abdominal pain resolved , likely was secondary to constipation. Continue bowel regimen at the correction facility. Psychiatrist seen and evaluated the patient and diagnosed the patient with anxiety disorder and depression. The patient was provided with supportive therapy and reality orientation. Current psychiatric medication regimen was continued. The patient clinically improved and was stable for discharge to correction facility. FINAL DIAGNOSES: 1. Dehydration. 2. Mild lactic acidosis. 3. Acute kidney injury with acute tubular necrosis, secondary to hypovolemia. 4. Severe weakness. 5. Diabetes mellitus type 2 with diabetic neuropathy. 6. Hypertension. 7. Dyslipidemia. 8. Left lower quadrant abdominal pain likely secondary to constipation, resolved. 9. Major depressive disorder. 10. Anxiety disorder. DISCHARGE MEDICATIONS: See medication reconciliation list. DISCHARGE INSTRUCTIONS: The patient discharged to correction facility. FOLLOWUP: Follow up with medical doctor at the facility. Jeff Leigh M.D. I have been assigned to dictate discharge summary on this account and I was not involved in the patient's management. Bethany Rebolledo (Vanchtein) NOriPOri DR: Be JOB#: [id number] CC: ERIN
== END 2017-10-17 18:58 | DRG 640 ==
LOC: EDBD 13:23 → EMR 15:33 → EDBEDREQ 17:23 → 2E 17:39 → 3E 10-16 16:40
DX: E86.0 Dehydration (principal); N17.0 Acute kidney failure with tubular necrosis; E86.1 Hypovolemia; E87.2 Acidosis; E11.40 Type 2 diabetes mellitus with diabetic neuropathy, unspecified; I10 Essential (primary) hypertension; E78.5 Hyperlipidemia, unspecified; Z88.6 Allergy status to analgesic agent; Z88.8 Allergy status to other drugs, medicaments and biological substances; R53.1 Weakness; F41.9 Anxiety disorder, unspecified; F32.9 Major depressive disorder, single episode, unspecified; K59.00 Constipation, unspecified; R10.32 Left lower quadrant pain
CPT/HCPCS: 36415; 71010; 74177; 80048; 80053; 81003; 82550; 82553; 82962; 83605; 83735; 84100; 84484; 85025; 87040; 87081; 93005; 99285; J2405